=== PATIENT | male | born 1970 | race Caucasian/White ===

== ENCOUNTER 2023-08-01 10:51 | Emergency (ER) | payer OTHER, BC, SELFPAY ==
[2023-08-01 11:13] VITALS: BP 135/92; PULSE 90; RESP 16; TEMP 36.9; O2SAT 98; BMI 26.6
--- NOTE | 2023-08-01 11:39 | CRLHL7_ITS ---
For Patients: As a result of the Century Cures Act, medical imaging exams and procedure reports are released immediately into your electronic medical record. You may view this report before your referring provider. If you have questions, please contact your health care provider. INDICATION: Right lower quadrant pain. TECHNIQUE: CT abdomen and pelvis acquired with 100 cc Omnipaque 350 IV contrast. COMPARISON: None. FINDINGS: Lower chest: Unremarkable. Liver: Unremarkable. Normal in size and attenuation. No suspicious masses. Gallbladder and bile ducts: Unremarkable. No stones or inflammation. No biliary dilatation. Pancreas: Unremarkable. No mass or inflammation. Spleen: Unremarkable. Normal in size. No masses. Adrenal glands: Unremarkable. No nodules. Kidneys: Tiny hypodensities, too small to characterize. No suspicious masses, stones, or hydronephrosis. GI tract: Mild thickening/inflammation about the cecum (series 2/image 100). Normal appendix. No bowel obstruction. Vasculature: Abdominal aorta is normal in caliber. Mesenteric arteries are patent. Lymph nodes: No lymphadenopathy. Peritoneum/Abdominal Wall: Unremarkable. No sign of mass or infiltration. No free air or significant free fluid. Pelvis: Prominent prostate gland.. Bones: Unremarkable for age. IMPRESSION: Mild thickening/inflammation about the cecum, possibly focal cecal colitis/diverticulitis or epiploic appendagitis in the absence of leukocytosis/fevers. No CT evidence of appendicitis or drainable fluid collections. Recommend short-term follow-up after treatment to evaluate for resolution. Alternatively, colonoscopy could be performed. Please note that all CT scans at this facility use dose modulation, iterative reconstruction, and/or weight-based dosing when appropriate to reduce radiation dose to as low as reasonably achievable. Dictated by Abe Faith MD @ 08/01/2023 1:02:30 PM (Electronically Signed)
--- NOTE | 2023-08-01 11:40 | ED_ITS ---
HPI - Abdominal Pain General Chief Complaint: Abdominal Pain Stated Complaint: lower rq abdominal pain Time Seen by Provider: 08/01/23 10:53 History of Present Illness HPI narrative: This 53-year-old male comes in reporting right lower quadrant abdominal pain over the past 3 or 4 days. He states that the pain does come and go in that it is minimal when remaining still. He states that he feels increased pain when standing up straight and with certain movements. He does not report any nausea, vomiting, or fevers. He has had some diarrhea and states that he has changed his diet about 3 weeks ago. He states that he is eating meat only, calling it a carnivore diet. Related Data Previous Rx's ?Medication ?Instructions ?Recorded ketorolac 10 mg tablet 10 mg PO Q8H 5 days #15 tabs 08/01/23 Allergies Allergy/AdvReac Type Severity Reaction Status Date / Time No Known Drug Allergies Allergy Verified 08/01/23 11:18 Review of Systems Status of ROS Reports: 10 or more systems reviewed and unremarkable except as noted in History and below Narrative Constitutional: No fevers, no weight gain or loss. Eyes: No discharge. No vision changes. HENT: No congestion, no sore throat, no ear pain. Cardiovascular: No chest pain, no palpitations. Respiratory: No shortness of breath, no wheezes, no cough. Gastrointestinal: Right lower quadrant abdominal pain. Some episodes of diarrhea. Genitourinary: No dysuria, no hematuria. Musculoskeletal: Normal range of motion. Skin: No rashes, no pruritis. Neurological: No dizziness, weakness, sensory change, speech change. Endo/Heme/Allergies: No bruising or bleeding. No polydipsia. Pysch: no suicidality, no anxiety, no insomnia. All other systems reviewed and are negative. Exam Narrative: Exam Narrative: Constitutional: Well-developed, well-nourished, no acute distress. HEENT: Normocephalic, atraumatic. Neck: Normal range of motion. Nontender. Supple. Heart: Regular. No murmurs. Normal rate. Intact distal pulses. Lungs: Clear to auscultation. No chest discomfort. No wheezes, rhonchi, or rales. Abdomen: Normal bowel sounds. Tenderness in the right mid abdomen above McBurney's point. Rovsing sign is mildly positive. Also there is mild rebound tenderness Genitalia: Deferred. Back: No midline tenderness. Normal range of motion. Extremities: Normal range of motion. No injury. Skin: Intact. No rash. Warm. No erythema or pallor. Neurologic: No altered sensation. No weakness. Alert and oriented. Psychiatric: No suicidality. No anxiety or depression. No insomnia. Nursing notes and vitals signs are reviewed. Const: Vital Signs, click to edit/add: Vital Signs - 24 hr 08/01/23 11:13 Temperature 98.5 F Pulse Rate [Right Pulse Oximeter] 90 Respiratory Rate 16 Blood Pressure [Ri ght Upper Arm] 135/92 H Pulse Oximetry 98 Oxygen Delivery Me thod Room Air Course Vital Signs Vital signs: Initial Vital Signs Temperature 98.5 F 08/01/23 11:13 Temperature Source Temporal Artery Scan 08/01/23 11:13 Pulse Rate 90 08/01/23 11:13 Pulse Rhythm Regular 08/01/23 11:13 Pulse Strength 3+ Normal 08/01/23 11:13 Respiratory Rate 16 08/01/23 11:13 Blood Pressure 135/92 H 08/01/23 11:13 Blood Pressure Mean 106 H 08/01/23 11:13 Blood Pressure Position Supine 08/01/23 11:13 Pulse Oximetry 98 08/01/23 11:13 Oxygen Delivery Method Room Air 08/01/23 11:13 Vital Signs Temperature 98.5 F 08/01/23 11:13 Pulse Rate 90 08/01/23 11:13 Respiratory Rate 16 08/01/23 11:13 Blood Pressure 135/92 H 08/01/23 11:13 Pulse Oximetry 98 08/01/23 11:13 Oxygen Delivery Method Room Air 08/01/23 11:13 Temperature 98.5 F 08/01/23 11:13 Pulse Rate 90 08/01/23 11:13 Respiratory Rate 16 08/01/23 11:13 Blood Pressure 135/92 H 08/01/23 11:13 Pulse Oximetry 98 08/01/23 11:13 Oxygen Delivery Method Room Air 08/01/23 11:13 MDM - Abdominal Pain MDM Narrative Medical decision making narrative: This patient comes in with abdominal pain as described above. He is tripping some triggers that could indicate something like an appendicitis so I did recommend IV contrast with CT imaging of his abdomen and pelvis. Labs are acquired and these returned with normal results and his CT scan also is ruling out important things. There is a mild thickening of his colon that may be due to epiploic appendagitis. This was reassuring to the patient. He does have plans to have a colonoscopy done. I did provide a prescription for Toradol. Lab Data Labs: Lab Results 08/01/23 Range/Units 11:50 WBC 6.79 (4.50-11.00) K/uL RBC 5.72 (4.30-5.90) m/uL Hgb 16.6 (13.5-17.5) gm/dL Hct 48.4 (37.0-53.0) % MCV 85 (80-100) fL MCH 29 (26-34) pg MCHC 34 (32-36) gm/dL RDW Coeff of Carly 13.1 (11.5-15.5) % Plt Count 353 (140-440) K/uL Neut % (Auto) 63.7 (42.0-72.0) % Lymph % (Auto) 25.2 (20-44) % [place] % (Auto) 9.6 (0.0-11.0) % Eos % (Auto) 0.9 (0.0-7.0) % Baso % (Auto) 0.3 (0.0-3.0) % Neut # (Auto) 4.33 (1.7-7.0) K/uL Lymph # (Auto) 1.71 (0.90-2.90) K/uL [place] # (Auto) 0.70 (0.00-0.90) K/UL Eos # (Auto) 0.06 (0.00-0.50) K/uL Baso # (Auto) 0.02 (0.00-0.30) K/uL Abs Immat Gran (auto) 0.02 (0.00-0.30) K/uL Imm/Tot Granulo (auto) 0.3 % Sodium 136 (135-149) mmol/L Potassium 4.1 (3.6-5.1) mmol/L Chloride 104 (96-114) mmol/L Carbon Dioxide 16 L (20-32) mmol/L Anion Gap 16 H (7-15) mEq/L BUN 9 (7-30) mg/dL Creatinine 0.8 (0.5-1.5) mg/dL Estimated Creat Clear 116.35 Estimated GFR 107 ml/min Glucose 65 (60-115) mg/dL Calcium 9.2 (8.4-10.6) mg/dL Imaging Data CT scan - abdomen: Radiologist's impression: Mild thickening/inflammation about the cecum, possibly focal cecal colitis/diverticulitis or epiploic appendagitis in the absence of leukocytosis/fevers. No CT evidence of appendicitis or drainable fluid collections. Recommend short-term follow-up after treatment to evaluate for resolution. Alternatively, colonoscopy could be performed. Discharge Plan Discharge Clinical Impression: Abdominal pain Patient Disposition: Home, Self-Care Condition: Stable Additional Instructions: Take medication as needed and indicated. Increase diet as tolerated. Follow up with MD for colonoscopy and otherwise as needed. Return if worsening. Prescriptions: New ketorolac 10 mg tablet 10 mg PO Q8H 5 Days Qty: 15 0RF Follow Up/Referrals: Provider,Not a Local [Primary Care Provider] - Stand Alone Forms: [facility] Info Instructions
[2023-08-01 12:20] LABS: Basophils Absolute Auto 0.02 K/uL (0.00-0.30); Basophils Percent Auto 0.3 % (0.0-3.0); Eosinophils Absolute Auto 0.06 K/uL (0.00-0.50); Eosinophils Percent Auto 0.9 % (0.0-7.0); Hematocrit 48.4 % (37.0-53.0); Hemoglobin* 16.6 gm/dL (13.5-17.5); Immature Granulocytes Abs Auto 0.02 K/uL (0.00-0.30); Immature Granulocytes Pct Auto 0.3 %; Lymphocytes Absolute Auto 1.71 K/uL (0.90-2.90); Lymphocytes Percent Auto 25.2 % (20-44); Mean Corpuscular HGB Conc 34 gm/dL (32-36); Mean Corpuscular Hemoglobin 29 pg (26-34); Mean Corpuscular Volume 85 fL (80-100); Monocytes Percent Auto 9.6 % (0.0-11.0); Neutrophils Absolute Auto 4.33 K/uL (1.7-7.0); Neutrophils Percent Auto 63.7 % (42.0-72.0); Platelet Count* 353 K/uL (140-440); RDW Coefficient of Variation % 13.1 % (11.5-15.5); Red Blood Count 5.72 m/uL (4.30-5.90); White Blood Count* 6.79 K/uL (4.50-11.00)
[2023-08-01 12:22] LABS: Slide Review Reflex No
--- OUTSIDE RECORDS SUMMARY | 2023-08-01 12:23 | XMS_ITS | Clinical Summary ---
Author Organization [facility] Address [place], [place] [address] Care Team Providers Care Support Services Manager Name Role Phone Paris Raymond Primary Care Provider Unav ailable Allergies No known active allergies Medications Medication Sig Dispensed Refills Start Date End Date Status fluticasone (50 mcg per actuation) nasal solution (FLONASE) Inhale 1 [place] into affected nostril(s) once daily. 02/20/2021 Active hydrOXYzine pamoate (VISTARIL) 25 mg capsule Take 25 mg by mouth once daily. 01/11/2021 Active pantoprazole (PROTONIX) 40 mg delayed-release tablet Take 40 mg by mouth once daily. 02/20/2021 Active psyllium husk (MetamuciL) 3.4 gram/5.4 gram powd TAKE 1 TEASPOONFUL BY MOUTH EVERY MORNING MIXED IN JUICE OR WATER DIRECTED *CAN INCREASE TO 2 TEASPOONS DAILY IF NEEDED* 02/20/2021 Active rosuvastatin (CRESTOR) 20 mg tablet Take 0.5 Tablets by mouth at bedtime. 02/21/2021 Active SUMAtriptan (IMITREX) 50 mg tablet Take 50 mg by mouth. 02/20/2021 Acti ve oxyCODONE-acetamin ophen (PERCOCET) 5-325 mg per tabletIndications: Inguinal hernia, right Take 1 Tablet by mouth every 4 hours if needed for Pain. Max acetaminophen dose: 4000mg in 24 hrs. 15 Tablet 06/06/2021 Active Active Problems Problem Noted Date Diagnosed Date Tobacco dependence due to cigarettes 06/01/2021 Migraine 06/01/2021 Obstructive sleep apnea of adult 06/01/2021 Hyperlipidemia 06/01/2021 Herniation of lumbar intervertebral disc without myelopathy 06/01/2021 Overview: Sep 25, 2010 Entered By: KEANU SHANNON Comment: h/o discectomy/surgery Gastroesophageal reflux disease 06/01/2021 Gambling 06/01/2021 Alcohol dependence 06/01/2021 Anxiety 06/01/2021 Major depressive disorder 06/01/2021 Constipation 06/01/2021 Inguinal hernia, right 06/01/2021 Immunizations Name Administration Dates Next Due Hepatitis B (Adult) 04/08/2009,02/23/1997,1996 Influenza Virus, Unspecified 12/10/2012,11/29/19 07 Influenza, IIV3 (Age >=3 years) 01/24/2010 TD, UNSPECIFIED 02/11/2005,02/11/2001 Td (Age >=7 Years) 11/25/2001 Tdap 08/11/2015,04/08/2009 Family History Medical History Relation Name Comments Anesthesia Problem No Family History Social History Tobacco Use Types Packs/Day Years Used Date Smoking Tobacco: Every Day Cigarettes Smokeless Tobacco: Never Tobacco Cessation:Counseling Given: Yes Alcohol Use Standard Drinks/Week Comments Yes 0 (1 standard drink = 0.6 oz pure alcohol) whiskey. 1/4 bottle of 3.75 ml per episode Social Connections Answer Date Recorded Frequency of Communication with Friends and Fami ly Not on file 02/11/2021 Financial Resource Strain Answer Date R ecorded Difficulty of Paying Living Expenses Not on file 02/11/2021 Difficulty of Paying Living Expenses Not on file 02/11/2021 Sex and Gender Information Value Date Recorded Sex Assigned at Not on file Gender Identity Not on file Sexual Orientation Not on file Obstetrics History Last Filed Vital Signs Vital Sign Reading Time Taken Comments Blood Pressure 112/72 06/19/2021 4:09 PM CDT Pulse 83 06/06/2021 5:15 PM CDT Temperature 36.1 ??C (97 ??F) 06/06/2021 3:35 PM CDT Respiratory Rate 18 06/06/2021 5:00 PM CDT Oxygen Saturation 95% 06/06/2021 5:15 PM CDT Inhaled Oxygen Concentration - - Weight 103.8 kg (228 lb 12.8 oz) 06/19/2021 4:09 PM CDT Height 182.2 cm (5' 11.75) 06/06/2021 1:06 PM C DT Body Mass Index 31.25 06/06/2021 1:06 PM CDT Plan of Treatment Health Maintenance Due Date Last Done Comments Depression screening for age 12+ 1984 HIV for age 15-65 02/23/1987 Hepatitis C screening for age 18-79 02/23/1990 Colonoscopy through age 75 02/23/2017 Lipids for age 45-75 02/23/2017 Zoster (shingles) series for age 50+ (1 of 2) 02/23/2022 BMI (ht and wt on same day) for age 18+ 06/01/2022 06/01/2021, 05/10/2021 COVID-19 vaccine series ( season) 2022 Influenza for age 50-64 10/13/2023 12/11/19 13, 01/24/2010, 11/28/2006 Tetanus booster 08/10/2025 08/11/2015, 03/15, 02/11/2005, Additional history exists Tdap Completed 08/11/2015, 04/08/2009 Pneumococcal series for age 6-64 Aged Out No longer eligible based on patient's age to complete this topic Medical Devices Implanted Type Area Support Services Manager Device Identifier Shelf Expiration Date Model / Serial / Lot Mesh Inguinal 3x6in [employer] - [id number] Implanted:Qty: 1 on 06/06/2021 by Kyler Juarez MD at [facility] [employer] 10/08/2024 [id number] / / [id number] Advance Directives * Full Code (Latest Code Status on File) Date Activated Date Inactivated Comments 06/06/2021 12:43 PM 06/06/2021 7:39 PM Question Answer Comments Code Status Discussion: Not Discussed Care Teams Support Services Manager Relationship Specialty Start Date End Date Paris Raymond PCP - General 05/30/07
--- OUTSIDE RECORDS SUMMARY | 2023-08-01 12:23 | XMS_ITS | Encounter Summary ---
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 This section includes the names of all active insurance providers for the patient. Insurance Provider Type of Coverage Plan Name Start of Policy Coverage End of Policy Coverage Group Number Member ID Insurance Provider's Telephone Number Policy Whiting's Name Patient's Relationship to Policy Whiting [employer] PREFERRED PROVIDER ORGANIZAT ION (PPO) FEP BASIC PLUS ONE 2023 [id number] [phone] Lanre CASTANEDA PATIENT [place] F[place] PREFERRED PROVIDER ORGANIZAT ION (PPO) FEP BASIC PLUS ONE 2023 [id number] Lanre CASTANEDA PATIENT [employer] FEP RX PRESCRIPT ION FEPRX Feb 17, 2017 [id number] Lanre CASTANEDA PATIENT Selected Encounter This section includes the information on record at [place] for the Encounter. Date/Time Encounter Type Encounter Description Reason Provider Source June 27, 2023 12:26 PM Outpatient Encounter EVENT (HISTORICAL) [facility] Encounter Template Text not used by [place] Plan of Treatment: Future Appointments (+ 6 months) and Future Tests (+/- 45 days) The Plan of Treatment section includes future care activities for the patient from all [place] treatmentfacilities. This section includes future appointments and future orders which are active, pending or scheduled. Future Appointments This section includes appointments that were scheduled to occur 6 months from the date of the Encounter, up to a maximum of 20 appointments. The data comes from all [place] treatment facilities. Appointment Date/Time Appointment Type Appointme nt Facility Name Nov 28, 2023 02:40 PM AMBULATORY [facility] SURGERY [facility] Active, Pending, and Scheduled Orders This section includes a listing of several types of active, pending, and scheduled orders, including clinic medications orders, diagnostic test orders, procedure orders and consult orders; where the start date of the order is 45 days before the date of the Encounter or 45 days after the date of theEncounter. The data comes from all [facility]. Test Date/Time Test Type Test Details Facility Name May 29, 2023 03:10 PM Consult Order ENT OUTPT Cons Con sultant's Choice [facility] Jul 30, 2023 11:49 AM Consult Order COLONOSCOP Y DIAGNOSTIC OUTPT Cons Solutions Development Analyst[facility] Lab Results: +/- 30 days of the encounter This section includes the Chemistry and Hematology Lab Results on record with [place] for the patient. Radiology Reports and Pathology Reports are provided separately, in subsequent sections. Lab Results This section contains the Chemistry/Hematology Results that were resulted 30 days before or 30 daysafter the date of the Encounter. Date/Time Source Result Type Result - Unit Interpretation Reference Range Comment May 29, 2023 03:25 PM [facility] HEMOGLOBIN A1C Specimen Type: BLOOD Comment: Values obtained from A1C measurements can vary. For typical A1C assays, a reported value of 7.0 could actually be between 6.7 and 7.3 if measured by a reference method. A reported value of 9.0 could actually be between 8.7 and 9.3. Ref: http://www.ngsp .org/CAPdata.as p Ordering Provider: ANA WIGGINS Report Released Date/Time: May 29, 2023 02:58 PM Reporting Lab: [facility] [id number] Performing Lab: [facility] [id number] HEMOGLOBIN A1C 5.2 4.0-6.0 May 29, 2023 03:25 PM [facility] TSH W/REFLEX TO FREE T4 Specimen Type: PLASMA Comment: Elevated triglyceride result from a non-fasting specimen should be interpreted with caution. A fasting panel is recommended for accurate triglycerides when trigs are >200 from a non-fasting specimen. Ordering Provider: ANA WIGGINS Report Released Date/Time: May 29, 2023 02:58 PM Reporting Lab: [facility] [phone] Performing Lab: [facility] [id number] TSH 1.66 u[IU]/mL 0.35-4.94 May 29, 2023 03:25 PM [facility]LE [facility] BASIC METABOLIC PANEL+MG Specimen Type: PLASMA Comment: Elevated triglyceride result from a non-fasting specimen should be interpreted with caution. A fasting panel is recommended for accurate triglycerides when trigs are >200 from a non-fasting specimen. Ordering Provider: ANA WIGGINS Report Released Date/Time: May 29, 2023 02:58 PM Reporting Lab: [facility] [id number] Performing Lab: [facility] [phone] CREATININE 0.8 mg/dL 0.7-1.2 UREA NITROGEN 12 mg/dL 8-26 GLUCOSE 88 mg/dL 70-100 SODIUM 134 mmol/L L 136-145 POTASSIUM 4.1 mmol/L 3.5-5.1 CHLORIDE 105 mmol/L 98-107 CO2 20 mmol/L L 22-29 CALCIUM 9.8 mg/dL 8.4-10.2 MAGNESIUM 1.9 mg/dL 1.6-2.6 ANION GAP 9 mmol/L 5-15 .CREAT EGFR(CKD-EPI) >90 >60 May 29, 2023 03:25 PM [facility] LIPID PANEL,NON-FASTING Specimen Type: PLASMA Comment: Elevated triglyceride result from a non-fasting specimen should be interpreted with caution. A fasting panel is recommended for accurate triglycerides when trigs are >200 from a non-fasting specimen. Ordering Provider: ANA WIGGINS Report Released Date/Time: May 29, 2023 02:58 PM Reporting Lab: [place] [phone] Performing Lab: [facility] [id number] CHOLESTEROL 268 mg/dL H <199 .HDL 31 mg/dL L >40 LDL CALCULATION 185 mg/dL H <99 VLDL CALCULATION 52 mg/dL H <29 NON HDL CHOLESTEROL 237 mg/dL H <129 TRIG(NON FASTING) 258 mg/dL H <149 May 29, 2023 03:25 PM [facility] CBC & DIFF Specimen Type: BLOOD Comment: Automated Differential Performed Ordering Provider: ANA WIGGINS Report Released Date/Time: May 29, 2023 02:58 PM Reporting Lab: [facility] [phone] Performing Lab: [facility] [id number] WBC 8.59 10*3/uL 4.0-11.0 RBC 5.68 10*6/uL 4.6-6.2 HGB 16.5 g/dL 13.5-17.9 HCT 47.7 41-54 MCV 84.0 fL 80-100 MCH 29.0 pg 27-33 MCHC 34.6 g/dL 32.0-37.5 PLT 451 10*3/uL H 150-400 MPV 8.9 fL 7.4-10.4 NEUT 54.1 40.0-80.0 LYMPHS 35.0 15.0-45.0 MONO 9.0 2.0-12.0 EOSINO 0.8 0.0-6.0 BASO 0.5 0.0-2.0 RDW 13.2 11.5-14.5 ABS LYMPH 3.01 10*3/uL 1.0-4.0 ABS MONO 0.77 10*3/uL 0.1-1.0 ABS NEUT 4.65 10*3/uL 2.0-7.7 ABS EOS 0.07 10*3/uL 0-0.5 ABS BASO 0.04 10*3/uL 0-0.2 IG(META,MYELO ,PRO) 0.6 ABS IMMATURE GRAN 0.05 10*3/uL 0-0.1 Social History: Smoking Status (Most current) and Tobacco Use (All prior to encounter date) This section includes the most current, and the historical, smoking and tobacco- related health factors from the [place] facility where the Encounter took place. Current Smoking Status This section includes the most current smoking, or tobacco-related health factor, from the [place] facility where the Encounter took place. Date/Time Current Smoking Status Comment Fede amaya Apr 09, 2017 08:20 AM CURRENT TOBACCO USER [facility] Tobacco Use History This section includes a history of the smoking, or tobacco-related health factors, that were collected on or before the date of the Encounter. The data comes from the [place] facility where the Encounter took place. Date/Time Smoking Status/Tobacco Use Comment F acility Aug 02, 2015 03:27 PM CURRENT TOBACCO USER [facility] Oct 15, 2013 03:00 PM CURRENT TOBACCO USER [facility] Dec 10, 2012 12:12 PM CURRENT TOBACCO USER [facility] Feb 14, 2012 01:04 PM CURRENT TOBACCO USER [facility] Sep 25, 2010 01:00 PM CURRENT TOBACCO USER [facility] Jan 05, 2008 09:13 AM PATIENT IS TOBACCO USER [facility] Apr 22, 2007 03:08 PM CURRENT TOBACCO USER [facility] June 25, 2006 01:48 PM CURRENT TOBACCO USER [facility] Advance Directives: All historical and current Section Date Range: From patient's date of to the date document was created. This section includes ALL of a patient's completed or amended [place] Advance and Rescinded Directives. The entries below indicate that a directive exists for the patient, but an actual copy is not included with this document. The data comes from all [facility]. Date Advance Directives Provider Source Jan 29, 2017 ADVANCE DIRECTIVE DISCUSSION ALEX KURTZ [facility] Radiology Reports: +/- 30 days of the encounter Radiology Reports For cases when an order for radiology services may have been completed prior to the date of the Encounter, the report list includes the Radiology Reports that were completed up to 30 days before dateof the Encounter. For cases when an order for radiology services may have been completed after the date of the Encounter, the report list also includes the Radiology Reports that were completed up to30 days after date of the Encounter. The data comes from all [place] treatment facilities. Date/Time Radiology Report Provider Source June 25, 2023 02:57 PM CHEST 2 VIEWS PA A ND LAT: SALEEM CASTANEDA [id number] -[id number] M Exm Date: JUNE 25, 2023@14:57 Req Phys: KRISTY WIGGINS Pat Loc: [facility] [employer] [facility] RN ( Img Loc: [facility] RADIOLOGY Service: [place] [address] (Case [id number] COMPLETE) CHEST 2 VIEWS PA AND LAT (RAD Detailed) CPT:10118 Reason for Study: cough - follow up pneumonia Clinical History: [place] IS NOT under investigation for COVID-19 or is COVID-19 negative follow up pneumonia Responsible provider name and phone number to notify for critical findings if other than user placing the order and pager listed below: User placing orders pager: Tu [phone] LAST CREATININE 0.8 (05/29/23) Report Status: Verified Date Reported: JUNE 25, 2023 Date Verified: JUNE 25, 2023 Electronic Sales And Service Technician E-Sig:/ES/HUMBERTO CR MD Report: X-RAY EXAM OF chest, PA and lateral INDICATION: Reason for Study: cough - follow up pneumonia [place] IS NOT under investigation for COVID-19 or is COVID-19 negative follow up pneumonia Responsible provider name and phone number to notify for critical findings if other than user placing the order and pager listed below: User placing orders pager: Tu [phone] LAST CREATININE 0.8 (05/29/23) COMPARISON: 05/29/2023 Impression: FINDINGS/IMPRESSION: Heart size and pulmonary vascularity are within normal limits. The appearance of the posterior costophrenic angles is unchanged compared with 05/29/2023. There may be some minimal blunting of the left posterior costophrenic angle, not significantly changed compared with the abdomen pelvis CT dated 02/21/2021. There are no other pulmonary opacities identified. Moderate degenerative changes are seen in the thoracic spine. 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 Img Loc: [facility] RADIOLOGY Service: Unknown (Case [id number] COMPLETE) CHEST 2 VIEWS PA AND LAT (RAD Detailed) CPT:29631 Reason for Study: cough Clinical History: [place] IS NOT under investigation for COVID-19 or is COVID-19 negative cough Responsible provider name and phone number to notify for critical findings if other than user placing the order and pager listed below: User placing orders pager: LAST CREATININE____ Report Status: Verified Date Reported: MAY 29, 2023 Date Verified: MAY 29, 2023 Electronic Sales And Service Technician E-Sig:/ES/GUDELIA HELMS MD Report: EXAMINATION: CHEST 2 VIEWS PA AND LAT 05/29/2023 3:22 PM INDICATION: cough Impression: Heart size and pulmonary vascularity within normal limits. No pulmonary infiltrate or pleural effusion. Subtle blunting of the left posterior costophrenic angle seen on the lateral view. No comparison chest x-ray. Primary Interpreting Staff: GUDELIA HELMS MD, RADIOLOGIST (Electronic Sales And Service Technician) /GUDELIA SINGH [facility]
--- OUTSIDE RECORDS SUMMARY | 2023-08-01 12:23 | XMS_ITS | Continuity of Care Document ---
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 It does not include entries that were removed or entered in error. Problem Status Onset Date Problem Type Date of Resolution Comments Source Alcohol dependence (SNOMED CT 62852403) Active Condition [facility] Anxiety (SNOMED CT 93559742) Active Condition [facility] Constipation Active Condition [facility] Dental abscess Active Condition [facility] Exposure to Potentially Hazardous Substance (SCT 073372010434856) Active Condition Nov 07, 2022 Entered By: Israel WIGGINS Comment: [facility] Gambling Active Condition [facility] Gastroesophageal reflux disease Active Condition [facility] Herniated Lumbar Disc Active Condition Sep 25, 2010 Entered By: KEANU SHANNON Comment: h/o discectomy/ surgery [facility] Hyperlipidemia (SNOMED CT 39282299) Active Condition [facility] Major depressive disorder (SNOMED CT 292904379) Active Condition [facility] Male erectile disorder (ICD-9-CM 302.72/607.84) Active Condition [facility] Migraine Active Condition [facility] Obstructive sleep apnea of adult Active Condition [facility] Other Malaise and Fatigue (ICD-9-CM 780.79) Active Condition [facility] Pain in joint involving ankle and foot (ICD-9-CM 719.47) Active Condition [facility] Posttraumatic stress disorder (SNOMED CT 05014669) Active Condition [facility] Tinea pedis Active Condition [facility] Tinea unguium Active Condition [facility] Tobacco dependence caused by cigarettes (SNOMED CT 41188629526305759) [facility] Diarrhea Inactive Condition 09/25/2010 [facility] Dysuria * (ICD-9-CM 788.1) Inactive Condition 09/25/2010 [facility] Lumbar Radiculopathy (ICD-9-CM 724.4) Inactive Condition 09/25/2010 [facility] Pain, Low Back Inactive Condition 09/25/2010 SHOBHA CASTILLO [facility] Pre-Op Exam Inactive Condition 09/25/2010 [facility] Spinal Stenosis, Lumbar Inactive Condition 09/25/2010 [facility] Diagnosis: ICD-10-CM Z71.89 Other specified counseling Active Diagnosis [facility] Diagnosis: ICD-10-CM J01.90 Acute sinusitis, unspecified Active Diagnosis [facility] Diagnosis: ICD-10-CM Z00.01 Encounter for general adult medical exam w abnormal findings Active Diagnosis [facility] Diagnosis: ICD-10-CM K59.00 Constipation, unspecified Active Diagnosis [facility] Diagnosis: ICD-10-CM L72.3 Sebaceous cyst Active Diagnosis [facility] Diagnosis: ICD-10-CM L72.0 Epidermal cyst Active Diagnosis [facility] Diagnosis: ICD-10-CM R22.2 Localized swelling, mass and lump, trunk Active Diagnosis [facility] Diagnosis: ICD-10-CM F10.10 Alcohol abuse, uncomplicated Active Diagnosis [facility] Diagnosis: ICD-10-CM L98.9 Disorder of the skin and subcutaneous tissue, unspecified Active Diagnosis [facility] Diagnosis: ICD-10-CM F17.210 Nicotine dependence, cigarettes, uncomplicated Active Diagnosis [facility] Diagnosis: ICD-10-CM F43.12 Post-traumatic stress disorder, chronic Active Diagnosis [facility] Diagnosis: ICD-10-CM F33.1 Major depressive disorder, recurrent, moderate Active Diagnosis [facility] Medications Combined list of outpatient medications from Department of Defense and [facility] Affairs facilities.Medications provided include 1) outpatient medications from the last 15 months, and 2) patient-reported medications. Medication Details Route Status Patient Instructions Prescription Expires Prescription Number Last Dispense Date Ordering Provider Order Date Order Qty Source ALBUTEROL 90MCG/ACTUA T (CFC-F) INHL,ORAL,8 .5GM DOSE COUNTER INHALE 2 PUFFS BY MOUTH QID PRN RESPIR ATORY (INHAL ATION) ACTIVE NALLUSAMY ,VASUMATH I 2023 [facility] CEFADROXIL 500MG CAP TAKE TWO CAPSULES BY MOUTH TWICE A DAY ORAL 12/27/2022 [id number] 3 NALLUSAMY ,VASUMATH I 2022 20 [facility] CETIRIZINE HCL 10MG TAB TAKE ONE TABLET BY MOUTH EVERY DAY FOR ALLERGIE S ORAL ACTIVE 05/29/2024 [id number] 4 NALLUSAMY ,VASUMATH I 2023 90 [facility] DOXYCYCLINE HYCLATE 100MG TAB TAKE ONE TABLET BY MOUTH TWICE A DAY FOR ABSCESS ORAL 12/23/2022 [id number] HERMILOPATRICK RACHEL 2022 14 [facility] DOXYCYCLINE HYCLATE 50MG CAP TAKE 2 CAPSULES BY MOUTH TWICE A DAY ORAL ACTIVE NALLUSAMY ,VASUMATH I 2023 [facility] FLUTICASONE PROPIONATE 50MCG/SPRAY SOLN,NASAL, 16GM SPRAY 1 SPRAY IN EACH NOSTRIL TWICE A DAY USE REGULARL Y FOR RELIEF OF ALLERGIE S/CONGES TION NASAL HOLD 03/29/2024 [id number] 4 NALLUSAMY ,VASUMATH I 2023 3 [facility] FLUTICASONE PROPIONATE 50MCG/SPRAY SOLN,NASAL, 16GM SPRAY 1 SPRAY IN EACH NOSTRIL TWICE A DAY USE REGULARL Y FOR RELIEF OF ALLERGIE S/CONGES TION NASAL DISCONT INUED 05/17/2023 [id number] 4 NALLUSAMY ,VASUMATH I 2022 3 [facility] IBUPROFEN 200MG TAB TAKE ONE TABLET THREE TIMES A DAY NEEDED ACTIVE NADIA VARGAS NNE 2006 [facility] LACTOBACILL US ACIDOPHILUS TAB TAKE 1 TABLET BY MOUTH TWICE A DAY FOR SUPPLEME NTATION ORAL ACTIVE 05/29/2024 [id number] 4 NALLUSAMY ,VASUMATH I 2023 200 [facility] LACTOBACILL US ACIDOPHILUS TAB TAKE 1 TABLET BY MOUTH TWICE A DAY FOR SUPPLEME NTATION ORAL DISCONT INUED 11/28/2023 [id number] 3 NALLUSAMY ,VASUMATH I 2022 200 [facility] LORATADINE 10MG TAB TAKE ONE TABLET BY MOUTH EVERY DAY FOR ALLERGIE S ORAL DISCONT INUED BY PROVIDE R 03/29/2024 [id number] 4 NALLUSAMY ,VASUMATH I 2023 90 [facility] NICOTINE 21MG/24HRS PATCH APPLY 1 PATCH TOPICALL Y EVERY DAY TO QUIT TOBACCO TOPICA L 07/14/2023 [id number] 3 SMILEY MARIA 2022 28 [facility] NICOTINE POLACRILEX 2MG MINI LOZENGE DISSOLVE 1 MINI LOZENGE IN MOUTH EVERY 2 HOURS NEEDED TO QUIT TOBACCO ORAL ACTIVE 08/18/2023 [id number] 3 SMILEY MARIA 2022 162 [facility] NICOTINE POLACRILEX 4MG MINI LOZENGE DISSOLVE 1 MINI LOZENGE IN MOUTH EVERY 2 HOURS NEEDED TO QUIT TOBACCO ORAL DISCONT INUED (EDIT) 07/14/2023 [id number] 3 SMILEY MARIA 2022 162 [facility] PANTOPRAZOL E NA 40MG TAB,EC TAKE ONE TABLET BY MOUTH EVERY DAY NEEDED FOR STOMACH ACID - TAKE ON EMPTY STOMACH ORAL ACTIVE 05/29/2024 [id number] 4 NALLUSAMY ,VASUMATH I 2023 90 [facility] PANTOPRAZOL E NA 40MG TAB,EC TAKE ONE TABLET BY MOUTH EVERY DAY NEEDED ONE-HALF HOUR BEFORE EATING. TAKE 30 MIN BEFORE FIRST ORAL INTAKE OF THE MORNING OR 2 HOURS AFTER LAST MEAL OF EVENING LONG STAY CONSISTE NT ONE-HALF HOUR BEFORE EATING. TAKE 30 MIN BEFORE FIRST ORAL INTAKE OF THE MORNING OR 2 HOURS AFTER LAST MEAL OF EVENING LONG STAY CONSISTE NT ORAL DISCONT INUED 05/17/2023 [id number] 3 NALLUSAMY ,VASUMATH I 2022 90 [facility] POLYETHYLEN E GLYCOL 3350 PWDR,ORAL TAKE 17 GRAMS BY MOUTH EVERY DAY NEEDED FOR CONSTIPA TION *MIX IN 4 TO 8 OUNCES OF LIQUID DIRECTED *USE COVER TO MEASURE POWDER* ORAL ACTIVE 05/29/2024 [id number] 4 NALLUSAMY ,VASUMATH I 2023 510 [facility] POLYETHYLEN E GLYCOL 3350 PWDR,ORAL TAKE 17 GRAMS BY MOUTH EVERY DAY NEEDED FOR CONSTIPA TION *MIX IN 4 TO 8 OUNCES OF LIQUID DIRECTED *USE COVER TO MEASURE POWDER* ORAL DISCONT INUED 05/17/2023 [id number] 3 NALLUSAMY ,VASUMATH I 2022 510 [facility] PSYLLIUM PWDR,ORAL TAKE 1 TEASPOON FUL BY MOUTH EVERY MORNING MIXED IN JUICE OR WATER DIRECTED *CAN INCREASE TO 2 TEASPOON S DAILY IF NEEDED* ORAL 05/17/2023 [id number] 3 NALLUSAMY ,VASUMATH I 2022 1170 [facility] ROSUVASTATI N CA 10MG TAB TAKE ONE TABLET BY MOUTH AT BEDTIME ORAL ACTIVE 05/29/2024 [id number] 4 NALLUSAMY ,VASUMATH I 2023 90 [facility] ROSUVASTATI N CA 10MG TAB TAKE ONE TABLET BY MOUTH AT BEDTIME ORAL DISCONT INUED 05/19/2023 [id number] 3 NALLUSAMY ,VASUMATH I 2022 90 [facility] ROSUVASTATI N CA 20MG TAB TAKE ONE-HALF TABLET BY MOUTH AT BEDTIME ORAL DISCONT INUED (EDIT) 05/17/2023 [id number] 3 NALLUSAMY ,VASUMATH I 2022 45 [facility] SUMATRIPTAN SUCCINATE 50MG TAB TAKE ONE TABLET BY MOUTH EVERY DAY NEEDED FOR HEADACHE - MAY REPEAT ONCE AFTER 2 HOURS IF NEEDED. MAXIMUM OF 4 TABLETS (200MG) WITHIN 24 HOURS. ORAL ACTIVE 05/29/2024 [id number] 4 NALLUSAMY ,VASUMATH I 2023 9 [facility] SUMATRIPTAN SUCCINATE 50MG TAB TAKE ONE TABLET BY MOUTH EVERY DAY NEEDED MAY REPEAT AFTER 2 HOURS IF NEEDED. MAXIMUM OF 200 MG IN 24 HOURS. FOR HEADACHE ORAL DISCONT INUED 05/17/2023 [id number] 3 TARIQ WIGGINS I 2022 9 [facility] Allergies, Adverse Reactions, Alerts Combined list of allergies from Department of Defense and Veterans Affairs facilities. It does not include entries that were removed or entered in error. Substance Category Reaction Severity Reaction type Status Date Reported Comments Source LORATADINE Propensity to adverse reactions to drug (finding) Anxiety active 4 [facility] Immunizations Combined list of available immunizations from the Department of Defense and Veterans Affairs facilities. Immunization Series Date Given Administered By Site Reaction Lot Number CVX Code Drug Wic Site Coordinator Status Comments Source TDAP 2015 115 complet ed [id number], 12/29/17 [facility] INFLUENZA, UNSPECIFIED FORMULATION 2012 88 complet ed [facility] TD(ADULT) UNSPECIFIED FORMULATION 2005 139 complet ed [facility] TD(ADULT) UNSPECIFIED FORMULATION 2001 139 complet ed [facility] Results Combined list of recent chemistry, hematology and other laboratory results from Department of [employer] and Veterans Affairs, ranging from 15 months to all on record, depending upon the facility. Order Name Results Value Reference Range Date Interpretation Specimen Comments Source OCCULT BLOOD FIT X1 SCREEN HEMOGLOBIN .GASTROINT ESTINAL.LO WER [PRESENCE] IN STOOL BY IMMUNOASSA Y POSITIVE 07/28 [facility] Specimen Type: FECES No comment entered. Ordering Provider: Israel WIGGINS Report Released Date/Time: May 29, 2023 02:58 PM Reporting Lab: [facility] [phone] Performing Lab: [facility] [address] [facility] HEMOGLOB IN A1C HEMOGLOBIN A1C/HEMOGL OBIN.TOTAL IN BLOOD 5.2 4.0 - 6.0 05/28 Specimen Type: BLOOD Comment: Values obtained from A1C measurement s can vary. For typical A1C assays, a reported value of 7.0 could actually be between 6.7 and 7.3 if measured by a reference method. A reported value of 9.0 could actually be between 8.7 and 9.3. Ref: http://www. [facility].org/[place] Pdata.asp Ordering Provider: Israel WIGGINS Report Released Date/Time: May 29, 2023 02:58 PM Reporting Lab: [facility] [address] Performing Lab: [facility] [address] [facility] TSH W/REFLEX TO FREE T4 THYROTROPI N [UNITS/VOL UME] IN SERUM OR PLASMA 1.66 u[IU]/mL 0.35 - 4.94 05/28 Specimen Type: PLASMA Comment: Elevated triglycerid e result from a non-fasting specimen should be interpreted with caution. A fasting panel is recommended for accurate triglycerid es when trigs are >200 from a non-fasting specimen. Ordering Provider: Israel WIGGINS Report Released Date/Time: May 29, 2023 02:58 PM Reporting Lab: [facility] [address] Performing Lab: [facility] [address] [facility] LIPID PANEL,NO N-FASTIN G CHOLESTERO L [MASS/VOLU ME] IN SERUM OR PLASMA 268 mg/dL <199 - 199 05/28 H Specimen Type: PLASMA Comment: Elevated triglycerid e result from a non-fasting specimen should be interpreted with caution. A fasting panel is recommended for accurate triglycerid es when trigs are >200 from a non-fasting specimen. Ordering Provider: Israel WIGGINS Report Released Date/Time: May 29, 2023 02:58 PM Reporting Lab: [facility] [address] Performing Lab: [facility] [address] [facility] LIPID PANEL,NO N-FASTIN G CHOLESTERO L IN HDL [MASS/VOLU ME] IN SERUM OR PLASMA 31 mg/dL 40 05/28 L Specimen Type: PLASMA Comment: Elevated triglycerid e result from a non-fasting specimen should be interpreted with caution. A fasting panel is recommended for accurate triglycerid es when trigs are >200 from a non-fasting specimen. Ordering Provider: Israel WIGGINS Report Released Date/Time: May 29, 2023 02:58 PM Reporting Lab: [facility] [address] Performing Lab: [place] [phone] [facility] LIPID PANEL,NO N-FASTIN G CHOLESTERO L IN LDL [MASS/VOLU ME] IN SERUM OR PLASMA BY CALCULATIO N 185 mg/dL <99 - 99 05/28 H Specimen Type: PLASMA Comment: Elevated triglycerid e result from a non-fasting specimen should be interpreted with caution. A fasting panel is recommended for accurate triglycerid es when trigs are >200 from a non-fasting specimen. Ordering Provider: Israel WIGGINS Report Released Date/Time: May 29, 2023 02:58 PM Reporting Lab: [facility] [address] Performing Lab: [facility] [address] [facility] LIPID PANEL,NO N-FASTIN G CHOLESTERO L IN VLDL [MASS/VOLU ME] IN SERUM OR PLASMA BY CALCULATIO N 52 mg/dL <29 - 29 05/28 H Specimen Type: PLASMA Comment: Elevated triglycerid e result from a non-fasting specimen should be interpreted with caution. A fasting panel is recommended for accurate triglycerid es when trigs are >200 from a non-fasting specimen. Ordering Provider: Israel WIGGINS Report Released Date/Time: May 29, 2023 02:58 PM Reporting Lab: [facility] [address] Performing Lab: [facility] [address] [facility] LIPID PANEL,NO N-FASTIN G CHOLESTERO L NON HDL [MASS/VOLU ME] IN SERUM OR PLASMA 237 mg/dL <129 - 129 05/28 H Specimen Type: PLASMA Comment: Elevated triglycerid e result from a non-fasting specimen should be interpreted with caution. A fasting panel is recommended for accurate triglycerid es when trigs are >200 from a non-fasting specimen. Ordering Provider: Israel WIGGINS Report Released Date/Time: May 29, 2023 02:58 PM Reporting Lab: [facility] [phone] Performing Lab: [facility] [address] [facility] LIPID PANEL,NO N-FASTIN G TRIGLYCERI DE [MASS/VOLU ME] IN SERUM OR PLASMA 258 mg/dL <149 - 149 05/28 H Specimen Type: PLASMA Comment: Elevated triglycerid e result from a non-fasting specimen should be interpreted with caution. A fasting panel is recommended for accurate triglycerid es when trigs are >200 from a non-fasting specimen. Ordering Provider: Israel WIGGINS Report Released Date/Time: May 29, 2023 02:58 PM Reporting Lab: [facility] [phone] Performing Lab: [facility] [address] [facility] BASIC METABOLI C PANEL+MG CREATININE [MASS/VOLU ME] IN SERUM OR PLASMA 0.8 mg/dL 0.7 - 1.2 05/28 Specimen Type: PLASMA Comment: Elevated triglycerid e result from a non-fasting specimen should be interpreted with caution. A fasting panel is recommended for accurate triglycerid es when trigs are >200 from a non-fasting specimen. Ordering Provider: Israel WIGGINS Report Released Date/Time: May 29, 2023 02:58 PM Reporting Lab: [facility] [address] Performing Lab: [facility] [address] [facility] BASIC METABOLI C PANEL+MG UREA NITROGEN [MASS/VOLU ME] IN SERUM OR PLASMA 12 mg/dL 8 - 26 05/28 Specimen Type: PLASMA Comment: Elevated triglycerid e result from a non-fasting specimen should be interpreted with caution. A fasting panel is recommended for accurate triglycerid es when trigs are >200 from a non-fasting specimen. Ordering Provider: Israel WIGGINS Report Released Date/Time: May 29, 2023 02:58 PM Reporting Lab: [facility] [address] Performing Lab: [facility] [address] [facility] BASIC METABOLI C PANEL+MG GLUCOSE [MASS/VOLU ME] IN SERUM OR PLASMA 88 mg/dL 70 - 100 05/28 Specimen Type: PLASMA Comment: Elevated triglycerid e result from a non-fasting specimen should be interpreted with caution. A fasting panel is recommended for accurate triglycerid es when trigs are >200 from a non-fasting specimen. Ordering Provider: Israel WIGGINS Report Released Date/Time: May 29, 2023 02:58 PM Reporting Lab: [facility] [address] Performing Lab: [facility] [address] [facility] BASIC METABOLI C PANEL+MG SODIUM [MOLES/VOL UME] IN SERUM OR PLASMA 134 mmol/L 136 - 145 05/28 L Specimen Type: PLASMA Comment: Elevated triglycerid e result from a non-fasting specimen should be interpreted with caution. A fasting panel is recommended for accurate triglycerid es when trigs are >200 from a non-fasting specimen. Ordering Provider: Israel WIGGINS Report Released Date/Time: May 29, 2023 02:58 PM Reporting Lab: [facility] [phone] Performing Lab: [facility] [address] [facility] BASIC METABOLI C PANEL+MG POTASSIUM [MOLES/VOL UME] IN SERUM OR PLASMA 4.1 mmol/L 3.5 - 5.1 05/28 Specimen Type: PLASMA Comment: Elevated triglycerid e result from a non-fasting specimen should be interpreted with caution. A fasting panel is recommended for accurate triglycerid es when trigs are >200 from a non-fasting specimen. Ordering Provider: Israel WIGGINS Report Released Date/Time: May 29, 2023 02:58 PM Reporting Lab: [facility] [address] Performing Lab: [facility] [address] [facility] BASIC METABOLI C PANEL+MG CHLORIDE [MOLES/VOL UME] IN SERUM OR PLASMA 105 mmol/L 98 - 107 05/28 Specimen Type: PLASMA Comment: Elevated triglycerid e result from a non-fasting specimen should be interpreted with caution. A fasting panel is recommended for accurate triglycerid es when trigs are >200 from a non-fasting specimen. Ordering Provider: Israel WIGGINS Report Released Date/Time: May 29, 2023 02:58 PM Reporting Lab: [facility] [address] Performing Lab: [facility] [address] [facility] BASIC METABOLI C PANEL+MG CARBON DIOXIDE, TOTAL [MOLES/VOL UME] IN SERUM OR PLASMA 20 mmol/L 22 - 29 05/28 L Specimen Type: PLASMA Comment: Elevated triglycerid e result from a non-fasting specimen should be interpreted with caution. A fasting panel is recommended for accurate triglycerid es when trigs are >200 from a non-fasting specimen. Ordering Provider: Israel WIGGINS Report Released Date/Time: May 29, 2023 02:58 PM Reporting Lab: [facility] [address] Performing Lab: [facility] [address] [facility] BASIC METABOLI C PANEL+MG CALCIUM [MASS/VOLU ME] IN SERUM OR PLASMA 9.8 mg/dL 8.4 - 10.2 05/28 Specimen Type: PLASMA Comment: Elevated triglycerid e result from a non-fasting specimen should be interpreted with caution. A fasting panel is recommended for accurate triglycerid es when trigs are >200 from a non-fasting specimen. Ordering Provider: Israel WIGGINS Report Released Date/Time: May 29, 2023 02:58 PM Reporting Lab: [facility] [address] Performing Lab: [facility] [address] [facility] BASIC METABOLI C PANEL+MG MAGNESIUM [MASS/VOLU ME] IN SERUM OR PLASMA 1.9 mg/dL 1.6 - 2.6 05/28 Specimen Type: PLASMA Comment: Elevated triglycerid e result from a non-fasting specimen should be interpreted with caution. A fasting panel is recommended for accurate triglycerid es when trigs are >200 from a non-fasting specimen. Ordering Provider: Israel WIGGINS Report Released Date/Time: May 29, 2023 02:58 PM Reporting Lab: [facility] [address] Performing Lab: [facility] [address] [facility] BASIC METABOLI C PANEL+MG ANION GAP IN SERUM OR PLASMA 9 mmol/L 5 - 15 05/28 Specimen Type: PLASMA Comment: Elevated triglycerid e result from a non-fasting specimen should be interpreted with caution. A fasting panel is recommended for accurate triglycerid es when trigs are >200 from a non-fasting specimen. Ordering Provider: Israel WIGGINS Report Released Date/Time: May 29, 2023 02:58 PM Reporting Lab: [facility] [address] Performing Lab: [facility] [address] [facility] BASIC METABOLI C PANEL+MG GLOMERULAR FILTRATION RATE/1.73 SQ M.PREDICTE D [VOLUME RATE/AREA] IN SERUM, PLASMA OR BLOOD BY CREATININE -BASED FORMULA (CKD-EPI 2020) >90 60 05/28 Specimen Type: PLASMA Comment: Elevated triglycerid e result from a non-fasting specimen should be interpreted with caution. A fasting panel is recommended for accurate triglycerid es when trigs are >200 from a non-fasting specimen. Ordering Provider: Israel WIGGINS Report Released Date/Time: May 29, 2023 02:58 PM Reporting Lab: [facility] [address] Performing Lab: [facility] [address] [facility] CBC & DIFF LEUKOCYTES [#/VOLUME] IN BLOOD BY AUTOMATED COUNT 8.59 10*3/uL 4.0 - 11.0 05/28 Specimen Type: BLOOD Comment: Automated Differentia l Performed Ordering Provider: Israel WIGGINS Report Released Date/Time: May 29, 2023 02:58 PM Reporting Lab: [facility] [address] Performing Lab: [facility] [address] [facility] CBC & DIFF ERYTHROCYT ES [#/VOLUME] IN BLOOD BY AUTOMATED COUNT 5.68 10*6/uL 4.6 - 6.2 05/28 Specimen Type: BLOOD Comment: Automated Differentia l Performed Ordering Provider: Israel WIGGINS Report Released Date/Time: May 29, 2023 02:58 PM Reporting Lab: [facility] [address] Performing Lab: [facility] [address] [facility] CBC & DIFF HEMOGLOBIN [MASS/VOLU ME] IN BLOOD 16.5 g/dL 13.5 - 17.9 05/28 Specimen Type: BLOOD Comment: Automated Differentia l Performed Ordering Provider: Israel WIGGINS Report Released Date/Time: May 29, 2023 02:58 PM Reporting Lab: [facility] [address] Performing Lab: [facility] [address] [facility] CBC & DIFF HEMATOCRIT [VOLUME FRACTION] OF BLOOD BY AUTOMATED COUNT 47.7 41 - 54 05/28 Specimen Type: BLOOD Comment: Automated Differentia l Performed Ordering Provider: Israel WIGGINS Report Released Date/Time: May 29, 2023 02:58 PM Reporting Lab: [facility] [address] Performing Lab: [facility] [address] [facility] CBC & DIFF MCV [ENTITIC VOLUME] BY AUTOMATED COUNT 84.0 fL 80 - 100 05/28 Specimen Type: BLOOD Comment: Automated Differentia l Performed Ordering Provider: Israel WIGGINS Report Released Date/Time: May 29, 2023 02:58 PM Reporting Lab: [facility] [address] Performing Lab: [facility] [address] [facility] CBC & DIFF MCH [ENTITIC MASS] BY AUTOMATED COUNT 29.0 pg 27 - 33 05/28 Specimen Type: BLOOD Comment: Automated Differentia l Performed Ordering Provider: Israel WIGGINS Report Released Date/Time: May 29, 2023 02:58 PM Reporting Lab: [facility] [address] Performing Lab: [facility] [address] [facility] CBC & DIFF MCHC [MASS/VOLU ME] BY AUTOMATED COUNT 34.6 g/dL 32.0 - 37.5 05/28 Specimen Type: BLOOD Comment: Automated Differentia l Performed Ordering Provider: Israel WIGGINS Report Released Date/Time: May 29, 2023 02:58 PM Reporting Lab: [facility] [address] Performing Lab: [facility] [address] [facility] CBC & DIFF PLATELETS [#/VOLUME] IN BLOOD BY AUTOMATED COUNT 451 10*3/uL 150 - 400 05/28 H Specimen Type: BLOOD Comment: Automated Differentia l Performed Ordering Provider: Israel WIGGINS Report Released Date/Time: May 29, 2023 02:58 PM Reporting Lab: [facility] [phone] Performing Lab: [facility] [address] [facility] CBC & DIFF PLATELET MEAN VOLUME [ENTITIC VOLUME] IN BLOOD BY AUTOMATED COUNT 8.9 fL 7.4 - 10.4 05/28 Specimen Type: BLOOD Comment: Automated Differentia l Performed Ordering Provider: Israel WIGGINS Report Released Date/Time: May 29, 2023 02:58 PM Reporting Lab: [facility] [address] Performing Lab: [facility] [address] [facility] CBC & DIFF NEUTROPHIL S/100 LEUKOCYTES IN BLOOD BY MANUAL COUNT 54.1 40.0 - 80.0 05/28 Specimen Type: BLOOD Comment: Automated Differentia l Performed Ordering Provider: Israel WIGGINS Report Released Date/Time: May 29, 2023 02:58 PM Reporting Lab: [facility] [address] Performing Lab: [facility] [address] [facility] CBC & DIFF LYMPHOCYTE S/100 LEUKOCYTES IN BLOOD BY MANUAL COUNT 35.0 15.0 - 45.0 05/28 Specimen Type: BLOOD Comment: Automated Differentia l Performed Ordering Provider: Israel WIGGINS Report Released Date/Time: May 29, 2023 02:58 PM Reporting Lab: [facility] [address] Performing Lab: [facility] [address] [facility] CBC & DIFF MONOCYTES/ 100 LEUKOCYTES IN BLOOD BY AUTOMATED COUNT 9.0 2.0 - 12.0 05/28 Specimen Type: BLOOD Comment: Automated Differentia l Performed Ordering Provider: Israel WIGGINS Report Released Date/Time: May 29, 2023 02:58 PM Reporting Lab: [facility] [address] Performing Lab: [facility] [address] [facility] CBC & DIFF EOSINOPHIL S/100 LEUKOCYTES IN BLOOD BY AUTOMATED COUNT 0.8 0.0 - 6.0 05/28 Specimen Type: BLOOD Comment: Automated Differentia l Performed Ordering Provider: Israel WIGGINS Report Released Date/Time: May 29, 2023 02:58 PM Reporting Lab: [facility] [address] Performing Lab: [facility] [address] [facility] CBC & DIFF BASOPHILS/ 100 LEUKOCYTES IN BLOOD BY MANUAL COUNT 0.5 0.0 - 2.0 05/28 Specimen Type: BLOOD Comment: Automated Differentia l Performed Ordering Provider: Israel WIGGINS Report Released Date/Time: May 29, 2023 02:58 PM Reporting Lab: [facility] [address] Performing Lab: [facility] [address] [facility] CBC & DIFF ERYTHROCYT E DISTRIBUTI ON WIDTH [RATIO] BY AUTOMATED COUNT 13.2 11.5 - 14.5 05/28 Specimen Type: BLOOD Comment: Automated Differentia l Performed Ordering Provider: Israel WIGGINS Report Released Date/Time: May 29, 2023 02:58 PM Reporting Lab: [facility] [address] Performing Lab: [facility] [address] [facility] CBC & DIFF LYMPHOCYTE S [#/VOLUME] IN BLOOD BY AUTOMATED COUNT 3.01 10*3/uL 1.0 - 4.0 05/28 Specimen Type: BLOOD Comment: Automated Differentia l Performed Ordering Provider: Israel WIGGINS Report Released Date/Time: May 29, 2023 02:58 PM Reporting Lab: [facility] [address] Performing Lab: [facility] [address] [facility] CBC & DIFF MONOCYTES [#/VOLUME] IN BLOOD BY AUTOMATED COUNT 0.77 10*3/uL 0.1 - 1.0 05/28 Specimen Type: BLOOD Comment: Automated Differentia l Performed Ordering Provider: Israel WIGGINS Report Released Date/Time: May 29, 2023 02:58 PM Reporting Lab: [facility] [address] Performing Lab: [facility] [address] [facility] CBC & DIFF NEUTROPHIL S [#/VOLUME] IN BLOOD BY AUTOMATED COUNT 4.65 10*3/uL 2.0 - 7.7 05/28 Specimen Type: BLOOD Comment: Automated Differentia l Performed Ordering Provider: Israel WIGGINS Report Released Date/Time: May 29, 2023 02:58 PM Reporting Lab: [facility] [address] Performing Lab: [facility] [address] [facility] CBC & DIFF EOSINOPHIL S [#/VOLUME] IN BLOOD BY AUTOMATED COUNT 0.07 10*3/uL 0 - 0.5 05/28 Specimen Type: BLOOD Comment: Automated Differentia l Performed Ordering Provider: Israel WIGGINS Report Released Date/Time: May 29, 2023 02:58 PM Reporting Lab: [facility] [address] Performing Lab: [facility] [address] [facility] CBC & DIFF BASOPHILS [#/VOLUME] IN BLOOD BY AUTOMATED COUNT 0.04 10*3/uL 0 - 0.2 05/28 Specimen Type: BLOOD Comment: Automated Differentia l Performed Ordering Provider: Israel WIGGINS Report Released Date/Time: May 29, 2023 02:58 PM Reporting Lab: [facility] [address] Performing Lab: [facility] [address] [facility] CBC & DIFF IG(META,MY CHLOÉ,PRO) 0.6 05/28 Specimen Type: BLOOD Comment: Automated Differentia l Performed Ordering Provider: Israel WIGGINS Report Released Date/Time: May 29, 2023 02:58 PM Reporting Lab: [facility] [address] Performing Lab: [facility] [address] [facility] CBC & DIFF IMMATURE GRANULOCYT ES [PRESENCE] IN BLOOD BY AUTOMATED COUNT 0.05 10*3/uL 0 - 0.1 05/28 Specimen Type: BLOOD Comment: Automated Differentia l Performed Ordering Provider: Israel WIGGINS Report Released Date/Time: May 29, 2023 02:58 PM Reporting Lab: [facility] [address] Performing Lab: [facility] [address] [facility] SED RATE ERYTHROCYT E SEDIMENTAT ION RATE 14 mm/h 5 - 15 11/16 Specimen Type: BLOOD No comment entered. Ordering Provider: Israel WIGGINS Report Released Date/Time: Nov 14, 2022 04:19 PM Reporting Lab: [facility] [address] Performing Lab: [facility] [address] [facility] RHEUMATO ID FACTOR RHEUMATOID FACTOR [UNITS/VOL UME] IN SERUM OR PLASMA <13[IU]/ mL <29 - 29 11/16 Specimen Type: SERUM No comment entered. Ordering Provider: Israel WIGGINS Report Released Date/Time: Nov 14, 2022 04:19 PM Reporting Lab: [facility] [address] Performing Lab: [facility] [address] [facility] C-REACTI VE PROTEIN C REACTIVE PROTEIN [MASS/VOLU ME] IN SERUM OR PLASMA BY HIGH SENSITIVIT Y METHOD 3.24 mg/L <5.00 - 5.00 11/16 Specimen Type: PLASMA No comment entered. Ordering Provider: Israel WIGGINS Report Released Date/Time: Nov 14, 2022 04:19 PM Reporting Lab: [facility] [address] Performing Lab: [facility] [address] [facility] CBC & DIFF LEUKOCYTES [#/VOLUME] IN BLOOD BY AUTOMATED COUNT 8.54 10*3/uL 4.0 - 11.0 11/16 Specimen Type: BLOOD Comment: Automated Differentia l Performed Ordering Provider: Israel WIGGINS Report Released Date/Time: Nov 14, 2022 04:19 PM Reporting Lab: [facility] [address] Performing Lab: [facility] [address] [facility] CBC & DIFF ERYTHROCYT ES [#/VOLUME] IN BLOOD BY AUTOMATED COUNT 5.21 10*6/uL 4.6 - 6.2 11/16 Specimen Type: BLOOD Comment: Automated Differentia l Performed Ordering Provider: Israel WIGGINS Report Released Date/Time: Nov 14, 2022 04:19 PM Reporting Lab: [facility] [address] Performing Lab: [facility] [address] [facility] CBC & DIFF HEMOGLOBIN [MASS/VOLU ME] IN BLOOD 15.4 g/dL 13.5 - 17.9 11/16 Specimen Type: BLOOD Comment: Automated Differentia l Performed Ordering Provider: Israel WIGGINS Report Released Date/Time: Nov 14, 2022 04:19 PM Reporting Lab: [facility] [address] Performing Lab: [facility] [address] [facility] CBC & DIFF HEMATOCRIT [VOLUME FRACTION] OF BLOOD BY AUTOMATED COUNT 44.5 41 - 54 11/16 Specimen Type: BLOOD Comment: Automated Differentia l Performed Ordering Provider: Israel WIGGINS Report Released Date/Time: Nov 14, 2022 04:19 PM Reporting Lab: [facility] [address] Performing Lab: [facility] [address] [facility] CBC & DIFF MCV [ENTITIC VOLUME] BY AUTOMATED COUNT 85.4 fL 80 - 100 11/16 Specimen Type: BLOOD Comment: Automated Differentia l Performed Ordering Provider: Israel WIGGINS Report Released Date/Time: Nov 14, 2022 04:19 PM Reporting Lab: [facility] [address] Performing Lab: [facility] [address] [facility] CBC & DIFF MCH [ENTITIC MASS] BY AUTOMATED COUNT 29.6 pg 27 - 33 11/16 Specimen Type: BLOOD Comment: Automated Differentia l Performed Ordering Provider: Israel WIGGINS Report Released Date/Time: Nov 14, 2022 04:19 PM Reporting Lab: [facility] [address] Performing Lab: [facility] [address] [facility] CBC & DIFF MCHC [MASS/VOLU ME] BY AUTOMATED COUNT 34.6 g/dL 32.0 - 37.5 11/16 Specimen Type: BLOOD Comment: Automated Differentia l Performed Ordering Provider: Israel WIGGINS Report Released Date/Time: Nov 14, 2022 04:19 PM Reporting Lab: [facility] [address] Performing Lab: [facility] [address] [facility] CBC & DIFF PLATELETS [#/VOLUME] IN BLOOD BY AUTOMATED COUNT 366 10*3/uL 150 - 400 11/16 Specimen Type: BLOOD Comment: Automated Differentia l Performed Ordering Provider: Israel WIGGINS Report Released Date/Time: Nov 14, 2022 04:19 PM Reporting Lab: [facility] [address] Performing Lab: [facility] [address] [facility] CBC & DIFF PLATELET MEAN VOLUME [ENTITIC VOLUME] IN BLOOD BY AUTOMATED COUNT 8.7 fL 7.4 - 10.4 11/16 Specimen Type: BLOOD Comment: Automated Differentia l Performed Ordering Provider: Israel WIGGINS Report Released Date/Time: Nov 14, 2022 04:19 PM Reporting Lab: [facility] [address] Performing Lab: [facility] [address] [facility] CBC & DIFF NEUTROPHIL S/100 LEUKOCYTES IN BLOOD BY MANUAL COUNT 57.0 40.0 - 80.0 11/16 Specimen Type: BLOOD Comment: Automated Differentia l Performed Ordering Provider: Israel WIGGINS Report Released Date/Time: Nov 14, 2022 04:19 PM Reporting Lab: [facility] [address] Performing Lab: [facility] [address] [facility] CBC & DIFF LYMPHOCYTE S/100 LEUKOCYTES IN BLOOD BY MANUAL COUNT 30.9 15.0 - 45.0 11/16 Specimen Type: BLOOD Comment: Automated Differentia l Performed Ordering Provider: Israel WIGGINS Report Released Date/Time: Nov 14, 2022 04:19 PM Reporting Lab: [facility] [address] Performing Lab: [facility] [address] [facility] CBC & DIFF MONOCYTES/ 100 LEUKOCYTES IN BLOOD BY AUTOMATED COUNT 10.0 2.0 - 12.0 11/16 Specimen Type: BLOOD Comment: Automated Differentia l Performed Ordering Provider: Israel WIGGINS Report Released Date/Time: Nov 14, 2022 04:19 PM Reporting Lab: [facility] [address] Performing Lab: [facility] [address] [facility] CBC & DIFF EOSINOPHIL S/100 LEUKOCYTES IN BLOOD BY AUTOMATED COUNT 1.4 0.0 - 6.0 11/16 Specimen Type: BLOOD Comment: Automated Differentia l Performed Ordering Provider: Israel WIGGINS Report Released Date/Time: Nov 14, 2022 04:19 PM Reporting Lab: [facility] [address] Performing Lab: [facility] [address] [facility] CBC & DIFF BASOPHILS/ 100 LEUKOCYTES IN BLOOD BY MANUAL COUNT 0.2 0.0 - 2.0 11/16 Specimen Type: BLOOD Comment: Automated Differentia l Performed Ordering Provider: Israel WIGGINS Report Released Date/Time: Nov 14, 2022 04:19 PM Reporting Lab: [facility] [address] Performing Lab: [facility] [address] [facility] CBC & DIFF ERYTHROCYT E DISTRIBUTI ON WIDTH [RATIO] BY AUTOMATED COUNT 14.4 11.5 - 14.5 11/16 Specimen Type: BLOOD Comment: Automated Differentia l Performed Ordering Provider: Israel WIGGINS Report Released Date/Time: Nov 14, 2022 04:19 PM Reporting Lab: [facility] [address] Performing Lab: [facility] [address] [facility] CBC & DIFF LYMPHOCYTE S [#/VOLUME] IN BLOOD BY AUTOMATED COUNT 2.64 10*3/uL 1.0 - 4.0 11/16 Specimen Type: BLOOD Comment: Automated Differentia l Performed Ordering Provider: Israel WIGGINS Report Released Date/Time: Nov 14, 2022 04:19 PM Reporting Lab: [facility] [address] Performing Lab: [facility] [address] [facility] CBC & DIFF MONOCYTES [#/VOLUME] IN BLOOD BY AUTOMATED COUNT 0.85 10*3/uL 0.1 - 1.0 11/16 Specimen Type: BLOOD Comment: Automated Differentia l Performed Ordering Provider: Israel WIGGINS Report Released Date/Time: Nov 14, 2022 04:19 PM Reporting Lab: [facility] [address] Performing Lab: [facility] [address] [facility] CBC & DIFF NEUTROPHIL S [#/VOLUME] IN BLOOD BY AUTOMATED COUNT 4.87 10*3/uL 2.0 - 7.7 11/16 Specimen Type: BLOOD Comment: Automated Differentia l Performed Ordering Provider: Israel WIGGINS Report Released Date/Time: Nov 14, 2022 04:19 PM Reporting Lab: [facility] [address] Performing Lab: [facility] [address] [facility] CBC & DIFF EOSINOPHIL S [#/VOLUME] IN BLOOD BY AUTOMATED COUNT 0.12 10*3/uL 0 - 0.5 11/16 Specimen Type: BLOOD Comment: Automated Differentia l Performed Ordering Provider: Israel WIGGINS Report Released Date/Time: Nov 14, 2022 04:19 PM Reporting Lab: [facility] [address] Performing Lab: [facility] [address] [facility] CBC & DIFF BASOPHILS [#/VOLUME] IN BLOOD BY AUTOMATED COUNT 0.02 10*3/uL 0 - 0.2 11/16 Specimen Type: BLOOD Comment: Automated Differentia l Performed Ordering Provider: Israel WIGGINS Report Released Date/Time: Nov 14, 2022 04:19 PM Reporting Lab: [facility] [address] Performing Lab: [facility] [address] [facility] CBC & DIFF IG(META,MY CHLOÉ,PRO) 0.5 11/16 Specimen Type: BLOOD Comment: Automated Differentia l Performed Ordering Provider: Israel WIGGINS Report Released Date/Time: Nov 14, 2022 04:19 PM Reporting Lab: [facility] [address] Performing Lab: [facility] [address] [facility] CBC & DIFF IMMATURE GRANULOCYT ES [PRESENCE] IN BLOOD BY AUTOMATED COUNT 0.04 10*3/uL 0 - 0.1 11/16 Specimen Type: BLOOD Comment: Automated Differentia l Performed Ordering Provider: Israel WIGGINS Report Released Date/Time: Nov 14, 2022 04:19 PM Reporting Lab: [facility] [address] Performing Lab: [facility] [address] [facility] Vital Signs Combined list of inpatient and outpatient Vital Signs from Department of Defense and Veterans Affairs, ranging from 12 months to all on record, depending upon the facility. Vital Sign Value Date Comments Source Encounters Combined list of: 1) Encounters from Department of Veterans Affairs facilities going back up to [facility] 18 months. 2) Encounters from the Department of Defense facilities going back up to 280 months. Location Location Details Encounter Type Encounter Number Reason For Visit Attending Provider ADM Date DC Date Status Disposition Source [place] [facility] Outpatient Encounter [id number] 03/28 [place] [facility] [place] [facility] Outpatient Encounter [id number] 04/03 [place] [facility] [place] [facility] Outpatient Encounter [id number] 04[facility]03 [place] [facility]/P EST LOW 20-29 MIN [id number] Diagnos is: ICD-10- CM F33.1 Major depress naman disorde r, recurre nt, moderat e
NALLUSAMY, VASUMATHI 05/16 [facility] [place] [facility] Outpatient Encounter [id number] 05[facility]23 [place] [facility] PT 45 MINUTES [id number] Diagnos is: ICD-10- CM F43.12 Post-tr aumatic stress disorde r, chronic
EBER VEGAS LUIS ARMANDO H 05/23 [facility] Out[facility] Encounter [id number] 05/25 [facility] Outpatient Encounter [id number] 05/29 [facility] Outpatient Encounter [id number] 05/30 [facility] [place] [facility] Outpatient Encounter [id number] ESTELITA FLORES 06[facility]15 [place] [facility] [place] [facility] Outpatient Encounter [id number] 06/25 [place] [facility] PRO PHONE CALL 21-30 MIN [id number] Diagnos is: ICD-10- CM F17.210 Nicotin e depende nce, cigaret adriana, uncompl icated< br/> SOTEROIRE SUSANNACHARLI Kruse 07[facility] PRO PHONE CALL 11-20 MIN [id number] Diagnos is: ICD-10- CM F17.210 Nicotin e depende nce, cigaret adriana, uncompl icated< br/> SOTEROIRE SMILEY Uriah 08/17 [facility] Outpatient Encounter [id number] 09/17 [facility] Outpatient Encounter [id number] 11/06 [facility] OFFICE O/P EST LOW 20-29 MIN [id number] Diagnos is: ICD-10- CM L98.9 Disorde r of the skin and subcuta neous tissue, unspeci fied
NALLUSAMY, VASUMATHI 11/07 [facility] QNHP OL DIG ASSMT&MGMT 11-20 [id number] Diagnos is: ICD-10- CM F10.10 Alcohol abuse, uncompl icated< br/> MAXIME NG W 11/08 [facility] Outpatient Encounter [id number] 11/12 [facility] Outpatient Encounter [id number] NALLUSAMY, VASUMATHI 11/13 [facility] OFF/OP EST MAY X REQ PHY/QHP [id number] Diagnos is: ICD-10- CM R22.2 Localiz ed swellin g, mass and lump, trunk<b r/> WALESKA ORTIZ 11/22 [place] [facility] EMERGENCY DEPT VISIT [facility] [id number] Diagnos is: ICD-10- CM L72.3 Sebaceo us cyst
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
MARTHA PLATA 12/20 [place] [facility] [place] [facility] Outpatient Encounter [id number] 12/20 [place] [facility] [place] [facility] EXC NECK LES SC 3 CM/> [id number] Diagnos is: ICD-10- CM L72.3 Sebaceo us cyst
Chilo KRISHNA 01/07 [place] [facility] [place] [facility] Outpatient Encounter [id number] AMARI PINZON 01/10 [place] [facility] [place] [facility] Outpatient Encounter [id number] 01/19 [place] [facility] [place] [facility] Outpatient Encounter [id number] 01/22 [facility] [place] [facility] OFFICE O/P EST SF 10-19 MIN [id number] Diagnos is: ICD-10- CM L72.3 Sebaceo us cyst
Chilo KRISHNA TEVEN Crow 01/28 [place] [facility] [place] [facility] Outpatient Encounter [id number] 03/25 [place] [facility] [place] [facility] Outpatient Encounter [id number] 03/28 [place] [facility] PRO PHONE CALL 11-20 MIN [id number] Diagnos is: ICD-10- CM K59.00 Constip ation, unspeci fied
WALESKA ORTIZ 03/29 [facility] Outpatient Encounter [id number] WALESKA ORTIZ 03/29 [place] [facility] Outpatient Encounter [id number] WALESKA ORTIZ 03/29 [place] [facility] Outpatient Encounter [id number] 05/28 [place] [facility] Outpatient Encounter [id number] Diagnos is: ICD-10- CM Z00.01 Encount er for general adult medical exam w abnorma l finding s
[facility] [place] [facility] OFF[facility] O/P EST MOD 30 MIN [id number] Diagnos is: ICD-10- CM J01.90 Acute sinusit is, unspeci fied
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<br/ > WALESKA ORTIZ 06/04 [facility] Outpatient Encounter [id number] KATHLEENWALESKA OLSON Ariel Maria 06/26 [place] [facility] [facility] [place] [facility] Outpatient Encounter [id number] WALESKA ORTIZ Crow 06/26 [place] [facility] [place] [facility] Outpatient Encounter [id number] 07/31 [place] [facility] Social History Combined list of available smoking, tobacco, and other social history from Department of Defense and Veterans [facility] facilities. Social History Type Response Date Comment Sourc e Tobacco smoking status [facility] PA-TOBACCO FORMER USER 05/29/2023 [facility] of [facility] of [facility]16[facility]20[facility] History of tobacco use PA-TOBACCO USER E VERY DAY 01/11/2021 [facility]2019 [facility] History of tobacco use CURRENT TOBACCO USER 04/09/2017 [facility] History of tobacco use CURRENT TOBACCO USER 08/02/2015 [facility] History of tobacco use CURRENT TOBACCO USER 10/15/2013 [facility] History of tobacco use CURRENT TOBACCO USER 12/10/2012 [facility] History of tobacco use CURRENT TOBACCO USER 02/14/2012 [facility] History of tobacco use CURRENT TOBACCO USER 09/25/2010 [facility] History of tobacco use PATIENT IS TOBACCO USER 01/05/2008 [facility] History of tobacco use CURRENT TOBACCO USER 04/22/2007 [facility] History of tobacco use CURRENT TOBACCO USER 06/25/2006 [facility] This section is an empty social history section. DoD Plan of Care List of future care activities from Department of Veterans Affairs facilities. Additional future care activities may be listed in the Assessment and Plan section. Date/Time Care Activity Care Activity Detail Facili ty 11/28/2023 AMBULATORY - SURGERY AMBULATORY - SURGERY [facility] 07/30/2023 Consult Order COLONOSCOPY DIAG NOSTIC OUTPT Cons [employer] [facility] Advance Directives List of completed, amended, or rescinded Advance Directives on record at Department of Veterans Affairs facilities. An actual copy of the Directive is not included. Date Advance Directive Provider Source 01/29/2017 ADVANCE DIRECTIVE DISCUSSION ALEX KURTZ [facility]
--- OUTSIDE RECORDS SUMMARY | 2023-08-01 12:23 | XMS_ITS ---
Author Organization [facility] Address [address] [place] [address] Care Team Providers Care Recreational Assistant Name Role Phone Unavailable Unavailable Unavailable Surgery Details Not on file Complications Check Surgery Details section. Procedure Estimated Blood Loss Check Surgery Details section. Procedure Findings Check Surgery Details section. Procedure Specimens Taken Check Surgery Details section.
--- OUTSIDE RECORDS SUMMARY | 2023-08-01 12:23 | XMS_ITS | Encounter Summary ---
Author Name [facility] Organization [facility] Address [address] [facility], [place] [address] Care Team Providers Care Spanner Operator Name Role Phone KRISTY WIGGINS Primary [...] (PPO) FEP BASIC PLUS ONE 2023 113 [id number] Lanre CASTANEDA PATIENT [place] FEP PREFERRED PROVIDER ORGANIZAT ION (PPO) FEP BASIC PLUS ONE 2023 113 [id number] Lanre CASTANEDA PATIENT [employer] FEP RX PRESCRIPT ION FEPRX Feb 17, 2017 [id number] [phone] Lanre CASTANEDA PATIENT Selected Encounter This section includes the information on record at [facility] for the Encounter. Date/Time Encounter Type Encounter Description Reason Provider Source June 27, 2023 12:26 PM Outpatient Encounter EVENT (HISTORICAL) CHELY CANNON IHE Encounter Template Text not used by [facility] Plan of Treatment: Future Appointments (+ 6 months) and Future Tests (+/- 45 days) The Plan of Treatment section includes future care activities for the patient from all [place] treatmentfacilities. This section includes future appointments and future orders which are active, pending or scheduled. Future Appointments This section includes appointments that were scheduled to occur 6 months from the date of the Encounter, up to a maximum of 20 appointments. The data comes from all [place] treatment facilities. Appointment Date/Time Appointment Type Appointme nt Facility Name Nov 28, 2023 02:40 PM AMBULATORY - SURGERY [facility] Active, Pending, and Scheduled Orders This section includes a listing of several types of active, pending, and scheduled orders, including clinic medications orders, diagnostic test orders, procedure orders and consult orders; where the start date of the order is 45 days before the date of the Encounter or 45 days after the date of theEncounter. The data comes from all [facility]. Test Date/Time Test Type Test Details Facility Name May 29, 2023 03:10 PM Consult Order ENT OUTPT Cons Con [facility] Jul 30, 2023 11:49 AM Consult Order COLONOSCOP Y DIAGNOSTIC OUTPT Cons Roller [facility] Lab Results: +/- 30 days of the encounter This section includes the Chemistry and Hematology Lab Results on record with [facility] for the patient. Radiology Reports and Pathology Reports are provided separately, in subsequent sections. Lab Results This section contains the Chemistry/Hematology Results that were resulted 30 days before or 30 daysafter the date of the Encounter. Date/Time Source Result Type Result - Unit Interpretation Reference Range Comment May 29, 2023 03:25 PM [facility] HEMOGLOBIN A1C Specimen Type: BLOOD Comment: [...] May 29, 2023 02:58 PM Reporting Lab: [facility] [id number] Performing Lab: [facility] [id number] HEMOGLOBIN A1C 5.2 4.0-6.0 May 29, 2023 03:25 PM CHERELLE IRV[facility] LIPID PANEL,NON-FASTING Specimen Type: PLASMA Comment: Elevated triglyceride result from a non-fasting specimen should be interpreted with caution. A fasting panel is recommended for accurate triglycerides when trigs are >200 from a non-fasting specimen. Ordering Provider: ANA WIGGINS Report Released Date/Time: May 29, 2023 02:58 PM Reporting Lab: [facility] [id number] Performing Lab: [facility] [id number] CHOLESTEROL 268 mg/dL H <199 .HDL 31 mg/dL L >40 LDL CALCULATION 185 mg/dL H <99 VLDL CALCULATION 52 mg/dL H <29 NON HDL CHOLESTEROL 237 mg/dL H <129 TRIG(NON FASTING) 258 mg/dL H <149 May 29, 2023 03:25 PM CHERELLE IRVING BASIC METABOLIC PANEL+MG Specimen Type: PLASMA Comment: Elevated triglyceride result from a non-fasting specimen should be interpreted with caution. A fasting panel is recommended for accurate triglycerides when trigs are >200 from a non-fasting specimen. Ordering Provider: ANA WIGGINS Report Released Date/Time: May 29, 2023 02:58 PM Reporting Lab: [facility] [id number] Performing Lab: [facility] [id number] CREATININE 0.8 mg/dL 0.7-1.2 UREA NITROGEN 12 [...] May 29, 2023 02:58 PM Reporting Lab: [facility] [id number] Performing Lab: [facility] [id number] TSH 1.66 u[IU]/mL 0.35-4.94 May 29, 2023 03:25 PM [facility] CBC & DIFF Specimen Type: BLOOD Comment: Automated Differential Performed Ordering Provider: ANA WIGGINS Report Released Date/Time: May 29, 2023 02:58 PM Reporting Lab: [facility] [phone] Performing Lab: [facility] [phone] WBC 8.59 10*3/uL 4.0-11.0 RBC 5.68 10*6/uL [...] and tobacco- related health factors from the [facility] facility where the Encounter took place. Current Smoking Status This section includes the most current smoking, or tobacco-related health factor, from the [place] facility where the Encounter took place. Date/Time Current Smoking Status Comment Fede amaya Apr 09, 2017 08:20 AM [address] TOBACCO USER [facility] Tobacco Use History This section includes a history of the smoking, or tobacco-related health factors, that were collected on or before the date of the Encounter. The data comes from the [place] facility where the Encounter took place. Date/Time Smoking Status/Tobacco Use Comment F acility Aug 02, 2015 03:27 [address]ACCO US[facility] Oct 15, 2013 03:00 [address]ACCO [facility] Dec 10, 2012 12:12 PM [address]RENT TOBACCO US[facility] Feb 14, 2012 01:04 [address]AC[address] [facility] Sep 25, 2010 01:00 [address]ACCO [facility] [facility] Jan 05, 2008 09:13 AM PATIENT IS TOBACCO USER [facility] Apr 22, 2007 03:08 PM [address]BACCO US[facility] June 25, 2006 01:48 [address]BACCO US[facility] Advance Directives: All historical and current Section Date Range: From patient's date of to the date document was created. This section includes ALL of a patient's completed or amended [place] Advance and Rescinded Directives. The entries below indicate that a directive exists for the patient, but an actual copy is not included with this document. The data comes from all [facility]. Date Advance Directives Provider Source Jan 29, 2017 ADVANCE DIRECTIVE DISCUSSION ALEX KURTZ [facility] Radiology Reports: +/- 30 days of the [...] the Encounter. The data comes from all [place] treatment facilities. Date/Time Radiology Report Provider Source June 25, 2023 02:57 PM CHEST 2 VIEWS PA A ND LAT: SALEEM CASTANEDA [id number] -[id number] M Exm Date: JUNE 25, 2023@14:57 Req Phys: KRISTY WIGGINS Pat Loc: K PACT TELEPHONE HEARTS RN ( Img Loc: [facility] Service: [place] [address] (Case [id number] COMPLETE) CHEST 2 VIEWS PA AND LAT (RAD Detailed) CPT:91162 Reason for Study: cough - follow up pneumonia Clinical History: [place] IS NOT under investigation for COVID-19 or is COVID-19 negative follow up pneumonia Responsible provider name and phone number to notify for critical findings if other than user placing the order and pager listed below: User placing orders pager: Tu [phone] LAST CREATININE 0.8 (05/29/23) Report Status: Verified Date Reported: JUNE 25, 2023 Date Verified: JUNE 25, 2023 Multi Slide Machine Tender E-Sig:/ES/HUMBERTO CR MD Report: X-RAY EXAM OF chest, PA and lateral INDICATION: Reason for Study: cough - follow up pneumonia [place] IS NOT under investigation for COVID-19 or is COVID-19 negative follow up pneumonia Responsible provider name and phone number to notify for critical findings if other than user placing the order and pager listed below: User placing orders pager: Tu [phone] LAST CREATININE 0.8 (05/29/23) COMPARISON: 05/29/2023 Impression: [...] Primary Interpreting Staff: HUMBERTO CR MD, RADIOLOGIST (Multi Slide Machine Tender) /HUMBERTO YANCEY [facility] May 29, 2023 03:22 PM CHEST 2 VIEWS PA A ND LAT: SALEEM CASTANEDA [id number] -[id number] M Exm Date: MAY 29, 2023@15:22 Req Phys: CHELOFREDMELUMATHI Pat Loc: [facility] PA[facility]ART[facility] ARCHITECTURAL WOOD MODEL MAKER (Req'g Loc Img Loc: [facility] Service: Unknown (Case [id number] COMPLETE) CHEST 2 VIEWS PA AND LAT (RAD Detailed) CPT:48385 Reason for Study: cough Clinical History: [place] IS NOT under investigation for COVID-19 or is COVID-19 negative cough Responsible provider name and phone number to notify for critical findings if other than user placing the order and pager listed below: User placing orders pager: LAST CREATININE____ Report Status: Verified Date Reported: MAY 29, 2023 Date Verified: MAY 29, 2023 Multi Slide Machine Tender E-Sig:/NAN/GUDELIA HELMS MD Report: EXAMINATION: CHEST 2 VIEWS PA AND LAT 05/29/2023 3:22 PM INDICATION: cough Impression: Heart size and pulmonary vascularity within normal limits. No pulmonary infiltrate or pleural effusion. Subtle blunting of the left posterior costophrenic angle seen on the lateral view. No comparison chest x-ray. Primary Interpreting Staff: GUDELIA HELMS MD, RADIOLOGIST (Multi Slide Machine Tender) /GUDELIA SINGH [facility] Encounter Notes: All associated encounter notes This section contains the clinical notes associated to the Encounter. Date/Time Encounter Note(s) Provider Source June 27, 2023 12:26 PM PRIMARY CARE [facility] E MESSAGING: LOCAL TITLE: PRIMARY CARE SECURE MESSAGING STANDARD TITLE: PRIMARY CARE SECURE MESSAGING DATE OF NOTE: JUNE 27, 2023@12:26 ENTRY DATE: JUNE 27, 2023@12:26:39 AUTHOR: CHELY CANNON EXP COSIGNER: URGENCY: STATUS: COMPLETED ------Original Message - Sent: 06/27/2023 01:26 PM ET From: CHELY CANNON To: SALEEM CASTANEDA Subject: General:General Inquiry Cecile Cooley, Thank you for coming in for your follow up chest x-ray. Your provider wanted to let you know that the images show improvement from your recent bronchitis infection. Please let us know if your symptoms suddenly return. Have a nice weekend, Chely Cannon RN PACT Lining Caser /payal CANNON RN REGISTERED NURSE Signed: 06/27/2023 12:[address] [facility]
--- OUTSIDE RECORDS SUMMARY | 2023-08-01 12:23 | XMS_ITS | Referral Summary ---
Author Organization [facility] Address [address] [place] [address] Care Team Providers Care Quality Coordinator Name Role Phone None Reported, Pcp Primary Care Provider Unavail able Source Comments Patient records contain information from all sites at [facility]. For routine questions regarding patient records, call [phone] during business hours, M-F 8:00 AM - 5:00 PM Central Time. Record requests for emergency care only can be directed to [phone] at any time.[facility] Allergies No known active allergies Medications Medication Sig Dispensed Refills Start Date End Date Status psyllium husk, bulk, 100 % powder TAKE 1 TEASPOONFUL BY MOUTH EVERY MORNING MIXED IN JUICE OR WATER DIRECTED *CAN INCREASE TO 2 TEASPOONS DAILY IF NEEDED* 02/20/2021 Active fluticasone propionate (FLONASE) 50 mcg/actuation nasal spray SPRAY 1 SPRAY IN EACH NOSTRIL TWICE A DAY USE REGULARLY FOR RELIEF OF ALLERGIES/CONGESTION 02/20/2021 Active ibuprofen (ADVIL,MOTRIN) 200 mg tablet 200 mg. 06/25/2006 Active nicotine polacrilex (COMMIT) 4 mg lozenge Has not started yet 01/11/2021 Activ e naproxen sodium (ALEVE/ANAPROX) 220 mg tablet Take 220 mg by mouth as needed for pain. Active Active Problems Problem Noted Date Diagnosed Date Post Traumatic Stress Disorder Chronic Alcohol Moderate Or Severe U se Disorder (Dependence) Uncomplicated 06/01/2021 Anxiety 06/01/2021 Apnea Sleep Obstructive 06/01/2021 Gastroesophageal Reflux Disease 06/01/2021 Hyperlipidemia 06/01/2021 Major Depressive Disorder Single Episode Unspeci fied 06/01/2021 Migraine Headache 06/01/2021 Unilateral Inguinal Hernia W ithout Obstruction Or Gangrene Not Specified As Recurrent 06/01/2021 Immunizations Name Administration Dates Next Due HepB Adult 04/08/2009,02/23/1997,01/05/1997 Influenza TIV (IM) 01/24/2010,11/28/2006 Influenza, Seasonal, Injectable 01/24/2010 Influenza, Unspecified 12/10/2012,11/28/2006 Td (Adult), adsorbed 11/25/2001 Td, (Adult) Unspecified 02/11/2005,02/11/2001 Tdap 08/11/2015,04/08/2009 Social History Tobacco Use Types Packs/Day Years Used Date Smoking Tobacco: Every Day Cigarettes Tobacco Cessation:Ready to Q uit: Not Asked; Counseling Given: Not Answered Alcohol Use Standard Drinks/Week Comments Not Asked 0 (1 standard drink = 0.6 oz pure alcohol) varies from week to week based on anxiety level Nutrition Answer Date Recorded Nutrition: EVOO Fat Source Unknown 09/30 Nutrition: Servings of Fruits/Vegetables per Day Not on file 09/30/2021 Dental Answer Date Recorded Dental: Regular Dentist Unknown 10/01/19 Sex and Gender Information Value Date Recorded Sex Assigned at Not on file Gender Identity Not on file Sexual Orientation Not on file Last Filed Vital Signs Vital Sign Reading Time Taken Comments Blood Pressure 118/84 09/30/2021 3:00 PM CDT Pulse 69 09/30/2021 3:00 PM CDT Temperature 36.8 ??C (98.2 ??F) 09/30/2021 3:30 PM CD T Respiratory Rate 16 09/30/2021 3:00 PM CDT Oxygen Saturation 94% 09/30/2021 3:00 PM CDT Inhaled Oxygen Concentration - - Weight 104 kg (229 lb 4.5 oz) 09/30/2021 2:16 PM CDT Height 180.3 cm (5' 11) 09/30/2021 1:45 PM CDT Body Mass Index 31.98 09/30/2021 1:45 PM CDT Plan of Treatment Not on file Medical Devices Implanted Type Area Airport Operations Manager Device Identifier Shelf Expiration Date Model / Serial / Lot Mesh Or Patch Mesh or Patch Abdomen Procedures Procedure Name Priority Date/Time Associated Diagnosis Comments COMPREHENSIVE METABOLIC PANEL, S/P STAT 09/30/2021 1:30 PM CDT from Last 3 Months or Most Recently Relevant to Health Maintenance Results * Comprehensive Metabolic Panel (09/30/2021 1:30 PM CDT) Potassium, P 3.8 3.6 - 5.2 mmol/L 09/30/2021 1:56 PM CDT NPRG Sodium, P 137 135 - 145 mmol/L 09/30/2021 1:56 PM CDT NPRG Chloride, P 101 98 - 107 mmol/L 09/30/2021 1:56 PM CDT NPRG Bicarbonate, P 23 22 - 29 mmol/L 09/30/2021 1:56 PM CDT NPRG Anion Gap, P 13 7 - 15 09/30/2021 1:56 PM CDT NPRG BUN (Blood Urea Nitrogen), P 11 8 - 24 mg/dL 09/30/2021 1:56 PM CDT NPRG Creatinine 0.75 0.74 - 1.35 mg/dL 09/30/2021 1:56 PM CDT NPRG eGFR-Black/ >90 >=60 mL/min/BS A 09/30/2021 1:56 PM CDT NPRG Comment: ----ADDITIONAL INFORMATION---- Estimated GFR calculated using the 2009 CKD_EPI creatinine equation. eGFR Non-Black/ >90 >=60 mL/min/BS A 09/30/2021 1:56 PM CDT NPRG Comment: ----ADDITIONAL INFORMATION---- Estimated GFR calculated using the 2009 CKD_EPI creatinine equation. Calcium, Total, P 8.9 8.6 - 10.0 mg/dL 09/30/2021 1:56 PM CDT NPRG Glucose, P 95 70 - 140 mg/dL 09/30/2021 1:56 PM CDT NPRG Protein, Total, P 7.0 6.3 - 7.9 g/dL 09/30/2021 1:56 PM CDT NPRG Albumin, P 3.9 3.5 - 5.0 g/dL 09/30/2021 1:56 PM CDT NPRG Aspartate Aminotransferase (AST), P 15 8 - 48 U/L 09/30/2021 1:56 PM CDT NPRG Alkaline Phosphatase, P 98 40 - 129 U/L 09/30/2021 1:56 PM CDT NPRG Alanine Aminotransferase (ALT), P 19 7 - 55 U/L 09/30/2021 1:56 PM CDT NPRG Bilirubin, Total, P 0.4 <=1.2 mg/dL 09/30/2021 1:56 PM CDT NPRG Blood (Blood, Venous) 09/30/2021 1:30 PM CDT 09/30/2021 1:33 PM CDT Rosey Becerra M.D., M.P.H. LAB BLOOD A DD-ON [facility] [address] [place] [address], [facility] NPRG [facility] [address] [place] [address] from Last 3 Months or Most Recently Relevant to Health Maintenance Care Teams Quality Coordinator Relationship Specialty Start Date End Date None Reported, Pcp PCP - General Family Medicine 09/30/21
--- OUTSIDE RECORDS SUMMARY | 2023-08-01 12:23 | XMS_ITS | Clinical Summary ---
Author Organization [facility] Address [address] [place] [address] Care Team Providers Care Maintenance Of Way Foreman Name Role Phone None Reported, Pcp Primary Care Provider Unavail able Source Comments Patient records contain information from all sites at [facility]. For routine questions regarding patient records, call [phone] during business hours, M-F 8:00 AM - 5:00 PM Central Time. Record requests for emergency care only can be directed to [phone] at any time.[facility] Allergies No known active allergies Medications Medication [...] 09/30/2021 1:45 PM CDT Plan of Treatment Health Maintenance Due Date Last Done Comments CT Colonography 1972 Cologuard 1972 Colonoscopy 1972 Colorectal Cancer Screening 1972 Depression Monitoring (PHQ-9) 1972 FIT 1972 HIV Screening 1972 Hepatitis C Screening 1972 Lipid (Cholesterol) Screening 1972 Pneumococcal vaccine (0-64 y ears) (1 of 2 - PCV) 02/23/1978 Zoster Vaccines (1 of 2) 02/23/2022 COVID-19 Vaccine (1 - 2022-2 4 season) 2022 Influenza Vaccine (#1) 2022 3, 01/24/2010, 01/24/2010, Additional history exists Fasting Glucose for Diabetes Screening 09/30/2024 09/30/2021 DTaP,Tdap,and Td Vaccines (3 - Td or Tdap) 08/10/2025 08/11/2015, 04/08/2009, 02/11/2005, Additional history exists Hepatitis B Vaccines Completed 04/08/2009, 02/23/1997, 01/05/1997 Medical Devices Implanted Type Area Motor Scooter Repairer Device Identifier Shelf Expiration Date Model / [...] Becerra M.D., M.P.H. LAB BLOOD A DD-ON [facility] [address] [place] [address], [facility] NPRG [facility] [address] [place] [address] from Last 3 Months or Most Recently Relevant to Health Maintenance Care Teams Maintenance Of Way Foreman Relationship Specialty Start Date End Date None Reported, Pcp PCP - General Family Medicine 09/30/21
--- OUTSIDE RECORDS SUMMARY | 2023-08-01 12:24 | XMS_ITS | Encounter Summary ---
Author Name Department of Vetera Affairs Organization Department of Vetera ns Affairs Address [address], [place] [address] Care Team Providers Care Ocean Forwarder Name Role Phone KRISTY WIGGINS Primary Care [...] (PPO) FEP BASIC PLUS ONE 2023 113 [id number] [phone] Lanre CASTANEDA PATIENT [place] FEP PREFERRED PROVIDER ORGANIZAT ION (PPO) FEP BASIC PLUS ONE 2023 113 [id number] [phone] Lanre CASTANEDA PATIENT [employer] FEP RX PRESCRIPT ION FEPRX Feb 17, 2017 [id number] [phone] Lanre CASTANEDA PATIENT Selected Encounter This section includes the information on record at [place] for the Encounter. Date/Time Encounter Type Encounter Description Reason Pro vider Source Aug 01, 2023 10:22 AM Outpatient Encounter TELEPHONE TRIAGE IHE Encounter Template Text not used by [place] Plan of Treatment: Future Appointments (+ 6 months) and Future Tests (+/- 45 days) The Plan of Treatment section includes future care activities for the patient from all [place] [facility]. This section includes future appointments and future orders which are active, pending or scheduled. Future Appointments This section includes appointments that were scheduled to occur 6 months from the date of the Encounter, up to a maximum of 20 appointments. The data comes from all [facility] facilities. Appointment Date/Time Appointment Type Appointme nt Facility Name Nov 28, 2023 02:40 PM AMBULATORY - SURGERY [facility] Active, Pending, and Scheduled Orders This section includes a listing of several types of active, pending, and scheduled orders, including clinic medications orders, diagnostic test orders, procedure orders and consult orders; where the start date of the order is 45 days before the date of the Encounter or 45 days after the date of theEncounter. The data comes from all [facility]. Test Date/Time Test Type Test Details Facility Name Jul 30, 2023 11:49 AM Consult Order COLONOSCOP Y DIAGNOSTIC OUTPT Cons Blood Coordinator's Choice [facility] Lab Results: +/- 30 days of the encounter This section includes the Chemistry and Hematology Lab Results on record with [place] for the patient. Radiology Reports and Pathology Reports are provided separately, in subsequent sections. Lab Results This section contains the Chemistry/Hematology Results that were resulted 30 days before or 30 daysafter the date of the Encounter. Date/Time Source Result Type Result - Unit Interpretation Reference Range Comment Jul 29, 2023 12:28 PM [facility] OCCULT BLOOD FIT X1 SCREEN Specimen Type: FECES No comment entered. Ordering Provider: ANA WIGGINS Report Released Date/Time: May 29, 2023 02:58 PM Reporting Lab: [facility] [id number] Performing Lab: [facility] [id number] OCCULT BLOOD (FIT) #1 OF 1 POSITIVE HH Negative Social History: Smoking Status (Most current) and Tobacco Use (All prior to encounter date) This section includes the most current, and the historical, smoking and tobacco- related health factors from the [place] facility where the Encounter took place. Current Smoking Status This section includes the most current smoking, or tobacco-related health factor, from the [place] facility where the Encounter took place. Date/Time Current Smoking Status Comment Fede amaya Apr 09, 2017 08:20 AM CURRENT TOBACCO USER [facility] Tobacco Use History This section includes a history of the smoking, or tobacco-related health factors, that were collected on or before the date of the Encounter. The data comes from the [place] facility where the Encounter took place. Date/Time Smoking Status/Tobacco Use Comment F acility Aug 02, 2015 03:27 PM CURRENT TOBACCO USER [facility] Oct 15, 2013 03:00 PM CURRENT TOBACCO USER [facility] Dec 10, 2012 12:12 PM CURRENT TOBACCO USER [facility] Feb 14, 2012 01:04 PM CURRENT TOBACCO USER [facility] Sep 25, 2010 01:00 PM CURRENT TOBACCO USER [facility] Jan 05, 2008 09:13 AM PATIENT IS TOBACCO USER [facility] Apr 22, 2007 03:08 PM CURRENT TOBACCO USER [facility] June 25, 2006 01:48 PM CURRENT TOBACCO USER [facility] Advance Directives: All historical and current Section Date Range: From patient's date of to the date document was created. This section includes ALL of a patient's completed or amended [place] Advance and Rescinded Directives. The entries below indicate that a directive exists for the patient, but an actual copy is not included with this document. The data comes from all [facility]. Date Advance Directives Provider Source Jan 29, 2017 ADVANCE DIRECTIVE DISCUSSION ALEX KURTZ [facility] Encounter Notes: All associated encounter notes This section contains the clinical notes associated to the Encounter. Date/Time Encounter Note(s) Provider Source Aug 01, 2023 10:22 AM RN PROGRESS NOTE: LOCAL TITLE: CCC: CLINICAL TRIAGE STANDARD TITLE: RN PROGRESS NOTE DATE OF NOTE: AUG 01, 2023@10:22 ENTRY DATE: AUG 01, 2023@10:23:55 AUTHOR: DONNA JACKSON COSIGNER: URGENCY: STATUS: COMPLETED PATIENT CONCERN/DURATION/ONSET: [place] calling to report concerns for right lower abdominal pain x 3 days, worsening in the past 1 day. It had been a 1- 2/10, increased to a 7-8/10, occuring every 5 minutes. Patient states that he started a carnivore diet about 19 days ago and noticed dull to sharp pain over the past few days. He states it is concentrated in his lower right abdomen. He hasn't eaten in about 36 hours and is reporting difficulty with bowel movements. He has passed some gas. Reports tenderness to touch, but also relief with pressure. He still has his appendix. WHAT HAS PATIENT TRIED TO TREAT THE SYMPTOMS: MiraLAX x 2 days, not helping. HISTORY/PREVIOUS TREATMENT: Herniated lumbar disc, Migraine, MDD, PTSD, Anxiety, JOSE RAUL, HLD, Constipation, GERD. WHAT IS PATIENT GOAL FOR THE CALL: Advice. Was a Virtual Care Visit considered (TELE or VVC)?: No. NURSE MIDWIFE DISPOSITION: Recommended triage is local ER now secondary to severity of symptoms (increasing severe right lower quadrant pain). Disclaimer read. Toll free number relayed. He will have his son drive him to local ER. He was going to get into a warm bath, advised to report to local ER now vs warm bath, agreed. Advised patient to call back immediately/seek emergency care if any of the signs or symptoms noted above worsen. Best contact for is (Verified- ). This note was created by a 3 [employer] school bus driver/mechanic. Please do not alert this nurse by adding as a signer for future communications. Alerts are not monitored by this user, please reach out to [place] [employer] instead if indicated. Phone Triage Ashley, 01 Aug 2023 15:10:53 +0000 [facility] Demographics 53 y/o Male Results CC: Abdominal Pain Nurse selected: Now Nurse selected follow-up location: Emergency department Software suggested: Now Software suggested follow-up location: Emergency department Values and Measures Duration of CC: 3 Days Positive Responses HPI: abdominal pain, right lower quadrant HPI: abdominal pain, severe, duration longer than 1 hour VS: BP not taken VS: pulse not taken Negative Responses Denies: HPI: abdominal pain, localized to upper abdomen Denies: HPI: chest pain Denies: HPI: syncope, with abdominal pain Denies: PMH: abdominal aortic aneurysm Denies: PSH: appendix removed /es/ LISA MeyersN, RN Registered Nurse, 3 [facility] Signed: 08/01/2023 10:27 DONNA JACKSON [facility]
--- OUTSIDE RECORDS SUMMARY | 2023-08-01 12:24 | XMS_ITS | Encounter Summary ---
Author Name Department of Vetera ns Affairs Organization Department of Vetera ns Affairs Address [address], [place] [address] Care Team Providers Care Bit Setter Name Role Phone KRISTY WIGGINS Primary Care Provider Unava ilable Insurance Providers: All historical and current Section [...] (PPO) FEP BASIC PLUS ONE 2023 113 [id number] Lanre CASTANEDA PATIENT [place] FEP PREFERRED PROVIDER ORGANIZAT ION (PPO) FEP BASIC PLUS ONE 2023 113 [id number] Lanre CASTANEDA PATIENT [employer] FEP RX PRESCRIPT ION FEPRX Feb 17, 2017 [id number] [phone] Lanre CASTANEDA PATIENT Selected Encounter This section includes the information on record at [place] for the Encounter. Date/Time Encounter Type Encounter Description Reason Provider Source Nov 22, 2022 01:00 PM OFF/OP EST JUNE X REQ PHY/QHP PRIMARY CARE/MEDICINE ICD-10-CM R22.2 Localized swelling, mass and lump, trunk SERGE ORTIZ Encounter Template Text not used by [facility] Assessments - Encounter Diagnoses This section includes the primary and secondary diagnoses documented for the Encounter. Date/Time Primary/Secondary Diagnosis Diagnosis Name Provider Source Nov 22, 2022 03:28 PM PRIMARY Localized swelling, mass and lump, trunk [facility]IJOSE [facility] Plan of Treatment: Future Appointments (+ 6 months) and Future Tests (+/- 45 days) The Plan of Treatment section includes future care activities for the patient from all [place] [facility]. This section includes future appointments and future orders which are active, pending or scheduled. Future Appointments This section includes appointments that were scheduled to occur 6 months from the date of the Encounter, up to a maximum of 20 appointments. The data comes from all [place] treatment facilities. Appointment Date/Time Appointment Type Appointme nt Facility Name Nov 23, 2022 09:07 AM AMBULATORY - MEDICINE [facility] Nov 27, 2022 09:00 AM AMBULATORY - MEDICINE [facility] Dec 13, 2022 07:00 AM AMBULATORY - NONE [facility] Dec 20, 2022 02:00 PM AMBULATORY - SURGERY [facility] Jan 07, 2023 02:00 PM AMBULATORY - SURGERY [facility] Jan 28, 2023 02:45 PM AMBULATORY - SURGERY [facility] Mar 25, 2023 03:50 PM AMBULATORY - NONE [facility] Mar 29, 2023 09:00 AM AMBULATORY - MEDICINE [facility] J[facility] Lab Results: +/- 30 days of the encounter This section includes the Chemistry and Hematology Lab Results on record with [place] for the patient. Radiology Reports and Pathology Reports are provided separately, in subsequent sections. Lab Results This section contains the Chemistry/Hematology Results that were resulted 30 days before or 30 daysafter the date of the Encounter. Date/Time Source Result Type Result - Unit Interpretation Reference Range Comment Nov 16, 2022 03:10 PM [facility] SED RATE Specimen Type: BLOOD No comment entered. Ordering Provider: ANA WIGGINS Report Released Date/Time: Nov 14, 2022 04:19 PM Reporting Lab: [facility] [id number] Performing Lab: [facility] [id number] SED RATE 14 mm/h 5-15 Nov 16, 2022 03:10 PM [facility] RHEUMATOID FACTOR Specimen Type: SERUM No comment entered. Ordering Provider: NAA WIGGINS Report Released Date/Time: Nov 14, 2022 04:19 PM Reporting Lab: [facility] [id number] Performing Lab: [facility] [id number] RHEUMATOID FACTOR <13 [IU]/mL <29 Nov 16, 2022 03:10 PM [facility] C-REACTIVE PROTEIN Specimen Type: PLASMA No comment entered. Ordering Provider: ANA WIGGINS Report Released Date/Time: Nov 14, 2022 04:19 PM Reporting Lab: [facility] [phone] Performing Lab: [facility] [address] C-REACTIVE PROTEIN 3.24 mg/L <5.00 Nov 16, 2022 03:10 PM [facility] CBC & DIFF Specimen Type: BLOOD Comment: Automated Differential Performed Ordering Provider: ANA WIGGINS Report Released Date/Time: Nov 14, 2022 04:19 PM Reporting Lab: [facility] [address] Performing Lab: [facility] [address] WBC 8.54 10*3/uL 4.0-11.0 RBC 5.21 10*6/uL 4.6-6.2 HGB 15.4 g/dL 13.5-17.9 HCT 44.5 41-54 MCV 85.4 fL 80-100 MCH 29.6 pg 27-33 MCHC 34.6 g/dL 32.0-37.5 PLT 366 10*3/uL 150-400 MPV 8.7 fL 7.4-10.4 NEUT 57.0 40.0-80.0 LYMPHS 30.9 15.0-45.0 MONO 10.0 2.0-12.0 EOSINO 1.4 0.0-6.0 BASO 0.2 0.0-2.0 RDW 14.4 11.5-14.5 ABS LYMPH 2.64 10*3/uL 1.0-4.0 ABS MONO 0.85 10*3/uL 0.1-1.0 ABS NEUT 4.87 10*3/uL 2.0-7.7 ABS EOS 0.12 10*3/uL 0-0.5 ABS BASO 0.02 10*3/uL 0-0.2 IG(META,MYELO ,PRO) 0.5 ABS IMMATURE GRAN 0.04 10*3/uL 0-0.1 Nov 07, 2022 02:23 PM [facility] C-REACTIVE PROTEIN Specimen Type: PLASMA No comment entered. Ordering Provider: ANA WIGGINS Report Released Date/Time: Nov 07, 2022 02:16 PM Reporting Lab: [facility] [phone] Performing Lab: [facility] [address] C-REACTIVE PROTEIN 11.85 mg/L H <5.00 Nov 07, 2022 02:23 PM [facility] CBC & DIFF Specimen Type: BLOOD Comment: Automated Differential Performed Ordering Provider: ANA WIGGINS Report Released Date/Time: Nov 07, 2022 02:16 PM Reporting Lab: [facility] [address] Performing Lab: [facility] [address] WBC 9.25 10*3/uL 4.0-11.0 RBC 5.44 10*6/uL 4.6-6.2 HGB 15.9 g/dL 13.5-17.9 HCT 47.3 41-54 MCV 86.9 fL 80-100 MCH 29.2 pg 27-33 MCHC 33.6 g/dL 32.0-37.5 PLT 400 10*3/uL 150-400 MPV 8.9 fL 7.4-10.4 NEUT 60.4 40.0-80.0 LYMPHS 29.3 15.0-45.0 MONO 8.6 2.0-12.0 EOSINO 0.9 0.0-6.0 BASO 0.4 0.0-2.0 RDW 14.0 11.5-14.5 ABS LYMPH 2.71 10*3/uL 1.0-4.0 ABS MONO 0.80 10*3/uL 0.1-1.0 ABS NEUT 5.58 10*3/uL 2.0-7.7 ABS EOS 0.08 10*3/uL 0-0.5 ABS BASO 0.04 10*3/uL 0-0.2 IG(META,MYELO ,PRO) 0.4 ABS IMMATURE GRAN 0.04 10*3/uL 0-0.1 Social History: Smoking Status (Most current) and Tobacco Use (All prior to encounter date) This section includes the most current, and the historical, smoking and tobacco- related health factors from the [place] facility where the Encounter took place. Current Smoking Status This section includes the most current smoking, or tobacco-related health factor, from the [place] facility where the Encounter took place. Date/Time Current Smoking Status Comment Facil ity May 16, 2022 02:30 PM VA-TOBACCO USER EVERY DAY [facility] Tobacco Use History This section includes a history of the smoking, or tobacco-related health factors, that were collected on or before the date of the Encounter. The data comes from the [place] facility where the Encounter took place. Date/Time Smoking Status/Tobacco Use Comment F acility May 16, 2022 02:30 PM VA-TOBACCO USE ADVICE [facility] May 16, 2022 02:30 PM VA-TOBACCO USE INTERPRETER YES [facility] May 16, 2022 02:30 PM VA-TOBACCO USE MED YES [facility] May 16, 2022 02:30 PM VA-TOBACCO USE WI 30 MIN OF WAKE UP [facility] May 16, 2022 02:30 PM VA-TOBACCO USER EVERY DAY [facility] Jan 11, 2021 02:30 PM VA-TOBACCO USE 30 YEARS OR MORE [facility] Jan 11, 2021 02:30 PM VA-TOBACCO USE ADVICE [facility] Jan 11, 2021 02:30 PM VA-TOBACCO USE INTERPRETER YES [facility] Jan 11, 2021 02:30 PM VA-TOBACCO USE MED YES [facility] Jan 11, 2021 02:30 PM VA-TOBACCO USE WI 30 MIN OF WAKE UP [facility] Jan 11, 2021 02:30 PM VA-TOBACCO USER EVERY DAY [facility] Apr 01, 2019 10:33 AM VA-TOBACCO USE 30 YEARS OR MORE [facility] Apr 01, 2019 10:33 AM VA-TOBACCO USE ADVICE [facility] Apr 01, 2019 10:33 AM VA-TOBACCO USE INTERPRETER YES [facility] Apr 01, 2019 10:33 AM VA-TOBACCO USE MED YES [facility] Apr 01, 2019 10:33 AM VA-TOBACCO USE [place] 30 MIN OF WAKE UP [facility] Apr 01, 2019 10:33 AM VA-TOBACCO USER EVERY DAY [facility] Jan 05, 2008 09:13 AM PATIENT IS TOBACCO USER [facility] Advance Directives: All historical and current Section Date Range: From patient's date of to the date document was created. This section includes ALL of a patient's completed or amended [place] Advance and Rescinded Directives. The entries below indicate that a directive exists for the patient, but an actual copy is not included with this document. The data comes from all [place] facilities. Date Advance Directives Provider Source Jan 29, 2017 ADVANCE DIRECTIVE DISCUSSION ALEX KURTZ [facility] Radiology Reports: +/- 30 days of [...] the Encounter. The data comes from all [place] treatment facilities. Date/Time Radiology Report Provider Source Nov 22, 2022 01:44 PM US CHEST: SALEEM CASTANEDA [id number] M Exm Date: NOV 22, 2022@13:44 Req Phys: NALLUSAMY,VASUMATHI Pat Loc: [facility] (Req'g Loc) Img Loc: Ultrasound Imaging Service: Unknown (Case [id number] COMPLETE) US CHEST (US Detailed) CPT:84573 Reason for Study: painful lump Clinical History: lump for more than a year , its painful for the past 1 week Report Status: Verified Date Reported: NOV 22, 2022 Date Verified: NOV 22, 2022 Credit Collector E-Sig:/ES/JARRED BURTON MD Report: Exam: ULTRASOUND OF THE SOFT TISSUE IN THE CHEST WALL History: Chest wall lump for over a year, increasing pain in the last week Comparison: None Findings: In the area of clinical concern, a palpable abnormality in the anterior chest wall, corresponds to an irregular mildly complex fluid collection just deep to the dermis which measures 1.8 x 1.1 x 1.7 cm. Mild surrounding hyperemia. This does not demonstrate any internal vascularity. No clear tract to the skin surface. Impression: 1.8 cm mildly complex fluid collection anterior chest wall, consistent with a small abscess. Recommend surgical consultation for I&D and definitive management. I, Jarred Burton, have reviewed the images and report. Primary Interpreting Staff: JARRED BURTON MD, STAFF RADIOLOGIST (Credit Collector) Primary Interpreting Resident: BHAVIN DE GUZMAN DO, PRECISION ASSEMBLER [facility] [place] JARRED BURTON [facility] Pathology Reports: +/- 30 days of the encounter Pathology Reports For cases when an order for pathology services may have been completed prior to the date of the Encounter, the report list includes the Pathology Reports that were completed up to 30 days before dateof the Encounter. For cases when an order for pathology services may have been completed after the date of the Encounter, the report list also includes the Pathology Reports that were completed up to30 days after date of the Encounter. The data comes from all [place] treatment facilities. Date/Time Pathology Report Provider Source Nov 22, 2022 12:58 PM LR MICROBIOLOGY RE PORT: Reporting Lab: [facility] [CLIA# [id number]] [place] [address] Accession [UID]: [id number] [[id number]] Received: Nov 22, 2022@20:10 Collection sample: WOUND Collection date: Nov 22, 2022 12:58 Provider: KRISTY WIGGINS Comment on specimen: center of chest, SWAB RECEIVED Test(s) ordered: GRAM STAIN.................... completed: Nov 22, 2022 22:50 CULTURE & SUSCEPTIBILITY...... completed: Nov 25, 2022 * BACTERIOLOGY FINAL REPORT => Nov 25, 2022 12:21 TECH CODE: [id number] GRAM STAIN: DIRECT SMEAR of specimen before culturing shows: 3+ PMNS 2+ GRAM POSITIVE COCCI IN PAIRS SUGGESTIVE OF STAPH, STREP, OR ENTEROCOCCUS CULTURE PENDING CULTURE RESULTS: 1. PSEUDOMONAS AERUGINOSA - Quantity: 2+ 2. STAPHYLOCOCCUS LUGDUNENSIS - Quantity: 2+ ANTIBIOTIC SUSCEPTIBILITY TEST RESULTS: 1. PSEUDOMONAS AERUGINOSA : 2. STAPHYLOCOCCUS LUGDUNENSIS : : PIP-TAZO...................... S OXACILLIN..................... S CEFEPIME...................... S CEFTAZIDIME................... S IMIPENEM...................... R GENTAMICIN.................... S TOBRAMYCIN.................... S CIPROFLOXACIN................. S TRIMETH/SULFA................. S TETRACYCLINE.................. S CLINDAMYCIN................... S RIFAMPIN...................... S VANCOMYCIN.................... S Bacteriology Remark(s): THIS REPORT IS FINAL =--=--=--=--=--=--=--=--=--=--=--=--=--= --=--=--=--=--=--=--=--=--=--=--=--=-- Performing Laboratory: Bacteriology Report Performed By: [facility] [CLIA# [id number]] [place] [address] [facility] Encounter Notes: All associated encounter notes This section contains the clinical notes associated to the Encounter. Date/Time Encounter Note(s) Provider Source Nov 22, 2022 12:36 PM NURSING OUTPATIENT NOTE: LOCAL TITLE: [facility] NURSING RN NOTE STANDARD TITLE: NURSING OUTPATIENT NOTE DATE OF NOTE: NOV 22, 2022@12:36 ENTRY DATE: NOV 22, 2022@12:36:13 AUTHOR: SERGE ORTIZ EXP COSIGNER: URGENCY: STATUS: COMPLETED [facility] NURSING RN NOTE Has ADDENDA TYPE OF VISIT: Nurse Clinic REASON FOR VISIT: drainage from lesion on chest wall Hiram was seen in clinic on 11/07/22 for a painful lump on his anterior chest wall. An ultrasound was ordered. Hiram reports his sx have significantly worsened since his last visit above. He applied warm packs daily to the lesion and states a huerta came to the surface. Hiram denies squeezing the huerta, rather states when he pulled the skin taught, it spontaneously started draining pus. His shirt is stained from the drainage today. Hiram rates the pain a constant 7/10 and describes it as burning. The lesion measures approximately 1 cm x 0.7 cm. PLAN: Drainage sample obtained and sent for culture today. Ultrasound in [facility] today. Chest wall ultrasound results: Impression: 1.8 cm mildly complex fluid collection anterior chest wall, consistent with a small abscess. Recommend surgical consultation for I&D and definitive management. /payal ORTIZ RN REGISTERED NURSE Signed: 11/22/2022 15:28 Receipt Acknowledged By: 11/22/2022 16:13 /KIMO Mack DNP 11/22/2022 ADDENDUM STATUS: COMPLETED Talked to ED Talked to patient he will go to ED for I&D tomorrow morning /KIMO Mack DNP Signed: 11/22/2022 16:14 SERGE ORTIZ [facility]
--- OUTSIDE RECORDS SUMMARY | 2023-08-01 12:24 | XMS_ITS | Encounter Summary ---
Author Name [facility] Organization [facility] Address [address] [facility], [place] [address] Care Team Providers Care Facilities Operations Technician Name Role Phone KRISTY WIGGINS Primary Care Provider Unava iljose antonio Insurance Providers: All historical and [...] (PPO) FEP BASIC PLUS ONE 2023 113 [id number] [phone] Lanre CASTANEDA PATIENT [place] F[place] PREFERRED PROVIDER ORGANIZAT ION (PPO) FEP BASIC PLUS ONE 2023 113 [id number] Lanre CASTANEDA PATIENT [employer] FEP RX PRESCRIPT ION FEPRX Feb 17, 2017 [id number] Lanre CASTANEDA PATIENT Selected Encounter This section includes the information on record at [place] for the Encounter. Date/Time Encounter Type Encounter Description Reason Provider Source Nov 07, 2022 01:30 PM OFFICE O/P EST LOW 20-29 MIN PRIMARY CARE/MEDICINE ICD-10-CM L98.9 Disorder of the skin and subcutaneous tissue, unspecified NALLUSAMY,VAS UMATHI IHE Encounter Template Text not used by [facility] Assessments - Encounter Diagnoses This section includes the primary and secondary diagnoses documented for the Encounter. Date/Time Primary/Secondary Diagnosis Diagnosis Name Provider Source Nov 11, 2022 10:16 PM PRIMARY Disorder of the skin and subcutaneous tissue, unspecified TATIANNA WILKINSON [facility] Nov 11, 2022 10:16 PM SECONDARY Contact with and exposure to other hazardous substances TATIANNA WILKINSON [facility] Nov 11, 2022 10:16 PM SECONDARY Nicotine dependence, cigarettes, uncomplicated ERBTATIANNA LECHUGA [facility] Plan of Treatment: Future Appointments (+ 6 months) and Future Tests (+/- 45 days) The Plan of Treatment section includes future care activities for the [facility] [place] [facility] This section includes future appointments and future orders which are active, pending or scheduled. Future Appointments This section includes appointments that were scheduled to occur 6 months from the date of the Encounter, up to a maximum of 20 appointments. The data comes from all [place] treatment facilities. Appointment Date/Time Appointment Type Appointme nt Facility Name Nov 16, 2022 02:45 PM AMBULATORY - NONE [facility] Nov 22, 2022 01:00 PM AMBULATORY - NONE [facility] Nov 22, 2022 02:00 PM AMBULATORY - NONE [facility] Nov 23, 2022 09:07 AM AM[facility] - [facility] Nov 27, 2022 09:00 AM AMBULATORY - MEDICINE [facility] Dec 13, 2022 07:00 AM [facility] Dec 20, 2022 02:00 PM AMBULATORY - SURGERY [facility] Jan 07, 2023 02:00 PM AMBULATORY - SURGERY [facility] Jan 28, 2023 02:45 PM AMBULATORY - SURGERY [facility] Mar 25, 2023 03:50 PM AMBULATORY - NONE [facility] Mar 29, 2023 09:00 AM AMBULATORY - MEDICINE [facility] Lab Results: +/- 30 days of the encounter This section includes the Chemistry and Hematology Lab Results on record with [facility] for the patient. Radiology Reports and Pathology Reports are provided separately, in subsequent sections. Lab Results This section contains the Chemistry/Hematology Results that were resulted 30 days before or 30 daysafter the date of the Encounter. Date/Time Source Result Type Result - Unit Interpretation Reference Range Comment Nov 16, 2022 03:10 PM [facility] SED RATE Specimen Type: BLOOD No comment entered. Ordering Provider: ANA WIGGINS Report Released Date/Time: Nov 14, 2022 04:19 PM Reporting Lab: [facility] [id number] Performing Lab: [facility] [id number] SED RATE 14 mm/h 5-15 Nov 16, 2022 03:10 PM [facility] RHEUMATOID FACTOR Specimen Type: SERUM No comment entered. Ordering Provider: ANA WIGGINS Report Released Date/Time: Nov 14, 2022 04:19 PM Reporting Lab: [facility] [id number] Performing Lab: [facility] [id number] RHEUMATOID FACTOR <13 [IU]/mL <29 Nov 16, 2022 03:10 PM [facility] C-REACTIVE PROTEIN Specimen Type: PLASMA No comment entered. Ordering Provider: ANA WIGGINS Report Released Date/Time: Nov 14, 2022 04:19 PM Reporting Lab: [facility] [id number] Performing Lab: [facility] [phone] C-REACTIVE PROTEIN 3.24 mg/L <5.00 Nov 16, 2022 03:10 PM [facility] CBC & DIFF Specimen Type: BLOOD Comment: Automated Differential Performed Ordering Provider: ANA WIGGINS Report Released Date/Time: Nov 14, 2022 04:19 PM Reporting Lab: [facility] [id number] Performing Lab: [facility] [address] WBC 8.54 10*3/uL 4.0-11.0 RBC 5.21 10*6/uL [...] 10*3/uL 0-0.1 Nov 07, 2022 02:23 PM [facility] C-REACTIVE PROTEIN Specimen Type: PLASMA No comment entered. Ordering Provider: ANA WIGGINS Report Released Date/Time: Nov 07, 2022 02:16 PM Reporting Lab: [facility] [id number] Performing Lab: [facility] [address] C-REACTIVE PROTEIN 11.85 mg/L H <5.00 Nov 07, 2022 02:23 PM [facility] CBC & DIFF Specimen Type: BLOOD Comment: Automated Differential Performed Ordering Provider: ANA WIGGINS Report Released Date/Time: Nov 07, 2022 02:16 PM Reporting Lab: [facility] [phone] Performing Lab: [facility] [id number] WBC 9.25 10*3/uL 4.0-11.0 RBC 5.44 10*6/uL [...] 0.4 ABS IMMATURE GRAN 0.04 10*3/uL 0-0.1 Vital Signs: All taken on the encounter date This section contains inpatient and outpatient Vital Signs collected on the date of the Encounter. Date/Time Temperature Pulse Blood Pressure Respiratory Rate SP02 Pain Height Weight Body Mass Index Source Nov 07, 2022 01:38 PM 98.3 F 81 /min 118/79 mm[Hg] 14 /min 97 % 8 211.2 lb 29 HESHAMPE E CBDANYELL Social History: Smoking Status (Most current) and Tobacco Use (All prior to encounter date) This section includes the most current, and the historical, smoking and tobacco- related health factors from the [place] facility where the Encounter took place. Current Smoking Status This section includes the most current smoking, or tobacco-related health factor, from the [place] facility where the Encounter took place. Date/Time Current Smoking Status Comment Facil ity May 16, 2022 02:30 PM VA-TOBACCO USER EVERY DAY [facility] Tobacco Use History This section includes a history of the smoking, or tobacco-related health factors, that were collected on or before the date of the Encounter. The data comes from the [place] facility where the Encounter took place. 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 [facility] May 16, 2022 02:30 PM VA-TOBACCO USE MED YES [facility] May 16, 2022 02:30 PM VA-TOBACCO USE [place] 30 MIN OF WAKE UP [facility] May 16, 2022 02:30 PM VA-TOBACCO USER EVERY DAY [facility] Jan 11, 2021 02:30 PM VA-TOBACCO USE 30 YEARS OR MORE [facility] Jan 11, 2021 02:30 PM VA-TOBACCO USE ADVICE [facility] Jan 11, 2021 02:30 PM VA-TOBACCO USE 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 AND 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 [facility] Jan 11, 2021 02:30 PM VA-TOBACCO USE MED YES [facility] Jan 11, 2021 02:30 PM VA-TOBACCO USE WI 30 MIN OF WAKE UP [facility] Jan 11, 2021 02:30 PM VA-TOBACCO USER EVERY DAY [facility] Apr 01, 2019 10:33 AM VA-TOBACCO USE 30 YEARS OR MORE [facility] Apr 01, 2019 10:33 AM VA-TOBACCO USE ADVICE [facility] Apr 01, 2019 10:33 AM VA-TOBACCO USE 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 Advance Directives: All historical and current Section Date Range: From patient's date of to the date document was created. This section includes ALL of a patient's completed or amended [place] Advance and Rescinded Directives. The entries below indicate that a directive exists for the patient, but an actual copy is not included with this document. The data comes from all [place] facilities. Date Advance Directives Provider Source Jan 29, 2017 ADVANCE DIRECTIVE DISCUSSION ALEX KURTZ [facility] Radiology Reports: +/- 30 days of the [...] the Encounter. The data comes from all [place] treatment facilities. Date/Time Radiology Report Provider Source Nov 22, 2022 01:44 PM US CHEST: SALEEM CASTANEDA [id number] -[id number] M Exm Date: NOV 22, 2022@13:44 Req Phys: NALLUSAMY,VASUMATHI Pat Loc: [facility] (Req'g Loc) Img Loc: Ultrasound Imaging Service: Unknown (Case [id number] COMPLETE) US CHEST (US Detailed) CPT:87480 Reason for Study: painful lump Clinical History: lump for more than a year , its painful for the past 1 week Report Status: Verified Date Reported: NOV 22, 2022 Date Verified: NOV 22, 2022 Production Machine Computer Operator E-Sig:/ES/JARRED BURTON MD Report: Exam: ULTRASOUND OF [...] Interpreting Staff: JARRED BURTON MD, STAFF RADIOLOGIST (Production Machine Computer Operator) Primary Interpreting Resident: BHAVIN DE GUZMAN DO, CORRECTIONAL FOOD SERVICE SUPERVISOR /AGNIESZKA JARRED BURTON [facility] Pathology Reports: +/- 30 days of the [...] the Encounter. The data comes from all [place] treatment facilities. Date/Time Pathology Report Provider Source Nov 22, 2022 12:58 PM LR MICROBIOLOGY RE PORT: Reporting Lab: [facility] [CLIA# [id number]] [place] [address] Accession [UID]: [id number] [[id number]] Received: Nov 22, 2022@20:10 Collection sample: WOUND Collection date: Nov 22, 2022 12:58 Provider: KRISTY WIGGINS Comment on specimen: center of chest, SWAB RECEIVED Test(s) ordered: GRAM STAIN.................... completed: Nov 22, 2022 22:50 CULTURE & SUSCEPTIBILITY...... completed: Nov 25, 2022 * BACTERIOLOGY FINAL REPORT => Nov 25, 2022 12:21 TECH CODE: [id number] GRAM STAIN: DIRECT SMEAR of specimen before [...] --=--=--=--=--=--=--=--=--=--=--=--=-- Performing Laboratory: Bacteriology Report Performed By: [facility] [CLIA# [id number]] [place] [address] [facility] Encounter Notes: All associated encounter notes This section contains the clinical notes associated to the Encounter. Date/Time Encounter Note(s) Provider Source Nov 07, 2022 02:01 PM PRIMARY CARE NOTE: LOCAL TITLE: [facility] PROGRESS NOTE - [facility] STANDARD TITLE: PRIMARY CARE NOTE DATE OF NOTE: NOV 07, 2022@14:01 ENTRY DATE: NOV 07, 2022@14:01:12 AUTHOR: KRISTY WIGGINS EXP COSIGNER: URGENCY: STATUS: COMPLETED [facility] PROGRESS NOTE - [facility] Has ADDENDA Today's Nurse check-in note reviewed. Chief complaint: The patient is a 52 year old MALE, established at this clinic, who is here with the following concern(s): Lump - in chest under the nipple line mid chest - painful to touch and very sensitive to even slight contact . - 3 to 4 days of pain he has not noticed any drainage. He says in the past when he had such a swelling he used to express some drainage out but this is very painful and is non fluctuant and no drainage. Denies any fever cough congestion no nausea vomiting diarrhea. States that he has stopped smoking but he is still surrounded by others who smoke. Otherwise with history of chronic back pain, tobacco dependence, alcohol dependence, migraine, ED and GERD. Remainder of 10 point ROS is negative, except as above. Allergies: Patient has answered NKA Medications: Active Outpatient Medications (including Supplies): Active Outpatient Medications Status 1) FLUTICASONE PROP 50MCG 120D NASAL INHL SPRAY 1 SPRAY ACTIVE IN EACH NOSTRIL TWICE A DAY USE REGULARLY FOR RELIEF OF ALLERGIES/CONGESTION 2) NICOTINE 21MG/24HR PATCH APPLY 1 PATCH TOPICALLY ACTIVE EVERY DAY TO QUIT TOBACCO 3) NICOTINE POLACRILEX 2MG MINI LOZENGE DISSOLVE 1 MINI ACTIVE LOZENGE IN MOUTH EVERY 2 HOURS NEEDED TO QUIT TOBACCO 4) PANTOPRAZOLE NA 40MG EC TAB TAKE ONE TABLET BY MOUTH ACTIVE EVERY DAY NEEDED ONE-HALF HOUR BEFORE EATING. TAKE 30 MIN BEFORE FIRST ORAL INTAKE OF THE MORNING OR 2 HOURS AFTER LAST MEAL OF EVENING LONG STAY CONSISTENT 5) POLYETHYLENE GLYCOL 3350 ORAL PWDR TAKE 17 GRAMS BY ACTIVE MOUTH EVERY DAY NEEDED FOR CONSTIPATION *MIX IN 4 TO 8 OUNCES OF LIQUID DIRECTED*USE COVER TO MEASURE POWDER* 6) PSYLLIUM ORAL PWD TAKE 1 TEASPOONFUL BY MOUTH EVERY ACTIVE MORNING MIXED IN JUICE OR WATER DIRECTED *CAN INCREASE TO 2 TEASPOONS DAILY IF NEEDED* 7) ROSUVASTATIN CA 10MG TAB TAKE ONE TABLET BY MOUTH AT ACTIVE BEDTIME 8) SUMATRIPTAN SUCCINATE 50MG TAB TAKE ONE TABLET BY ACTIVE MOUTH EVERY DAY NEEDED MAY REPEAT AFTER 2 HOURS IF NEEDED. MAXIMUM OF 200 MG IN 24 HOURS. FOR HEADACHE Active Non-VA Medications Status 1) Non-VA IBUPROFEN 200MG TAB 200 MG THREE TIMES A DAY ACTIVE NEEDED 9 Total Medications Physical Exam: Vitals: BP: 118/79 (11/07/2022 13:38) P: 81 (11/07/2022 13:38) R: 14 (11/07/2022 13:38) T: 98.3 F [36.8 C] (11/07/2022 13:38) WT: 211.2 lb. [95.80 kg] (11/07/2022 13:38) BMI: 28.7 Pain: 8 (11/07/2022 13:38) O2 Sat: 97% (11/07/2022 13:38) General: Alert, well dressed and groomed, no apparent distress HEENT: Normocephalic, atraumatic, ear canals clear, TMs normal, OP clear, neck supple without mass, adenopathy or thyromegaly Lungs: Clear; no wheezes, rhonchi or rales CV: RRR without murmur, rub or gallop GI: Abdomen non distended, soft, non-tender, normal bowel sounds, no mass or HSM Skin: Small tender lipoma-like lump in the middle of the chest, no drainage no marya lesion erythema . no rash or erythema MS: No joint swelling, ambulates without difficulty Psych: Good eye contact, speech normal rate and rhythm, affect full range Assessment/Plan: We will get CBC with differential and CRP We will get a soft tissue ultrasound Can warm pack or ice pack for pain If the swelling increases and any red flags of spreading infection follow-up urgently Disclaimer: This note consists of symbols derived from keyboarding, dictation and/or voice recognition software. As a result, there may be errors in the script that have gone undetected. Please consider this when interpreting information found in this chart. [place] understands and agrees to the plan. Follow up as discussed. Sooner if questions or concerns. Toxic Exposure Screening Follow-Up: Exposure Concern(s): 05/16/2022 Other Environmental Concerns - Toxic Exposure Concern [facility] Follow-up Question(s): 05/16/2022 No Questions - Toxic Exposure Concern Lake/caregiver has health or medical concerns related to their concern of environmental exposure. Concern: No symptoms The following connections were provided to the [place]/caregiver: [employer] ([employer]) for Benefits/claims: [place] Case Coordinator/Organization (VSO) [email or web address].org/find- [email or web address]-cvso.[email or web address] /es/ KIMO ROSENBERG DNP Signed: 11/11/2022 22:16 11/11/2022 ADDENDUM STATUS: UNSIGNED You may not VIEW this UNSIGNED Addendum. ALIREZAKRISTY MARCIAL [facility] Nov 07, 2022 01:43 PM PRIMARY CARE IVA PALMER NOTE: LOCAL TITLE: CBOC NURSING PROGRESS NOTE STANDARD TITLE: PRIMARY CARE NURSING NOTE DATE OF NOTE: NOV 07, 2022@13:43 ENTRY DATE: NOV 07, 2022@13:44:04 AUTHOR: ROCK ZAVALA COSIGNER: URGENCY: STATUS: COMPLETED TYPE OF VISIT: Appointment Check In Type of appointment: In-person appointment REASON FOR VISIT: Cyst on chest ALLERGIES: Patient has answered NKA VITAL SIGNS: Blood Pressure: 118/79 (11/07/2022 13:38) Pulse: 81 (11/07/2022 13:38) Respiration: 14 (11/07/2022 13:38) Temperature: 98.3 F [36.8 C] (11/07/2022 13:38) Weight: 211.2 lb [95.80 kg] (11/07/2022 13:38) Height: 72 in [182.9 cm] (05/16/2022 14:51) BMI: 28.7 O2 Sat: 97% (11/07/2022 13:38) Pain: 8 (11/07/2022 13:38) PAIN SCREEN: Patient is having significant pain that they would like to talk to their provider about today. Old (Chronic) (began more than 6 months ago) Patient states their average pain this past week is 8 Patient states the average number on how the chronic pain affects their enjoyment of life the past week is 5 Patient states during the past week the average number on how the pain has interfered with their general activity is 5 MEDICATION Active Outpatient Medications (including Supplies): FLUTICASONE PROP 50MCG 120D NASAL INHL SPRAY 1 SPRAY IN ACTIVE EACH NOSTRIL TWICE A DAY USE REGULARLY FOR RELIEF OF ALLERGIES/CONGESTION NICOTINE 21MG/24HR PATCH APPLY 1 PATCH TOPICALLY EVERY DAY ACTIVE TO QUIT TOBACCO NICOTINE POLACRILEX 2MG MINI LOZENGE DISSOLVE 1 MINI ACTIVE LOZENGE IN MOUTH EVERY 2 HOURS NEEDED TO QUIT TOBACCO PANTOPRAZOLE NA 40MG EC TAB TAKE ONE TABLET BY MOUTH EVERY ACTIVE DAY NEEDED ONE-HALF HOUR BEFORE EATING. TAKE 30 MIN BEFORE FIRST ORAL INTAKE OF THE MORNING OR 2 HOURS AFTER LAST MEAL OF EVENING LONG STAY CONSISTENT POLYETHYLENE GLYCOL 3350 ORAL PWDR TAKE 17 GRAMS BY MOUTH ACTIVE EVERY DAY NEEDED FOR CONSTIPATION *MIX IN 4 TO 8 OUNCES OF LIQUID DIRECTED*USE COVER TO MEASURE POWDER* PSYLLIUM ORAL PWD TAKE 1 TEASPOONFUL BY MOUTH EVERY ACTIVE MORNING MIXED IN JUICE OR WATER DIRECTED *CAN INCREASE TO 2 TEASPOONS DAILY IF NEEDED* ROSUVASTATIN CA 10MG TAB TAKE ONE TABLET BY MOUTH AT ACTIVE BEDTIME SUMATRIPTAN SUCCINATE 50MG TAB TAKE ONE TABLET BY MOUTH ACTIVE EVERY DAY NEEDED MAY REPEAT AFTER 2 HOURS IF NEEDED. MAXIMUM OF 200 MG IN 24 HOURS. FOR HEADACHE Non-VA IBUPROFEN 200MG TAB 200 MG THREE TIMES A DAY ACTIVE NEEDED Over the Counter/Herbal Medications: The patient states that they take some outside medications and/or herbals. Alcohol Use Screen (AUDIT-C): Alcohol Screen: SCREEN FOR ALCOHOL (AUDIT-C) An alcohol screening test (AUDIT-C) was positive (score=9). 1. How often did you have a drink containing alcohol in the past year? Two to three times per week 2. How many drinks containing alcohol did you have on a typical day when you were drinking in the past year? Seven to nine drinks 3. How often did you have six or more drinks on one occasion in the past year? Weekly Homelessness/Food Insecurity Screen: In the past 2 months, have you been living in stable housing that you own, rent, or stay in as part of a household? Yes - Living in stable housing. Are you worried or concerned that in the next 2 months you may NOT have stable housing that you own, rent, or stay in as part of a household? No - Not worried about housing near future The reports the following: Within the past 12 months, you worried whether your food would run out before you got money to buy more. Never true Within the past 12 months, the food you bought just didn't last and you didn't have money to get more. Never true Food Insecurity Resources Influenza Immunization: The patient declines to receive the recommended dose of seasonal influenza vaccine. Immunization: INFLUENZA, UNSPECIFIED FORMULATION Refusal Reason: PATIENT DECISION Patient refuses all immunization(s) in the FLU group Date Documented: 11/07/22 13:53 Herpes Zoster (Shingles) Vaccine: The patient declines to receive the recommended dose of zoster (shingles) vaccine. Immunization: ZOSTER RECOMBINANT Refusal Reason: PATIENT DECISION Patient refuses all immunization(s) in the ZOSTER group Date Documented: 11/07/22 13:53 Pneumococcal Conjugate Vaccine (PCV15/PCV20): Refuses PCV vaccine Immunization: PNEUMOCOCCAL CONJUGATE, UNSPECIFIED FORMULATION Refusal Reason: PATIENT DECISION Patient refuses all immunization(s) in the PneumoPCV group Date Documented: 11/07/22 13:54 /michelle/ ROCK ZAVALA LPN LICENSED PRACTICAL NURSE Signed: 11/07/2022 14:05 [facility]
--- OUTSIDE RECORDS SUMMARY | 2023-08-01 12:24 | XMS_ITS | Encounter Summary ---
Author Name [facility] Organization [facility] Address [address], [place] [address] Care Team Providers Care Soil Tester Name Role Phone KRISTY WIGGINS Primary Care [...] (PPO) FEP BASIC PLUS ONE 2023 [id number] 84 Lanre CASTANEDA PATIENT [place] FEP PREFERRED PROVIDER ORGANIZAT ION (PPO) FEP BASIC PLUS ONE 2023 113 [id number] [phone] Lanre CASTANEDA PATIENT [employer] FEP RX PRESCRIPT ION FEPRX Feb 17, 2017 [id number] Lanre CASTANEDA PATIENT Selected Encounter This section includes the information on record at [place] for the Encounter. Date/Time Encounter Type Encounter Description Reason Provider Source Nov 23, 2022 09:07 AM EMERGENCY DEPT VISIT [facility] EMERGENCY DEPT ICD-10-CM L72.3 Sebaceous cyst RODERICK AKHTAR E Encounter Template Text not used by [facility] Assessments - Encounter Diagnoses This section includes the primary and secondary diagnoses documented for the Encounter. Date/Time Primary/Secondary Diagnosis Diagnosis Name Provider Source Nov 23, 2022 10:40 AM PRIMARY Sebaceous cyst JAI SIMPSON IN A [facility] Plan of Treatment: Future Appointments (+ 6 months) and Future Tests (+/- 45 days) The Plan of Treatment section includes future care activities for the patient from all [place] treatmentfacilities. This section includes future appointments and future orders which are active, pending or scheduled. Future Appointments This section includes appointments that were scheduled to occur 6 months from the date of the Encounter, up to a maximum of 20 appointments. The data comes from all [place] treatment facilities. Appointment Date/Time Appointment Type Appointme nt Facility Name Nov 27, 2022 09:00 AM AMBULATORY - MEDICINE [facility] Dec 13, 2022 07:00 AM AMBULATORY - NONE [facility] Dec 20, 2022 02:00 PM AMBULATORY - SURGERY [facility] Jan 07, 2023 02:00 PM AMBULATORY - SURGERY [facility] Jan 28, 2023 02:45 PM AMBULATORY - SURGERY [facility] Mar 25, 2023 03:50 PM AMBULATORY - NONE [facility] Mar 29, 2023 09:00 AM AMBULATORY - MEDICINE [facility] Lab Results: +/- 30 days of [...] Range Comment Nov 16, 2022 03:10 PM [facility] SED RATE Specimen Type: BLOOD No comment entered. Ordering Provider: ANA WIGGINS Report Released Date/Time: Nov 14, 2022 04:19 PM Reporting Lab: [facility] [id number] Performing Lab: [facility] [id number] SED RATE 14 mm/h 5-15 Nov 16, 2022 03:10 PM [facility] RHEUMATOID FACTOR Specimen Type: SERUM No comment entered. Ordering Provider: ANA WIGGINS Report Released Date/Time: Nov 14, 2022 04:19 PM Reporting Lab: [facility] [id number] Performing Lab: [facility] [address] RHEUMATOID FACTOR <13 [IU]/mL <29 Nov 16, 2022 03:10 PM [facility] C-REACTIVE PROTEIN Specimen Type: PLASMA No comment entered. Ordering Provider: ANA WIGGINS Report Released Date/Time: Nov 14, 2022 04:19 PM Reporting Lab: [facility] [address] Performing Lab: [facility] [address] C-REACTIVE PROTEIN 3.24 mg/L <5.00 Nov 16, 2022 03:10 PM [facility] CBC & DIFF Specimen Type: BLOOD Comment: Automated Differential Performed Ordering Provider: ANA WIGGINS Report Released Date/Time: Nov 14, 2022 04:19 PM Reporting Lab: [facility] [address] Performing Lab: [facility] [address] WBC 8.54 10*3/uL 4.0-11.0 RBC 5.21 10*6/uL [...] 10*3/uL 0-0.1 Nov 07, 2022 02:23 PM [facility] C-REACTIVE PROTEIN Specimen Type: PLASMA No comment entered. Ordering Provider: ANA WIGGINS ATHMarty Report Released Date/Time: Nov 07, 2022 02:16 PM Reporting Lab: [facility] [id number] Performing Lab: [facility] [id number] C-REACTIVE PROTEIN 11.85 mg/L H <5.00 Nov 07, 2022 02:23 PM [facility] CBC & DIFF Specimen Type: BLOOD Comment: Automated Differential Performed Ordering Provider: ANA WIGGINS ATHMarty Report Released Date/Time: Nov 07, 2022 02:16 PM Reporting Lab: [facility] [address] Performing Lab: [facility] [address] WBC 9.25 10*3/uL 4.0-11.0 RBC 5.44 10*6/uL [...] Height Weight Body Mass Index Source Nov 23, 2022 09:11 AM 97.9 F 79 /min 128/85 mm[Hg] 16 /min 97 % 7 [place] [facility] Social History: Smoking Status (Most current) and [...] Date/Time Current Smoking Status Comment Facil ity Apr 09, 2017 08:20 AM CURRENT TOBACCO USER [facility] Tobacco Use History This section includes a history of the smoking, or tobacco-related health factors, that were collected on or before the date of the Encounter. The data comes from the [place] facility where the Encounter took place. Date/Time Smoking Status/Tobacco Use Comment F acility Aug 02, 2015 03:27 PM CURRENT TOBACCO USER [facility] Oct 15, 2013 03:00 PM CURRENT TOBACCO USER [facility] Dec 10, 2012 12:12 PM CURRENT TOBACCO USER [facility] Feb 14, 2012 01:04 PM CURRENT TOBACCO USER [facility] Sep 25, 2010 01:00 PM CURRENT TOBACCO USER [facility] Jan 05, 2008 09:13 AM PATIENT IS TOBACCO USER [facility] Apr 22, 2007 03:08 PM CURRENT TOBACCO USER [facility] June 25, 2006 01:48 PM CURRENT TOBACCO USER [facility] Advance Directives: All historical and current [...] 29, 2017 ADVANCE DIRECTIVE DISCUSSION ALEX KURTZ [facility] Radiology Reports: +/- 30 days of [...] 2022 01:44 PM US CHEST: SALEEM CASTANEDA [id number] -[id number] M Exm Date: NOV 22, 2022@13:44 Req Phys: NALLUSAMY,VASUMATHI Pat Loc: [facility] (Req'g Loc) Img Loc: Ultrasound Imaging Service: Unknown (Case [id number] COMPLETE) US CHEST (US Detailed) CPT:15899 Reason for Study: painful lump Clinical History: lump for more than a year , its painful for the past 1 week Report Status: Verified Date Reported: NOV 22, 2022 Date Verified: NOV 22, 2022 Hospice Director E-Sig:/ES/JARRED BURTON MD Report: Exam: ULTRASOUND OF [...] surgical consultation for I&D and definitive management. IJarred, have reviewed the images and report. Primary Interpreting Staff: JARRED BURTON MD, STAFF RADIOLOGIST (Hospice Director) Primary Interpreting Resident: BHAVIN DE GUZMAN DO, FITNESS CENTRE MANAGER /AGNIESZKA JARRED BURTON [facility] Pathology Reports: +/- 30 days of [...] PM LR MICROBIOLOGY RE PORT: Reporting Lab: [facility] [CLIA# [id number]] [place] [address] Accession [UID]: [id number] [[id number]] Received: Nov 22, 2022@20:10 Collection sample: WOUND Collection date: Nov 22, 2022 12:58 Provider: KRISTY WIGGINS Comment on specimen: center of chest, SWAB RECEIVED Test(s) ordered: GRAM STAIN.................... completed: Nov 22, 2022 22:50 CULTURE & SUSCEPTIBILITY...... completed: Nov 25, 2022 * BACTERIOLOGY FINAL REPORT => Nov 25, 2022 12:21 TECH CODE: [id number] GRAM STAIN: DIRECT SMEAR of specimen before [...] --=--=--=--=--=--=--=--=--=--=--=--=-- Performing Laboratory: Bacteriology Report Performed By: [facility] [CLIA# [id number]] [place] [address] [facility] Encounter Notes: All associated encounter notes This section contains the clinical notes associated to the Encounter. Date/Time Encounter Note(s) Provider Source Nov 23, 2022 03:56 PM ADDENDUM: LOCAL TITLE: Addendum STANDARD TITLE: ADDENDUM DATE OF NOTE: NOV 23, 2022@15:56:43 ENTRY DATE: NOV 23, 2022@15:56:44 AUTHOR: KRISTY WIGGINS EXP COSIGNER: URGENCY: STATUS: COMPLETED Routing to RN for assistance to follow up /michelle/ KIMO ROSENBERG DNP Signed: 11/23/2022 15:57 Receipt Acknowledged By: 11/23/2022 17:10 /es/ SERGE ORTIZ RN REGISTERED NURSE --- Original Document --- 11/23/22 EMERGENCY DEPT NOTE: Personal Protective Equipment (PPE): Patient was in mask on arrival, Patient was in mask on arrival, patient remained masked for entire visit, RN used PPE during every encounter with the patient, MD/PA/ASSISTANT PRODUCTION EDITOR used PPE during every encounter with the patient Nurse's note reviewed. Chief Complaint: The patient is a 52 y/o MALE complaining of: Cyst on chest TDAP/TD Immunizations Immunization Series Date Facility Reaction Info TDAP 08/11/2015 [facility]* <C> <C> See the Detailed Immunizations Health Summary Component[DIM] for Comments Covid-19 Immunizations No prior COVID-19 immunization History of present illness: Patient is a pleasant 52-year-old male presents to the emergency department with concerns for cyst on his chest. Patient has been evaluated in the primary care clinic and wound culture has been obtained. Patient was told to come to the emergency department for I&D. Allergies: Patient has answered NKA Review of Systems: 10 point ROS reviewed and otherwise negative unless stated in HPI. Past Medical History: Active problems - Computerized Problem List is the source for the followin. Tobacco dependence caused by cigarettes (SNOMED CT 43572186301376042) 2. Alcohol dependence (SNOMED CT 65154907) 3. Anxiety (SNOMED CT 02669829) 4. Herniated Lumbar Disc - h/o discectomy/surgery 5. Posttraumatic stress disorder (SNOMED CT 94160662) 6. Major depressive disorder (SNOMED CT 962062575) 7. Other Malaise and Fatigue 8. Hyperlipidemia (SNOMED CT 48026140) 9. Male erectile disorder 10. Pain in joint involving ankle and foot 11. Migraine 12. Dental abscess 13. Gambling 14. Obstructive sleep apnea of adult 15. Tinea unguium 16. Tinea pedis 17. Gastroesophageal reflux disease 18. Constipation 19. Exposure to Potentially Hazardous Substance ([facility] [id number]) - AFFF CV Risk Factors: History of tobacco use Family History: Not applicable Social History: Tobacco use: Smoker Medications: Active Outpatient Medications (excluding Supplies): Outpatient Medications Status 1) DOXYCYCLINE HYCLATE 100MG TAB TAKE ONE TABLET BY ACTIVE MOUTH TWICE A DAY FOR ABSCESS 2) FLUTICASONE PROP 50MCG 120D NASAL INHL SPRAY 1 SPRAY ACTIVE IN EACH NOSTRIL TWICE A DAY USE REGULARLY FOR RELIEF OF ALLERGIES/CONGESTION 3) NICOTINE 21MG/24HR PATCH APPLY 1 PATCH TOPICALLY ACTIVE EVERY DAY TO QUIT TOBACCO 4) NICOTINE POLACRILEX 2MG MINI LOZENGE DISSOLVE 1 MINI ACTIVE LOZENGE IN MOUTH EVERY 2 HOURS NEEDED TO QUIT TOBACCO 5) PANTOPRAZOLE NA 40MG EC TAB TAKE ONE TABLET BY MOUTH ACTIVE EVERY DAY NEEDED ONE-HALF HOUR BEFORE EATING. TAKE 30 MIN BEFORE FIRST ORAL INTAKE OF THE MORNING OR 2 HOURS AFTER LAST MEAL OF EVENING LONG STAY CONSISTENT 6) POLYETHYLENE GLYCOL 3350 ORAL PWDR TAKE 17 GRAMS BY ACTIVE MOUTH EVERY DAY NEEDED FOR CONSTIPATION *MIX IN 4 TO 8 OUNCES OF LIQUID DIRECTED*USE COVER TO MEASURE POWDER* 7) PSYLLIUM ORAL PWD TAKE 1 TEASPOONFUL BY MOUTH EVERY ACTIVE MORNING MIXED IN JUICE OR WATER DIRECTED *CAN INCREASE TO 2 TEASPOONS DAILY IF NEEDED* 8) ROSUVASTATIN CA 10MG TAB TAKE ONE TABLET BY MOUTH AT ACTIVE BEDTIME 9) SUMATRIPTAN SUCCINATE 50MG TAB TAKE ONE TABLET BY ACTIVE MOUTH EVERY DAY NEEDED MAY REPEAT AFTER 2 HOURS IF NEEDED. MAXIMUM OF 200 MG IN 24 HOURS. FOR HEADACHE Non-VA Medications Status 1) Non-VA IBUPROFEN 200MG TAB 200 MG THREE TIMES A DAY ACTIVE NEEDED 10 Total Medications Physical Exam: BP: 128/85 (11/23/2022 09:11) P: 79 (11/23/2022 09:11) R: 16 (11/23/2022 09:11) T: 97.9 F [36.6 C] (11/23/2022 09:11) O2 Sats: 97% (11/23/2022 09:11) General: well developed, well nourished, NAD Skin: Over the sternum at the level of the nipples there is a 2.5 cm round fluctuant mass with overlying erythema with punctate. No drainage. No appreciable warmth when compared to surrounding tissue. Neuro: alert and oriented, sensation intact ED Course/Medical Decision Making/Assessment: CPRS Notes/Labs Reviewed for Patient Encounter: Emergency department triage, emergency department nursing note, primary care clinic note, ultrasound notes from yesterday, wound culture results. Patient presenting with concerns for a cyst on his chest. Wound culture obtained yesterday indicates staph versus strep colonization. I&D performed successfully at bedside. Patient will be covered with antibiotics 2/2 overlying erythema suggesting cellulitic infection. Patient's vitals are otherwise stable and patient is safe for discharge with medications for symptomatic cares, return precautions and follow-up instructions. Diagnosis and Plan: 1. sebaceous cyst. I&D performed successfully at bedside. Patient discharged with prescription for doxycycline. Patient would benefit from definitive treatment of having cyst wall removal. This would be performed in general surgery outpatient clinic. Patient would require outpatient referral to the surgery clinic after he recuperates from his I&D. This will be deferred to patient's primary care team. 2. Patient was educated to all aspects of the plan and verbalized complete understanding. Patient will follow up with primary care as needed. Patient will immediately return to the emergency department should he develop any new and/or concerning symptoms. 3. Procedural details: Red flags such as infection discussed, verbal consent obtained. After patient positioning, skin cleaned with alcohol, anesthesia obtained with lidocaine/epinephrine applied in local fashion with approximately 3 cc injected, Betadine x3, sterile field obtained through draping, incision with #11 blade, Rupa clamp used to widen incision by blunt dissection, Rupa clamp used to break up cyst loculations, cyst contents expressed through incision, approximately 1.5 cc of pustulant and serosanguineous fluid expressed, Rupa clamp used to place iodine impregnated iodoform packing into abscess, approximately 3 cm of packing placed and covered with gauze/Medipore tape. Minimal blood loss. No complications. Preprocedure diagnosis: Abscess. Postprocedure diagnosis: Same. Disposition: Condition on discharge: No change Provider determined patient ready for discharge at: Nov@10:13 Patient instructed to call [place] Primary Clinic in other if no improvement. The above note was dictated using voice recognition software. While proofreading attempts were made to verify accuracy, it is possible that nonsensical phrases and words are still contained within the document. Please direct all questions regarding content to the original author. /michelle/ RODERICK AKHTAR PA-C PHYSICIAN CHRISTIAN COUNSELOR Signed: 11/23/2022 10:17 Receipt Acknowledged By: 11/23/2022 15:56 /michelle/ KIMO ROSENBERG DNP, [facility] Nov 23, 2022 10:41 AM NURSING EMERGENCY DEPT NOTE: LOCAL TITLE: EMERGENCY DEPT NURSING NOTE STANDARD TITLE: NURSING EMERGENCY DEPT NOTE DATE OF NOTE: NOV 23, 2022@10:41 ENTRY DATE: NOV 23, 2022@10:41:55 AUTHOR: DARREN ZHAO EXP COSIGNER: URGENCY: STATUS: COMPLETED Emergency Department Discharge Education Personal Protective Equipment (PPE): The patient was given education on the following: WOUND PACKING CHANGE DONE BY YOUR HEALTH CARE PROVIDER EDUCATION/TEACH BACK: [facility] discharge instructions have been reviewed with Patient AND had an opportunity to ask questions, has verbalized understanding, have received a copy of the [facility] instructions, Performs skills effectively EDUCATIONAL LEVEL OF UNDERSTANDING: Patient was ready and receptive to education. BARRIERS TO LEARNING: No barriers identified Accompanied by: Self Mode of Transportation: Drive self EXIT ADDITIONAL EDUCATION GIVE: Discharged to: Home /michelle/ DARREN ZHAO, MSN, RN REGISTERED NURSE Signed: 11/23/2022 10:43 DARREN ZHAO [facility] Nov 23, 2022 10:10 AM PHYSICIAN EMERGENCY DEPT NOTE: LOCAL TITLE: EMERGENCY DEPT NOTE STANDARD TITLE: PHYSICIAN EMERGENCY DEPT NOTE DATE OF NOTE: NOV 23, 2022@10:10 ENTRY DATE: NOV 23, 2022@10:10:14 AUTHOR: RODERICK AKHTAR EXP COSIGNER: URGENCY: STATUS: COMPLETED EMERGENCY DEPT NOTE Has ADDENDA Personal Protective Equipment (PPE): Patient was in mask on arrival, Patient was in mask on arrival, patient remained masked for entire visit, RN used PPE during every encounter with the patient, MD/PA/ASSISTANT PRODUCTION EDITOR used PPE during every encounter with the patient Nurse's note reviewed. Chief Complaint: The patient is a 52 y/o MALE complaining of: Cyst on chest TDAP/TD Immunizations Immunization Series Date Facility Reaction Info TDAP 08/11/2015 [facility]* <C> <C> See the Detailed Immunizations Health Summary Component[DIM] for Comments Covid-19 Immunizations No prior COVID-19 immunization History of present illness: Patient is a pleasant 52-year-old male presents to the emergency department with concerns for cyst on his chest. Patient has been evaluated in the primary care clinic and wound culture has been obtained. Patient was told to come to the emergency department for I&D. Allergies: Patient has answered NKA Review of Systems: 10 point ROS reviewed and otherwise negative unless stated in HPI. Past Medical History: Active problems - Computerized Problem List is the source for the followin. Tobacco dependence caused by cigarettes (SNOMED CT 51913226873765318) 2. Alcohol dependence (SNOMED CT 37408257) 3. Anxiety (SNOMED CT 20088612) 4. Herniated Lumbar Disc - h/o discectomy/surgery 5. Posttraumatic stress disorder (SNOMED CT 93870342) 6. Major depressive disorder (SNOMED CT 234693425) 7. Other Malaise and Fatigue 8. Hyperlipidemia (SNOMED CT 82911643) 9. Male erectile disorder 10. Pain in joint involving ankle and foot 11. Migraine 12. Dental abscess 13. Gambling 14. Obstructive sleep apnea of adult 15. Tinea unguium 16. Tinea pedis 17. Gastroesophageal reflux disease 18. Constipation 19. Exposure to Potentially Hazardous Substance ([facility] [id number]) - AFFF CV Risk Factors: History of tobacco use Family History: Not applicable Social History: Tobacco use: Smoker Medications: Active Outpatient Medications (excluding Supplies): Outpatient Medications Status 1) DOXYCYCLINE HYCLATE 100MG TAB TAKE ONE TABLET BY ACTIVE MOUTH TWICE A DAY FOR ABSCESS 2) FLUTICASONE PROP 50MCG 120D NASAL INHL SPRAY 1 SPRAY ACTIVE IN EACH NOSTRIL TWICE A DAY USE REGULARLY FOR RELIEF OF ALLERGIES/CONGESTION 3) NICOTINE 21MG/24HR PATCH APPLY 1 PATCH TOPICALLY ACTIVE EVERY DAY TO QUIT TOBACCO 4) NICOTINE POLACRILEX 2MG MINI LOZENGE DISSOLVE 1 MINI ACTIVE LOZENGE IN MOUTH EVERY 2 HOURS NEEDED TO QUIT TOBACCO 5) PANTOPRAZOLE NA 40MG EC TAB TAKE ONE TABLET BY MOUTH ACTIVE EVERY DAY NEEDED ONE-HALF HOUR BEFORE EATING. TAKE 30 MIN BEFORE FIRST ORAL INTAKE OF THE MORNING OR 2 HOURS AFTER LAST MEAL OF EVENING LONG STAY CONSISTENT 6) POLYETHYLENE GLYCOL 3350 ORAL PWDR TAKE 17 GRAMS BY ACTIVE MOUTH EVERY DAY NEEDED FOR CONSTIPATION *MIX IN 4 TO 8 OUNCES OF LIQUID DIRECTED*USE COVER TO MEASURE POWDER* 7) PSYLLIUM ORAL PWD TAKE 1 TEASPOONFUL BY MOUTH EVERY ACTIVE MORNING MIXED IN JUICE OR WATER DIRECTED *CAN INCREASE TO 2 TEASPOONS DAILY IF NEEDED* 8) ROSUVASTATIN CA 10MG TAB TAKE ONE TABLET BY MOUTH AT ACTIVE BEDTIME 9) SUMATRIPTAN SUCCINATE 50MG TAB TAKE ONE TABLET BY ACTIVE MOUTH EVERY DAY NEEDED MAY REPEAT AFTER 2 HOURS IF NEEDED. MAXIMUM OF 200 MG IN 24 HOURS. FOR HEADACHE Non-VA Medications Status 1) Non-VA IBUPROFEN 200MG TAB 200 MG THREE TIMES A DAY ACTIVE NEEDED 10 Total Medications Physical Exam: BP: 128/85 (11/23/2022 09:11) P: 79 (11/23/2022 09:11) R: 16 (11/23/2022 09:11) T: 97.9 F [36.6 C] (11/23/2022 09:11) O2 Sats: 97% (11/23/2022 09:11) General: well developed, well nourished, NAD Skin: Over the sternum at the level of the nipples there is a 2.5 cm round fluctuant mass with overlying erythema with punctate. No drainage. No appreciable warmth when compared to surrounding tissue. Neuro: alert and oriented, sensation intact ED Course/Medical Decision Making/Assessment: CPRS Notes/Labs Reviewed for Patient Encounter: Emergency department triage, emergency department nursing note, primary care clinic note, ultrasound notes from yesterday, wound culture results. Patient presenting with concerns for a cyst on his chest. Wound culture obtained yesterday indicates staph versus strep colonization. I&D performed successfully at bedside. Patient will be covered with antibiotics 2/2 overlying erythema suggesting cellulitic infection. Patient's vitals are otherwise stable and patient is safe for discharge with medications for symptomatic cares, return precautions and follow-up instructions. Diagnosis and Plan: 1. sebaceous cyst. I&D performed successfully at bedside. Patient discharged with prescription for doxycycline. Patient would benefit from definitive treatment of having cyst wall removal. This would be performed in general surgery outpatient clinic. Patient would require outpatient referral to the surgery clinic after he recuperates from his I&D. This will be deferred to patient's primary care team. 2. Patient was educated to all aspects of the plan and verbalized complete understanding. Patient will follow up with primary care as needed. Patient will immediately return to the emergency department should he develop any new and/or concerning symptoms. 3. Procedural details: Red flags such as infection discussed, verbal consent obtained. After patient positioning, skin cleaned with alcohol, anesthesia obtained with lidocaine/epinephrine applied in local fashion with approximately 3 cc injected, Betadine x3, sterile field obtained through draping, incision with #11 blade, Rupa clamp used to widen incision by blunt dissection, Rupa clamp used to break up cyst loculations, cyst contents expressed through incision, approximately 1.5 cc of pustulant and serosanguineous fluid expressed, Rupa clamp used to place iodine impregnated iodoform packing into abscess, approximately 3 cm of packing placed and covered with gauze/Medipore tape. Minimal blood loss. No complications. Preprocedure diagnosis: Abscess. Postprocedure diagnosis: Same. Disposition: Condition on discharge: No change Provider determined patient ready for discharge at: Nov@10:13 Patient instructed to call [place] Primary Clinic in other if no improvement. The above note was dictated using voice recognition software. While proofreading attempts were made to verify accuracy, it is possible that nonsensical phrases and words are still contained within the document. Please direct all questions regarding content to the original author. /michelle/ RODERICK AKHTAR PA-C PHYSICIAN CHRISTIAN COUNSELOR Signed: 11/23/2022 10:17 Receipt Acknowledged By: 11/23/2022 15:56 /michelle/ KIMO ROSENBERG DNP 11/23/2022 ADDENDUM STATUS: COMPLETED Routing to RN for assistance to follow up /KIMO Mack DNP Signed: 11/23/2022 15:57 Receipt Acknowledged By: 11/23/2022 17:10 /michelle/ SERGE ORTIZ RN REGISTERED NURSE 11/23/2022 ADDENDUM STATUS: COMPLETED Scheduled RN phone follow-up to check status on 11/27/2022. We will enter general surgery consult at that time. /payal ORTIZ RN REGISTERED NURSE Signed: 11/23/2022 17:12 RODERICK AKHTAR [facility] Nov 23, 2022 10:02 AM EMERGENCY DEPT EDUCATION NOTE: LOCAL TITLE: EMERGENCY DEPT DISCHARGE INSTRUCTIONS STANDARD TITLE: EMERGENCY DEPT EDUCATION NOTE DATE OF NOTE: NOV 23, 2022@10:02:19 ENTRY DATE: NOV 23, 2022@10:02:19 AUTHOR: RODERICK AKHTAR EXP COSIGNER: URGENCY: STATUS: COMPLETED DISCHARGE INSTRUCTIONS IMPORTANT: We examined and treated you today on an emergency basis only. This was not a substitute for, or an effort to provide, comprehensive medical care. In most cases, you must let your healthcare provider check you again. Tell your healthcare provider about any new or lasting problems. We cannot recognize and treat all injuries or illnesses in one Emergency Department visit. After you leave, you should follow the instructions below. You were treated today by Roderick Luis, PA-C. Special Information This Information Is About Your Follow Up Care Call your Primary Care Team if you have any problems or concerns. You can reach them by calling . Future Appointments [none] This Information Is About Your Illness and Diagnosis WOUND PACKING CHANGE DONE BY YOUR HEALTH CARE PROVIDER Your health care provider changed the gauze packing in your wound. Your wound is packed with sterile gauze to keep the wound open, allowing pus to drain and your wound to heal from deep inside before your skin heals together. One end of the gauze will remain inside your wound and the other end will be left sticking out through the cut in your skin. This prevents your skin from healing over a pocket of infection. The gauze packing is initially changed from twice a day to every other day. Your health care provider will continue to pack your wound until it looks healthy and is almost healed. It is important to keep all follow-up appointments. How can I manage my wound at home? -Leave the packing inside your wound in place. You may change the outside dressing as needed, if it gets soiled with pus. -Keep your wound and dressings clean and dry at all times. -If your packing comes out before your next scheduled appointment, call your health care provider right away. -If you were prescribed pain medicine, take some before your next dressing change. Contact your health care provider as soon as possible if you have: -increased drainage or bleeding from the wound. -increased redness, or swelling from the wound. -red streaks from the wound. -foul smell or pus from the dressing or wound. -chills or fever over 101 degrees F. -increased pain in your wound. -any new problems or concerns. This is Information About Your New Medications - Start taking as prescribed. DOXYCYCLINE (Vibramycin, Doryx, Monodox, Vibra-Tabs) Take this medicine as directed. WARNING: Do not take this medicine if you are or breast-feeding. This medicine can cause problems in a woman and the fetus. Doxycycline is an antibiotic used to treat infections caused by bacteria. It kills bacteria or prevents it from growing inside your body. This medicine may be used for other reasons, as prescribed by your healthcare provider. Side effects may include: -diarrhea -sun sensitivity (some people will sunburn more easily) -upset stomach, nausea or vomiting -dark-colored tongue (harmless and will go away when you stop taking this medicine) Other side effects may occur, but are not as common. An upset stomach is not a sign of allergy. Allergy would show up as rash or itching, facial or throat swelling, wheezing or shortness of breath. Please follow these instructions: -Space your medicine doses evenly throughout the day. This medicine works best if there is a constant amount in your blood. -Do not use this medicine after the expiration date on the bottle, if it has changed color, tastes different, or stored in area that was too wet or warm. Serious side effects can occur. Throw away the medicine and call your healthcare provider. -If you have diabetes, know that doxycycline can cause false test results when testing your urine for sugar. -Swallow the capsule form of this medicine whole with a full 8-ounce glass of water. -Take this medicine until gone, even if you are feeling better. -Protect your skin from the sun. Wear sunscreen and protective clothes when outside. You may sunburn more easily 2 weeks to 2 months after you've stopped taking this medicine. -If you are a female taking a control pill (oral contraceptive), know that antibiotic medicines may cause the control pill to be less effective at preventing a . -Store the tablet or capsule form of this medicine away from heat, moisture or direct light. -Store the liquid form of this medicine in the refrigerator. Shake the liquid well before each use. -If you miss a dose, take it as soon as possible. If it is almost time for your next dose, skip the missed dose. Do not double the doses. -Talk with your healthcare provider before taking any other medicines (including vitamins and herbals) as you may require additional monitoring. Call your healthcare provider if you have: -have any sign of allergy. -have no improvement after you've taken all the medicine. -are or suspect you are . -have any sign of a new infection (fever, general aches, chills, unusual tiredness or weakness). -have a yellow color to your eyes or skin; or dark colored urine. -have any new or bothersome symptoms. IMPORTANT MEDICATION INFORMATION -Your medication list includes any medications that were recently prescribed but not filled by the Pharmacy (PENDING Medicines). -Included are any known ACTIVE Medicines. Please review this list to make sure it is accurate, if this list does not match the current medications you are taking please follow-up with your Primary Care Team to have your Medication List reviewed. Pending Medications DOXYCYCLINE HYCLATE 100MG TAB \ Sig: TAKE ONE TABLET BY MOUTH TWICE A DAY\Indication: FOR ABSCESS Active Medications FLUTICASONE PROP 50MCG 120D NASAL INHL SPRAY 1 SPRAY IN EACH NOSTRIL TWICE A DAY USE REGULARLY FOR RELIEF OF ALLERGIES/CONGESTION IBUPROFEN TAB 200 MG THREE TIMES A DAY NEEDED (Non-VA Medication) NICOTINE 21MG/24HR PATCH APPLY 1 PATCH TOPICALLY EVERY DAY TO QUIT TOBACCO NICOTINE POLACRILEX 2MG MINI [...] ORAL PWDR TAKE 17 GRAMS BY MOUTH EVERY DAY NEEDED FOR CONSTIPATION *MIX IN 4 TO 8 OUNCES OF LIQUID DIRECTED*USE COVER TO MEASURE POWDER* PSYLLIUM ORAL PWD TAKE 1 TEASPOONFUL BY MOUTH EVERY MORNING MIXED IN JUICE OR WATER DIRECTED *CAN INCREASE TO 2 TEASPOONS DAILY IF NEEDED* ROSUVASTATIN CA 10MG TAB TAKE ONE TABLET BY MOUTH AT BEDTIME SUMATRIPTAN SUCCINATE 50MG TAB TAKE ONE TABLET BY MOUTH EVERY DAY NEEDED MAY REPEAT AFTER 2 HOURS IF NEEDED. MAXIMUM OF 200 MG IN 24 HOURS. FOR HEADACHE Medications Medications in the last 90 days [none] YOU ARE THE MOST IMPORTANT FACTOR IN YOUR RECOVERY. Follow the above instructions carefully. Take your medicines as prescribed. If you do not understand any of your medicines, please ask questions. If you have any outstanding tests from the emergency department, please contact your provider to review them in the next 3-5 days. If you have new symptoms, feel worse, or are not getting better as discussed, call to discuss your health questions and arrange for follow-up care, or return to the Emergency Room IF YOU ARE EXPERIENCING A MEDICAL EMERGENCY CALL 911 OR GO TO THE NEAREST EMERGENCY ROOM /michelle/ RODERICK AKHTAR PA-C PHYSICIAN CHRISTIAN COUNSELOR Signed: 11/23/2022 10:02 RODERICK AKHTAR [facility] Nov 23, 2022 09:41 AM NURSING EMERGENCY DEPT NOTE: LOCAL TITLE: EMERGENCY DEPT NURSING NOTE STANDARD TITLE: NURSING EMERGENCY DEPT NOTE DATE OF NOTE: NOV 23, 2022@09:41 ENTRY DATE: NOV 23, 2022@09:41:36 AUTHOR: DARREN ZHAO EXP COSIGNER: URGENCY: STATUS: COMPLETED Nursing Focused Assessment: CHIEF COMPLAINT: Patient presents with complaint of a cyst on his chest for a couple of weeks. Allergies/ADR:Patient has answered NKA Additional allergies not listed: Vital Signs * Blood Pressure: 128/85 (11/23/2022 09:11) Heart Rate: 79 (11/23/2022 09:11) Respirations: 16 (11/23/2022 09:11) Temperature: 97.9 F [36.6 C] (11/23/2022 09:11) Pain: 7 (11/23/2022 09:11) Weight: 211.2 lb [95.80 kg] (11/07/2022 13:38) O2 Sats: 97% (11/23/2022 09:11) Tobacco use: No Alcohol use: No Any drugs besides what is prescribed or over the counter: No ABUSE/NEGLECT: No evidence of abuse/neglect REVIEW OF SYSTEM-FOCUSED ASSESSMENT Neurological: Alert Mentation Oriented to: Person, Place, Time, Location INTERVENTIONS: Oriented to room and bed controls Bed in low position and locked /es/ DARREN ZHAO, MSN, RN REGISTERED NURSE Signed: 11/23/2022 09:43 DARREN ZHAO [facility] Nov 23, 2022 09:12 AM NURSING EMERGENCY DEPT TRIAGE NOTE: LOCAL TITLE: EMERGENCY DEPARTMENT NURSING TRIAGE NOTE STANDARD TITLE: NURSING EMERGENCY DEPT TRIAGE NOTE DATE OF NOTE: NOV 23, 2022@09:12 ENTRY DATE: NOV 23, 2022@09:12:58 AUTHOR: BRIGETTE BURTON COSIGNER: URGENCY: STATUS: COMPLETED Emergency Department/Urgent Care Center Triage Patient age:52 Sex: MALE On arrival patient was: AMBULATORY Patient phone number: Allergies: Patient has answered NKA Subjective/Chief Complaint: The pt reports a cyst on his chest for the last two weeks. The pt reports he was seen at the [facility] and referred to the ED for further evaluation. Objective: The pt is alert and oriented. No acute distress noted. The patient is not a fall risk. Vital Signs * Blood Pressure: 128/85 (11/23/2022 09:11) Heart Rate: 79 (11/23/2022 09:11) Respirations: 16 (11/23/2022 09:11) Temperature: 97.9 F [36.6 C] (11/23/2022 09:11) Pain: 7 (11/23/2022 09:11) Weight: 211.2 lb [95.80 kg] (11/07/2022 13:38) O2 Sats: 97% (11/23/2022 09:11) Emergency Severity Index (ROJAS) level Level 4 Current Medications: Active Outpatient Medications (including Supplies): Active [...] A DAY ACTIVE NEEDED 9 Total Medications Current Problems: Tobacco dependence caused by cigarettes Alcohol dependence ([facility] 12603963) Anxiety ([facility] 71849252) Herniated Lumbar Disc (ICD-9-CM 722.10) Posttraumatic stress disorder ([facility] 08855Kitbo depressive disorder ([facility] 523858695) Other Malaise and Fatigue (ICD-9-CM 780.Hyperlipidemia ([facility] 86976842) Male erectile disorder (ICD-9-CM 302.72)Pain in joint involving ankle and foot (ICD-9-CM 719.47) Migraine ([facility] 52890287) Dental abscess ([facility] 518878532) Gambling ([facility] 913034355) Obstructive sleep apnea of adult ([facility] 2536887480524) Tinea unguium ([facility] 596263237) Tinea pedis ([facility] 9116526) Gastroesophageal reflux disease ([facility] 235Constipation ([facility] 42702708) Exposure to Potentially Hazardous Substa Identification of Seniors at Risk (ISAR):* Defer screen 50 Suicide Screen: Moore Suicide Severity Rating Scale (C-SSRS) screener 1. Over the past month, have you wished you were or wished you could go to sleep and not wake up? No 2. Over the past month, have you had any actual thoughts of killing yourself? No 3. Over the past month, have you been thinking about how you might do this? Response not required due to responses to other questions. 4. Over the past month, have you had these thoughts and had some intention of acting on them? Response not required due to responses to other questions. 5. Over the past month, have you started to work out or worked out the details of how to kill yourself? Response not required due to responses to other questions. 6. If yes, at any time in the past month did you intend to carry out this plan? Response not required due to responses to other questions. 7. In your lifetime, have you ever done anything, started to do anything, or prepared to do anything to end your life (for example, collected pills, obtained a gun, gave away valuables, went to the roof but didn't jump)? No 8. If YES, was this within the past 3 months? Response not required due to responses to other questions. /michelle/ MADIHA HESTER RN REGISTERED NURSE Signed: 11/23/2022 09:14 MADIHA BURTON [facility]
--- OUTSIDE RECORDS SUMMARY | 2023-08-01 12:25 | XMS_ITS | Encounter Summary ---
Author Name [facility] Organization [facility] Address [address], [place] [address] Care Team Providers Care Greens Picker Name Role Phone KRISTY WIGGINS Primary Care [...] (PPO) FEP BASIC PLUS ONE 2023 113 [id number] Lanre CASTANEDA PATIENT [place] [place] FEP PREFERRED PROVIDER ORGANIZAT ION (PPO) FEP BASIC PLUS ONE 2023 113 [id number] 84 Lanre CASTANEDA PATIENT [employer] FEP RX PRESCRIPT ION FEPRX Feb 17, 2017 [id number] Lanre CASTANEDA PATIENT Selected Encounter This section includes the information on record at [place] for the Encounter. Date/Time Encounter Type Encounter Description Reason Pro vider Source May 29, 2023 12:00 AM Outpatient Encounter EVENT (HISTORICAL) IHE Encounter Template Text not used by [place] Plan of Treatment: Future Appointments (+ 6 months) and Future Tests (+/- 45 days) The Plan of Treatment section includes future care activities for the patient from all [place] treatment[facility]ovant healthities. This section includes future appointments and future orders which are active, pending or scheduled. Future Appointments This section includes appointments that were scheduled to occur 6 months from the date of the Encounter, up to a maximum of 20 appointments. The data comes from all [facility] facilities. Appointment Date/Time Appointment Type Appointme nt Facility Name Jun 05, 2023 11:30 AM AMBULATORY - MEDICINE [facility] June 25, 2023 03:00 PM AMBULATORY - NONE [facility] Nov 28, 2023 02:40 PM AMBULATORY - SURGERY [facility] Active, Pending, and Scheduled Orders This section includes a listing of several types of active, pending, and scheduled orders, including clinic medications orders, diagnostic test orders, procedure orders and consult orders; where the start date of the order is 45 days before the date of the Encounter or 45 days after the date of theEncounter. The data comes from all [facility]. Test Date/Time Test Type Test Details Facility Name May 29, 2023 03:10 PM Consult Order ENT OUTPT Cons Con [facility] Lab Results: +/- 30 days of the encounter This section includes the Chemistry and Hematology Lab Results on record with [place] for the patient. Radiology Reports and Pathology Reports are provided separately, in subsequent sections. Lab Results This section contains the Chemistry/Hematology Results that were resulted 30 days before or 30 daysafter the date of the Encounter. Date/Time Source Result Type Result - Unit Interpretation Reference Range Comment May 29, 2023 03:25 PM [facility] HEMOGLOBIN A1C Specimen Type: BLOOD Comment: Values [...] May 29, 2023 02:58 PM Reporting Lab: [facility] [id number] Performing Lab: [facility] [address] HEMOGLOBIN A1C 5.2 4.0-6.0 May 29, 2023 03:25 PM [facility] TSH W/REFLEX TO FREE T4 Specimen Type: PLASMA Comment: Elevated triglyceride result from a non-fasting specimen should be interpreted with caution. A fasting panel is recommended for accurate triglycerides when trigs are >200 from a non-fasting specimen. Ordering Provider: ANA WIGGINS Report Released Date/Time: May 29, 2023 02:58 PM Reporting Lab: [facility] [address] Performing Lab: [facility] [address] TSH 1.66 u[IU]/mL 0.35-4.94 May 29, 2023 03:25 PM [facility]ER[facility]LE [facility] LIPID PANEL,NON-FASTING Specimen Type: PLASMA Comment: Elevated triglyceride result from a non-fasting specimen should be interpreted with caution. A fasting panel is recommended for accurate triglycerides when trigs are >200 from a non-fasting specimen. Ordering Provider: ANA WIGGINS Report Released Date/Time: May 29, 2023 02:58 PM Reporting Lab: [facility] [address] Performing Lab: [facility] [address] CHOLESTEROL 268 mg/dL H <199 .HDL 31 [...] May 29, 2023 02:58 PM Reporting Lab: [facility] [address] Performing Lab: [facility] [address] CREATININE 0.8 mg/dL 0.7-1.2 UREA NITROGEN 12 mg/dL 8-26 GLUCOSE 88 mg/dL 70-100 SODIUM 134 mmol/L L 136-145 POTASSIUM 4.1 mmol/L 3.5-5.1 CHLORIDE 105 mmol/L 98-107 CO2 20 mmol/L L 22-29 CALCIUM 9.8 mg/dL 8.4-10.2 MAGNESIUM 1.9 mg/dL 1.6-2.6 ANION GAP 9 mmol/L 5-15 .CREAT EGFR(CKD-EPI) >90 >60 May 29, 2023 03:25 PM [facility] CBC & DIFF Specimen Type: BLOOD Comment: Automated Differential Performed Ordering Provider: ANA WIGGINS Report Released Date/Time: May 29, 2023 02:58 PM Reporting Lab: [facility] [id number] Performing Lab: [facility] [address] WBC 8.59 10*3/uL 4.0-11.0 RBC 5.68 10*6/uL [...] and tobacco- related health factors from the [place] facility where the Encounter took place. Current Smoking Status This section includes the most current smoking, or tobacco-related health factor, from the [place] facility where the Encounter took place. Date/Time Current Smoking Status Comment Fede amaya Apr 09, 2017 08:20 AM CURRENT TOBACCO USER [facility] Tobacco Use History This section includes a history of the smoking, or tobacco-related health factors, that were collected on or before the date of the Encounter. The data comes from the [place] facility where the Encounter took place. Date/Time Smoking Status/Tobacco Use Comment F acility Aug 02, 2015 03:27 PM CURRENT TOBACCO USER [facility] Oct 15, 2013 03:00 PM CURRENT TOBACCO USER [facility] Dec 10, 2012 12:12 PM CURRENT TOBACCO USER [facility] Feb 14, 2012 01:04 PM CURRENT TOBACCO USER [facility] Sep 25, 2010 01:00 PM CURRENT TOBACCO USER [facility] Jan 05, 2008 09:13 AM PATIENT IS TOBACCO USER [facility] Apr 22, 2007 03:08 PM CURRENT TOBACCO USER [facility] June 25, 2006 01:48 PM CURRENT TOBACCO USER [facility] Advance Directives: All historical and current Section Date Range: From patient's date of to the date document was created. This section includes ALL of a patient's completed or amended [place] Advance and Rescinded Directives. The entries below indicate that a directive exists for the patient, but an actual copy is not included with this document. The data comes from all [facility]. Date Advance Directives Provider Source Jan 29, 2017 ADVANCE DIRECTIVE DISCUSSION ALEX KURTZ [facility] Radiology Reports: +/- 30 days of [...] the Encounter. The data comes from all [place] treatment facilities. Date/Time Radiology Report Provider Source June 25, 2023 02:57 PM CHEST 2 VIEWS PA A ND LAT: SALEEM CASTANEDA [id number] -[id number] M Exm Date: JUNE 25, 2023@14:57 Req Phys: NALLUSAMY,VASUMATHI Pat Loc: [facility] RN ( Img Loc: [facility] Service: [place] [address] (Case [id number] COMPLETE) CHEST 2 VIEWS PA AND LAT (RAD Detailed) CPT:88447 Reason for Study: cough - follow up pneumonia Clinical History: [place] IS NOT under investigation for COVID-19 or is COVID-19 negative follow up pneumonia Responsible provider name and phone number to notify for critical findings if other than user placing the order and pager listed below: User placing orders pager: Tu [phone] LAST CREATININE 0.8 (05/29/23) Report Status: Verified Date Reported: JUNE 25, 2023 Date Verified: JUNE 25, 2023 Automatic Pad Making Machine Operator E-Sig:/ES/HUMBERTO CR MD Report: X-RAY EXAM OF chest, PA and lateral INDICATION: Reason for Study: cough - follow up pneumonia IS NOT under investigation for COVID-19 or is COVID-19 negative follow up pneumonia Responsible provider name and phone number to notify for critical findings if other than user placing the order and pager listed below: User placing orders pager: Tu [phone] LAST CREATININE 0.8 (05/29/23) COMPARISON: 05/29/2023 Impression: [...] Primary Interpreting Staff: HUMBERTO CR MD, RADIOLOGIST (Automatic Pad Making Machine Operator) /HUMBERTO YANCEY [facility] May 29, 2023 03:22 PM CHEST 2 VIEWS PA A ND LAT: SALEEM CASTANEDA [id number] -1970 M Exm Date: MAY 29, 2023@15:22 Req Phys: NALLUSAMY,VASUMATHI Pat Loc: [facility]ED [facility]NAGER (Req'g Loc Img Loc: [facility] Service: Unknown (Case [id number] COMPLETE) CHEST 2 VIEWS PA AND LAT (RAD Detailed) CPT:41131 Reason for Study: cough Clinical History: [place] IS NOT under investigation for COVID-19 or is COVID-19 negative cough Responsible provider name and phone number to notify for critical findings if other than user placing the order and pager listed below: User placing orders pager: LAST CREATININE____ Report Status: Verified Date Reported: MAY 29, 2023 Date Verified: MAY 29, 2023 Automatic Pad Making Machine Operator E-Sig:/ES/GUDELIA HELMS MD Report: EXAMINATION: CHEST 2 VIEWS PA AND LAT 05/29/2023 3:22 PM INDICATION: cough Impression: Heart size and pulmonary vascularity within normal limits. No pulmonary infiltrate or pleural effusion. Subtle blunting of the left posterior costophrenic angle seen on the lateral view. No comparison chest x-ray. Primary Interpreting Staff: GUDELIA HELMS MD, RADIOLOGIST (Automatic Pad Making Machine Operator) /GUDELIA SINGH [facility]
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
--- OUTSIDE RECORDS SUMMARY | 2023-08-01 12:25 | XMS_ITS | Encounter Summary ---
Author Name [facility] Organization [facility] Address [address], [place] [address] Care Team Providers Care Inbound Ingredient Logistics Specialist Name Role Phone KRISTY WIGGINS Primary Care [...] (PPO) FEP BASIC PLUS ONE 2023 113 [id number] 84 Lanre CASTNAEDA PATIENT [place] FEP PREFERRED PROVIDER ORGANIZAT ION (PPO) FEP BASIC PLUS ONE 2023 113 [id number] 84 Lanre CASTANEDA PATIENT [employer] FEP RX PRESCRIPT ION FEPRX Feb 17, 2017 [id number] Lanre CASTANEDA PATIENT Selected Encounter This section includes the information on record at [place] for the Encounter. Date/Time Encounter Type Encounter Description Reason Provider Source May 29, 2023 02:54 PM OFFICE O/P EST MOD 30 MIN PRIMARY CARE/MEDICINE ICD-10-CM J01.90 Acute sinusitis, unspecified NALLUSAMY,ZACH CHARO E Encounter Template Text not used by [place] Assessments - Encounter Diagnoses This section includes the primary and secondary diagnoses documented for the Encounter. Date/Time Primary/Secondary Diagnosis Diagnosis Name Provider Source May 29, 2023 02:54 PM PRIMARY Acute sinusitis, unspecified [facility] May 29, 2023 02:54 PM SECONDARY Alcohol abuse, uncomplicated NALLUSAMY,[facility] May 29, 2023 02:54 PM SECONDARY Constipation, unspecified NALLUSAMY,[facility] May 29, 2023 02:54 PM SECONDARY Encounter for general adult medical exam w abnormal findings [facility] May 29, 2023 02:54 PM SECONDARY Gastro-esophageal reflux disease without esophagitis NALLUSAMY,[facility] May 29, 2023 02:54 PM SECONDARY Generalized anxiety disorder NALLUSAMY,[facility] May 29, 2023 02:54 PM SECONDARY Hyperlipidemia, unspecified NALLUSAMY,[facility] May 29, 2023 02:54 PM SECONDARY Major depressive disorder, recurrent, moderate NALLUSAMY,[facility] May 29, 2023 02:54 PM SECONDARY Migraine w/o aura, intractable, without status migrainosus NALLUSAMY,[facility] May 29, 2023 02:54 PM SECONDARY Obstructive sleep apnea (adult) (pediatric) NALLUSAMY,[facility] May 29, 2023 02:54 PM SECONDARY Post-traumatic stress disorder, chronic NALLUSAMY,[facility] May 29, 2023 02:54 PM SECONDARY Unspecified chronic bronchitis NALLUSAMY,[facility] Plan of Treatment: Future Appointments (+ 6 months) and Future Tests (+/- 45 days) The Plan of Treatment section includes future care activities for the [place] [facility] [place] [facility] [place] This section includes future appointments and future orders which are active, pending or scheduled. Future Appointments This section includes appointments that were scheduled to occur 6 months from the date of the Encounter, up to a maximum of 20 appointments. The data comes from all [facility]. Appointment Date/Time Appointment Type Appointme nt Facility Name Jun 05, 2023 11:30 AM AMBULATORY - MEDICINE [facility] June 25, 2023 03:00 PM AMBULATORY - NONE [facility] Nov 28, 2023 02:40 PM AMBULATORY - SURGERY [facility] Active, Pending, and Scheduled Orders This section includes a listing of several types of active, pending, and scheduled orders, including clinic medications orders, diagnostic test orders, procedure orders and consult orders; where the start date of the order is 45 days before the date of the Encounter or 45 days after the date of theEncounter. The data comes from all [place] treatment facilities. Test Date/Time Test Type Test Details Facility Name May 29, 2023 03:10 PM Consult Order ENT OUTPT Cons Con s[facility] Lab Results: +/- 30 days of the encounter This section includes the Chemistry and Hematology Lab Results on record with [place] for the patient. Radiology Reports and Pathology Reports are provided separately, in subsequent sections. Lab Results This section contains the Chemistry/Hematology Results that were resulted 30 days before or 30 daysafter the date of the Encounter. Date/Time Source Result Type Result - Unit Interpretation Reference Range Comment May 29, 2023 03:25 PM [facility] HEMOGLOBIN A1C Specimen Type: BLOOD Comment: Values [...] May 29, 2023 02:58 PM Reporting Lab: [facility] [id number] Performing Lab: [facility] [id number] HEMOGLOBIN A1C 5.2 4.0-6.0 May 29, 2023 03:25 PM CHERELLE TRIPP TSH W/REFLEX TO FREE T4 Specimen Type: PLASMA Comment: Elevated triglyceride result from a non-fasting specimen should be interpreted with caution. A fasting panel is recommended for accurate triglycerides when trigs are >200 from a non-fasting specimen. Ordering Provider: ANA WIGGINS Report Released Date/Time: May 29, 2023 02:58 PM Reporting Lab: [facility] [id number] Performing Lab: [facility] [id number] TSH 1.66 u[IU]/mL 0.35-4.94 May 29, 2023 03:25 PM CHERELLE IRVING LIPID PANEL,NON-FASTING Specimen Type: PLASMA Comment: Elevated triglyceride result from a non-fasting specimen should be interpreted with caution. A fasting panel is recommended for accurate triglycerides when trigs are >200 from a non-fasting specimen. Ordering Provider: ANA WIGGINS Report Released Date/Time: May 29, 2023 02:58 PM Reporting Lab: [facility] [id number] Performing Lab: [facility] [address] CHOLESTEROL 268 mg/dL H <199 .HDL 31 [...] May 29, 2023 02:58 PM Reporting Lab: [facility] [id number] Performing Lab: [facility] [address] CREATININE 0.8 mg/dL 0.7-1.2 UREA NITROGEN 12 mg/dL 8-26 GLUCOSE 88 mg/dL 70-100 SODIUM 134 mmol/L L 136-145 POTASSIUM 4.1 mmol/L 3.5-5.1 CHLORIDE 105 mmol/L 98-107 CO2 20 mmol/L L 22-29 CALCIUM 9.8 mg/dL 8.4-10.2 MAGNESIUM 1.9 mg/dL 1.6-2.6 ANION GAP 9 mmol/L 5-15 .CREAT EGFR(CKD-EPI) >90 >60 May 29, 2023 03:25 PM [facility] CBC & DIFF Specimen Type: BLOOD Comment: Automated Differential Performed Ordering Provider: ANA WIGGINS Report Released Date/Time: May 29, 2023 02:58 PM Reporting Lab: [facility] [phone] Performing Lab: [facility] [phone] WBC 8.59 10*3/uL 4.0-11.0 RBC 5.68 10*6/uL [...] and tobacco- related health factors from the [place] facility where the Encounter took place. Current Smoking Status This section includes the most current smoking, or tobacco-related health factor, from the [place] facility where the Encounter took place. Date/Time Current Smoking Status Comment Fede amaya Apr 09, 2017 08:20 AM CURRENT TOBACCO USER [facility] Tobacco Use History This section includes a history of the smoking, or tobacco-related health factors, that were collected on or before the date of the Encounter. The data comes from the [place] facility where the Encounter took place. Date/Time Smoking Status/Tobacco Use Comment F acility Aug 02, 2015 03:27 PM CURRENT TOBACCO USER [facility] Oct 15, 2013 03:00 PM CURRENT TOBACCO USER [facility] Dec 10, 2012 12:12 PM CURRENT TOBACCO USER [facility] Feb 14, 2012 01:04 PM CURRENT TOBACCO USER [facility] Sep 25, 2010 01:00 PM CURRENT TOBACCO USER [facility] Jan 05, 2008 09:13 AM PATIENT IS TOBACCO USER [facility] Apr 22, 2007 03:08 PM CURRENT TOBACCO USER [facility] June 25, 2006 01:48 PM CURRENT TOBACCO USER [facility] Advance Directives: All historical and current Section Date Range: From patient's date of to the date document was created. This section includes ALL of a patient's completed or amended [place] Advance and Rescinded Directives. The entries below indicate that a directive exists for the patient, but an actual copy is not included with this document. The data comes from all [facility]. Date Advance Directives Provider Source Jan 29, 2017 ADVANCE DIRECTIVE DISCUSSION ALEX KURTZ [facility] Radiology Reports: +/- 30 days of the [...] the Encounter. The data comes from all [place] treatment facilities. Date/Time Radiology Report Provider Source June 25, 2023 02:57 PM CHEST 2 VIEWS PA A ND LAT: SALEEM CASTANEDA [id number] -[id number] M Exm Date: JUNE 25, 2023@14:57 Req Phys: NALLUSAMY,VASUMATHI Pat Loc: [facility] RN ( Img Loc: [facility] RADIOLOGY Service: [place] [address] (Case [id number] COMPLETE) CHEST 2 VIEWS PA AND LAT (RAD Detailed) CPT:37065 Reason for Study: cough - follow up pneumonia Clinical History: Indiahoma IS NOT under investigation for COVID-19 or is COVID-19 negative follow up pneumonia Responsible provider name and phone number to notify for critical findings if other than user placing the order and pager listed below: User placing orders pager: Tu [phone] LAST CREATININE 0.8 (05/29/23) Report Status: Verified Date Reported: JUNE 25, 2023 Date Verified: JUNE 25, 2023 Sack Keeper E-Sig:/ES/HUMBERTO CR MD Report: X-RAY EXAM OF chest, PA and lateral INDICATION: Reason for Study: cough - follow up pneumonia Indiahoma IS NOT under investigation for COVID-19 or is COVID-19 negative follow up pneumonia Responsible provider name and phone number to notify for critical findings if other than user placing the order and pager listed below: User placing orders pager: Nallusamy [phone] LAST CREATININE 0.8 (05/29/23) COMPARISON: 05/29/2023 Impression: [...] Primary Interpreting Staff: HUMBERTO CR MD, RADIOLOGIST (Sack Keeper) /HUMBERTO YANCEY [facility] May 29, 2023 03:22 PM CHEST 2 VIEWS PA A ND LAT: SALEEM CASTANEDA [id number] -[id number] M Ex Date: MAY 29, 2023@15:22 Req Phys: ALIREZASAFREDVASUMATHI Pat Loc: [facility] 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 (Req'g Loc Img Loc: [facility] RADIOLOGY Service: Unknown (Case [id number] COMPLETE) CHEST 2 VIEWS PA AND LAT (RAD Detailed) CPT:91561 Reason for Study: cough Clinical History: [place] IS NOT under investigation for COVID-19 or is COVID-19 negative cough Responsible provider name and phone number to notify for critical findings if other than user placing the order and pager listed below: User placing orders pager: LAST CREATININE____ Report Status: Verified Date Reported: MAY 29, 2023 Date Verified: MAY 29, 2023 Sack Keeper E-Sig:/ES/GUDELIA HELMS MD Report: EXAMINATION: CHEST 2 VIEWS PA AND LAT 05/29/2023 3:22 PM INDICATION: cough Impression: Heart size and pulmonary vascularity within normal limits. No pulmonary infiltrate or pleural effusion. Subtle blunting of the left posterior costophrenic angle seen on the lateral view. No comparison chest x-ray. Primary Interpreting Staff: GUDELIA HELMS MD, RADIOLOGIST (Sack Keeper) /RTS GUDELIA HELMS [facility] Encounter Notes: All associated encounter notes This section contains the clinical notes associated to the Encounter. Date/Time Encounter Note(s) Provider Source May 29, 2023 03:01 PM H & P NOTE: LOCAL TITLE: [facility] ANNUAL VISIT STANDARD TITLE: H & P NOTE DATE OF NOTE: MAY 29, 2023@15:01 ENTRY DATE: MAY 29, 2023@15:01:57 AUTHOR: KRISTY WIGGINS COSIGNER: URGENCY: STATUS: COMPLETED [facility] ANNUAL VISIT Has ADDENDA Today's Nurse check-in note reviewed. Seen in clinic today respecting current PPE guidelines. Preferred name-Saleem Chief complaint: An established patient here for Wellness and preventive medicine visit. He has URI and cough for more than 3 weeks #Tobacco dependence-not smoking - quit - 6 months ago #Migraine-gets once per week, extra strength Tylenol and Excedrin helps as abortive treatment, he also has sumatriptan #GERD-denies any heartburn, dysphagia or sensation of globus. He takes PPI had endoscopy with GI in 2021 #IBS with constipation- on MiraLAX-symptoms stable. #Allergic rhinitis-has an exacerbation now as he got a panic attack with Claritin d he quit taking it , he is on Flonase. #HLD-on rosuvastatin Acute ------ 3 weeks of URI with cough , congestion and purulent post nasal drip . Still has a productive cough and has chest tightness Review of Systems Denies chest pain, shortness of breath, recent significant weight changes, rash, bowel or bladder changes, new joint pain or swelling, headaches, lightheadedness, vision changes, new numbness or tingling or weakness. Remainder of the ROS is negative, except as above. Past Medical History Active problems - Computerized Problem List is the source for the followin. Tobacco dependence caused by cigarettes (SNOMED CT 88840984078610364) 2. Alcohol dependence (SNOMED CT 59653958) 3. Anxiety (SNOMED CT 03493608) 4. Herniated Lumbar Disc - h/o discectomy/surgery 5. Posttraumatic stress disorder (SNOMED CT 99007178) 6. Major depressive disorder (SNOMED CT 645614532) 7. Other Malaise and Fatigue 8. Hyperlipidemia (SNOMED CT 97131195) 9. Male erectile disorder 10. Pain in joint involving ankle and foot 11. Migraine 12. Dental abscess 13. Gambling 14. Obstructive sleep apnea of adult 15. Tinea unguium 16. Tinea pedis 17. Gastroesophageal reflux disease 18. Constipation Allergies: Patient has answered NKA Medications: Active Outpatient Medications (including Supplies): Active Outpatient Medications Status 1) CETIRIZINE HCL 10MG TAB TAKE ONE TABLET BY MOUTH ACTIVE (S) EVERY DAY FOR ALLERGIES 2) FLUTICASONE PROP 50MCG 120D NASAL INHL SPRAY 1 SPRAY HOLD IN EACH NOSTRIL TWICE A DAY USE REGULARLY FOR RELIEF OF ALLERGIES/CONGESTION 3) LACTOBACILLUS ACIDOPHILUS TAB TAKE 1 TABLET BY MOUTH ACTIVE (S) TWICE A DAY FOR SUPPLEMENTATION 4) NICOTINE 21MG/24HR PATCH APPLY 1 PATCH TOPICALLY ACTIVE EVERY DAY TO QUIT TOBACCO 5) NICOTINE POLACRILEX 2MG MINI LOZENGE DISSOLVE 1 MINI ACTIVE LOZENGE IN MOUTH EVERY 2 HOURS NEEDED TO QUIT TOBACCO 6) PANTOPRAZOLE NA 40MG EC TAB TAKE ONE TABLET BY MOUTH ACTIVE (S) EVERY DAY NEEDED FOR STOMACH ACID - TAKE ON EMPTY STOMACH 7) POLYETHYLENE GLYCOL 3350 ORAL PWDR TAKE 17 GRAMS BY ACTIVE (S) MOUTH EVERY DAY NEEDED FOR CONSTIPATION *MIX IN 4 TO 8 OUNCES OF LIQUID DIRECTED*USE COVER TO MEASURE POWDER* 8) ROSUVASTATIN CA 10MG TAB TAKE ONE TABLET BY MOUTH AT ACTIVE (S) BEDTIME 9) SUMATRIPTAN SUCCINATE 50MG TAB TAKE ONE TABLET BY ACTIVE (S) MOUTH EVERY DAY NEEDED FOR HEADACHE - MAY REPEAT ONCE AFTER 2 HOURS IF NEEDED. MAXIMUM OF 4 TABLETS (200MG) WITHIN 24 HOURS. Active Non-VA Medications Status 1) Non-VA ALBUTEROL 90MCG (CFC-F) 200D ORAL INHL 2 PUFFS ACTIVE MOUTH FOUR TIMES A DAY NEEDED 2) Non-VA DOXYCYCLINE HYCLATE 50MG CAP 100MG MOUTH TWICE ACTIVE A DAY 3) Non-VA IBUPROFEN 200MG TAB 200 MG THREE TIMES A DAY ACTIVE NEEDED 12 Total Medications MEDICATION RECONCILIATION Outpatient At this visit I have reviewed the medication list, and discussed relevant medications with the patient/surrogate. An updated patient medication list was given to the participant(s). Change/New: I have noted this on the patient's copy of the medication list. Education on NEW Medication: I have reviewed the medication list for possible drug: drug interactions or contraindications prior to ordering NEW medications during this visit. Patient indicated readiness to learn and has been instructed on action, dose, frequency and side effects of the new medication and I noted new medication on participant's copy of the medication list. Verbalizes understanding Physical Exam: Vitals: BP: 125/83 (05/29/2023 14:38) P: 86 (05/29/2023 14:38) R: 14 (05/29/2023 14:38) T: 98 F [36.7 C] (05/29/2023 14:38) WT: 225 lb. [102.06 kg] (05/29/2023 14:38) BMI: 30.6 Pain: 0 (05/29/2023 14:38) O2 Sat: 96% (05/29/2023 14:38) General: Alert, well dressed and groomed, no apparent distress HEENT: Normocephalic, atraumatic, ear canals clear, TMs normal, OP clear, neck supple without mass, adenopathy or thyromegaly Lungs: scattered wheeze on the right side , coarse lung sounds ; no rhonchi or rales CV: RRR without murmur, rub or gallop GI: Abdomen non distended, soft, non-tender, normal bowel sounds, no mass or HSM Skin: Warm and moist, no rash or erythema MS: No joint swelling, ambulates without difficulty Psych: Good eye contact, speech normal rate and rhythm, affect full range Assessment/Plan: Wellness/screening visit completed. #Cough and congestion for more than 3 weeks - consistent with sinusitis and bronchitis . Will treat with doxy and albuterol . RN to follow up to see response. #Migraine, IBS, allergic rhinitis-will change him to Zyrtec , continue Flonase Placed ENT consult for deviated septum #Mental health- continue with MH #Annual Vested exam - meds: reviewed, updated and renewed - the ACTIVE PROBLEM LIST problem list above is considered to be the Past Medical History for the purposes of this note; it was reviewed at the time of this visit and no changes unless otherwise noted above #Health Maintenance/Wellness -Exercise: None -Diet: well balanced -Dental: no concerns -Hearing: no concerns -Eye Exam: no concerns - Cancer screening: ---> Prostate: Ordered PSA ---> FIT ordered I will follow up with the on labs. If all is well we can see back in a year. Indiahoma understands and agrees to the plan. Follow up as discussed. Sooner if questions or concerns. Disclaimer: This note consists of symbols derived from keyboarding, dictation and/or voice recognition software. As a result, there may be errors in the script that have gone undetected. Please consider this when interpreting information found in this chart. Follow-Up Pos PTSD/Depression: I have reviewed the results of the Mental Health screens and have evaluated the patient. Based on the evaluation, the following disposition plan will be implemented: Already receiving needed treatment. Contact information and instructions for accessing emergency services provided. Avg Risk Colorectal Cancer Screen: AVERAGE RISK colorectal cancer screening is due based on information available to this clinical reminder FOBT/FIT (Fecal Immunochemical Testing) has been ordered. See order tab for details. Request e-consult for assistance or recommendations /KIMO Mack DNP Signed: 05/29/2023 16:06 07/30/2023 ADDENDUM STATUS: COMPLETED FIT positive - called and ordered colonoscopy /KIMO Mack DNP Signed: 07/30/2023 11:48 [facility]
--- OUTSIDE RECORDS SUMMARY | 2023-08-01 12:26 | XMS_ITS | Encounter Summary ---
Author Name [facility] Organization [facility] Address [address], [place] [address] Care Team Providers Care Hands Parter Name Role Phone KRISTY WIGGINS Primary Care [...] (PPO) FEP BASIC PLUS ONE 2023 113 [id number] Lanre CASTANEDA PATIENT [place] FEP PREFERRED PROVIDER ORGANIZAT ION (PPO) FEP BASIC PLUS ONE 2023 113 [id number] Lanre CASTANEDA PATIENT [employer] FEP RX PRESCRIPT ION FEPRX Feb 17, 2017 [id number] [phone] Lanre CASTANEDA PATIENT Selected Encounter This section includes the information on record at [place] for the Encounter. Date/Time Encounter Type Encounter Description Reason Provider Source Jun 05, 2023 11:30 AM HC PRO PHONE CALL 5-10 MIN TELEPHONE PRIMARY CARE ICD-10-CM Z71.89 Other specified counseling SERGE ORTIZ Encounter Template Text not used by [place] Assessments - Encounter Diagnoses This section includes the primary and secondary diagnoses documented for the Encounter. Date/Time Primary/Secondary Diagnosis Diagnosis Name Provider Source Jun 05, 2023 11:30 AM PRIMARY Other specified counseling SERGE ORTIZ Plan of Treatment: Future Appointments (+ 6 months) and Future Tests (+/- 45 days) The Plan of Treatment section includes [facility] care [facility] for the [facility] This section includes future appointments and future orders which are active, pending or scheduled. Future Appointments This section includes appointments that were scheduled to occur 6 months from the date of the Encounter, up to a maximum of 20 appointments. The data comes from all [place] treatment facilities. Appointment Date/Time Appointment Type Appointme nt Facility Name June 25, 2023 03:00 PM [facility]ATORY - NONE [facility] Nov 28, 2023 02:40 PM AMBULATORY - SURGERY [facility] Active, Pending, and Scheduled Orders This section includes a listing of several types of active, pending, and scheduled orders, including clinic medications orders, diagnostic test orders, procedure orders and consult orders; where the start date of the order is 45 days before the date of the Encounter or 45 days after the date of theEncounter. The data comes from all [place] treatment facilities. Test Date/Time Test Type Test Details Facility Name May 29, 2023 03:10 PM Consult Order ENT OUTPT Cons Con sultant's Choice [facility] Lab Results: +/- 30 days of the encounter This section includes the Chemistry and Hematology Lab Results on record with [place] for the patient. Radiology Reports and Pathology Reports are provided separately, in subsequent sections. Lab Results This section contains the Chemistry/Hematology Results that were resulted 30 days before or 30 daysafter the date of the Encounter. Date/Time Source Result Type Result - Unit Interpretation Reference Range Comment May 29, 2023 03:25 PM [facility] HEMOGLOBIN A1C Specimen Type: BLOOD Comment: Values [...] May 29, 2023 02:58 PM Reporting Lab: [facility] [id number] Performing Lab: [facility] [id number] HEMOGLOBIN A1C 5.2 4.0-6.0 May 29, 2023 03:25 PM [facility] TSH W/REFLEX TO FREE T4 Specimen Type: PLASMA Comment: Elevated triglyceride result from a non-fasting specimen should be interpreted with caution. A fasting panel is recommended for accurate triglycerides when trigs are >200 from a non-fasting specimen. Ordering Provider: ANA WIGGINS Report Released Date/Time: May 29, 2023 02:58 PM Reporting Lab: [facility] [id number] Performing Lab: [place] [id number] TSH 1.66 u[IU]/mL 0.35-4.94 May 29, 2023 03:25 PM [facility] LIPID PANEL,NON-FASTING Specimen Type: PLASMA Comment: Elevated triglyceride result from a non-fasting specimen should be interpreted with caution. A fasting panel is recommended for accurate triglycerides when trigs are >200 from a non-fasting specimen. Ordering Provider: ANA WIGGINS Report Released Date/Time: May 29, 2023 02:58 PM Reporting Lab: [facility] [id number] Performing Lab: [facility] [id number] CHOLESTEROL 268 mg/dL H <199 .HDL 31 mg/dL L >40 LDL CALCULATION 185 mg/dL H <99 VLDL CALCULATION 52 mg/dL H <29 NON HDL CHOLESTEROL 237 mg/dL H <129 TRIG(NON FASTING) 258 mg/dL H <149 May 29, 2023 03:25 PM [facility] BASIC METABOLIC PANEL+MG Specimen Type: PLASMA Comment: Elevated triglyceride result from a non-fasting specimen should be interpreted with caution. A fasting panel is recommended for accurate triglycerides when trigs are >200 from a non-fasting specimen. Ordering Provider: ANA WIGGINS Report Released Date/Time: May 29, 2023 02:58 PM Reporting Lab: [facility] [id number] Performing Lab: [facility] [phone] CREATININE 0.8 mg/dL 0.7-1.2 UREA NITROGEN 12 mg/dL 8-26 GLUCOSE 88 mg/dL 70-100 SODIUM 134 mmol/L L 136-145 POTASSIUM 4.1 mmol/L 3.5-5.1 CHLORIDE 105 mmol/L 98-107 CO2 20 mmol/L L 22-29 CALCIUM 9.8 mg/dL 8.4-10.2 MAGNESIUM 1.9 mg/dL 1.6-2.6 ANION GAP 9 mmol/L 5-15 .CREAT EGFR(CKD-EPI) >90 >60 May 29, 2023 03:25 PM [facility] CBC & DIFF Specimen Type: BLOOD Comment: Automated Differential Performed Ordering Provider: ANA WIGGINS Report Released Date/Time: May 29, 2023 02:58 PM Reporting Lab: [facility] [id number] Performing Lab: [facility] [phone] WBC 8.59 10*3/uL 4.0-11.0 RBC 5.68 10*6/uL [...] and tobacco- related health factors from the [place] facility where the Encounter took place. Current Smoking Status This section includes the most current smoking, or tobacco-related health factor, from the [place] facility where the Encounter took place. Date/Time Current Smoking Status Comment Facil ity May 29, 2023 02:30 PM VA-TOBACCO FORMER USER [facility] Tobacco Use History This section includes a history of the smoking, or tobacco-related health factors, that were collected on or before the date of the Encounter. The data comes from the [place] facility where the Encounter took place. Date/Time Smoking Status/Tobacco Use Comment F acility May 29, 2023 02:30 PM VA-TOBACCO QUIT < 1 YEAR [facility] May 16, 2022 02:30 PM VA-TOBACCO USE 30 YEARS OR MORE [facility] May 16, 2022 02:30 PM VA-TOBACCO USE ADVICE [facility] May 16, 2022 02:30 PM VA-TOBACCO USE ROPE TIER YES [facility] May 16, 2022 02:30 PM VA-TOBACCO USE MED YES [facility] May 16, 2022 02:30 PM VA-TOBACCO USE [place] 30 MIN OF WAKE UP [facility] May 16, 2022 02:30 PM VA-TOBACCO USER EVERY DAY [facility] Jan 11, 2021 02:30 PM VA-TOBACCO USE 30 YEARS OR MORE [facility] Jan 11, 2021 02:30 PM VA-TOBACCO USE ADVICE [facility] Jan 11, 2021 02:30 PM VA-TOBACCO USE ROPE TIER YES [facility] Jan 11, 2021 02:30 PM VA-TOBACCO USE MED YES [facility] Jan 11, 2021 02:30 PM VA-TOBACCO USE [place] 30 MIN OF WAKE UP [facility] Jan 11, 2021 02:30 PM VA-TOBACCO USER EVERY DAY [facility] Apr 01, 2019 10:33 AM VA-TOBACCO USE 30 YEARS OR MORE [facility] Apr 01, 2019 10:33 AM VA-TOBACCO USE ADVICE [facility] Apr 01, 2019 10:33 AM VA-TOBACCO USE ROPE TIER YES [facility] Apr 01, 2019 10:33 AM VA-TOBACCO USE MED YES [facility] Apr 01, 2019 10:33 AM VA-TOBACCO USE [place] 30 MIN OF WAKE UP [facility] Apr 01, 2019 10:33 AM VA-TOBACCO USER EVERY DAY [facility] Jan 05, 2008 09:13 AM PATIENT IS TOBACCO USER [facility] Advance Directives: All historical and current Section Date Range: From patient's date of to the date document was created. This section includes ALL of a patient's completed or amended [place] Advance and Rescinded Directives. The entries below indicate that a directive exists for the patient, but an actual copy is not included with this document. The data comes from all [place] facilities. Date Advance Directives Provider Source Jan 29, 2017 ADVANCE DIRECTIVE DISCUSSION ALEX KURTZ [facility] Radiology Reports: +/- 30 days of [...] the Encounter. The data comes from all [place] treatment facilities. Date/Time Radiology Report Provider Source June 25, 2023 02:57 PM CHEST 2 VIEWS PA A ND LAT: SALEEM CASTANEDA [id number] -[id number] M Exm Date: JUNE 25, 2023@14:57 Req Phys: KRISTY WIGGINS Pat Loc: [facility] RN ( Img Loc: [facility] Service: [place] [address] (Case [id number] COMPLETE) CHEST 2 VIEWS PA AND LAT (RAD Detailed) CPT:84739 Reason for Study: cough - follow up pneumonia Clinical History: Roca IS NOT under investigation for COVID-19 or is COVID-19 negative follow up pneumonia Responsible provider name and phone number to notify for critical findings if other than user placing the order and pager listed below: User placing orders pager: Tu [phone] LAST CREATININE 0.8 (05/29/23) Report Status: Verified Date Reported: JUNE 25, 2023 Date Verified: JUNE 25, [address] Clearer E-Sig:/MICHELLE/HUMBERTO CR MD Report: X-RAY EXAM OF chest, PA and lateral INDICATION: Reason for Study: cough - follow up pneumonia Roca IS NOT under investigation for COVID-19 or is COVID-19 negative follow up pneumonia Responsible provider name and phone number to notify for critical findings if other than user placing the order and pager listed below: User placing orders pager: Nallusamy [phone] LAST CREATININE 0.8 (05/29/23) COMPARISON: 05/29/2023 Impression: [...] Primary Interpreting Staff: HUMBERTO CR MD, RADIOLOGIST (Teto) /HUMBERTO YANCEY [facility] May 29, 2023 03:22 PM CHEST 2 VIEWS PA A ND LAT: SALEEM ARIC [id number] -[id number] M Exm Date: MAY 29, 2023@15:22 Req Phys: LEO WIGGINSTHI Pat 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 (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'g Loc Img Loc: [facility] Service: Unknown (Case [id number] COMPLETE) CHEST 2 VIEWS PA AND LAT (RAD Detailed) CPT:15263 Reason for Study: cough Clinical History: Roca IS NOT under investigation for COVID-19 or is COVID-19 negative cough Responsible provider name and phone number to notify for critical findings if other than user placing the order and pager listed below: User placing orders pager: LAST CREATININE____ Report Status: Verified Date Reported: MAY 29, 2023 Date Verified: MAY 29, [address] Clearer E-Sig:/MICHELLE/GUDELIA HELMS MD Report: EXAMINATION: CHEST 2 VIEWS PA AND LAT 05/29/2023 3:22 PM INDICATION: cough Impression: Heart size and pulmonary vascularity within normal limits. No pulmonary infiltrate or pleural effusion. Subtle blunting of the left posterior costophrenic angle seen on the lateral view. No comparison chest x-ray. Primary Interpreting Staff: GUDELIA HELMS MD, RADIOLOGIST (Right Of Way Clearer) /RTS GUDELIA HELMS [facility] Encounter Notes: All associated encounter notes This section contains the clinical notes associated to the Encounter. Date/Time Encounter Note(s) Provider Source June 26, 2023 03:52 PM ADDENDUM: LOCAL TITLE: Addendum STANDARD TITLE: ADDENDUM DATE OF NOTE: JUNE 26, 2023@15:52 ENTRY DATE: JUNE 26, 2023@15:52:02 AUTHOR: KRISTY WIGGINS COSIGNER: URGENCY: STATUS: COMPLETED xray shows improvement Impression: FINDINGS/IMPRESSION: Heart size and pulmonary vascularity are within normal limits. The appearance of the posterior costophrenic angles is unchanged compared with 05/29/2023. There may be some minimal blunting of the left posterior costophrenic angle, not significantly changed compared with the abdomen pelvis CT dated 02/21/2021. There are no other pulmonary opacities identified. Moderate degenerative changes are seen in the thoracic spine. /michelle/ KIMO ROSENBERG DNP Signed: 06/26/2023 15:52 Receipt Acknowledged By: 06/27/2023 12:26 /es/ SERGE ORTIZ RN REGISTERED NURSE --- Original Document --- 06/05/23 [facility] NURSING RN NOTE: TYPE OF VISIT: Telephone REASON FOR VISIT: follow up bronchitis/pneumonia Spoke with . Roca reports he finished his antibiotic and he is gradually improving/feeling better. He states he is able to take more of a deep breath now vs a week ago. states he still has a productive cough at night though. He is using the albuterol prn, but much less often. states he felt feverish, noting his neck and forehead felt hot, but he did not actually check his temperature. He denies any headache, body aches or chills. Discussed elevated cholesterol results and provider recommendation to take rosuvastatin. Roca states he received his lab results letter and the medication in the mail. He remains reluctant to start a statin medication because of all the negative information he has heard. Reviewed the possibility of muscle soreness ADR, but noted a decreased incidence with rosuvastatin compared to other statin medication. Noted should be weighing the risk for medication side effects (which are minimal) vs the risk for cardiovascular complication or event (which is much more serious). states he understands and will consider starting the medication after doing more research. PLAN: Continue to take deep breaths and use albuterol, prn. Call back if sx do not continue to improve or worsen. Scheduled follow up CXR on 06/25/23. Send secure message regarding starting cholesterol medication. /michelle/ SERGE ORTIZ RN REGISTERED NURSE Signed: 06/05/2023 15:02 06/27/2023 ADDENDUM STATUS: UNSIGNED You may not VIEW this UNSIGNED Addendum. KRISTY WIGGINS [facility] Jun 05, 2023 11:30 AM NURSING OUTPATIENT NOTE: LOCAL TITLE: [facility] NURSING RN NOTE STANDARD TITLE: NURSING OUTPATIENT NOTE DATE OF NOTE: JUN 05, 2023@11:30 ENTRY DATE: JUN 05, 2023@11:50:45 AUTHOR: SERGE ORTIZ EXP COSIGNER: URGENCY: STATUS: COMPLETED [facility] NURSING RN NOTE Has ADDENDA TYPE OF VISIT: Telephone REASON FOR VISIT: follow up bronchitis/pneumonia Spoke with . Roca reports he finished his antibiotic and he is gradually improving/feeling better. He states he is able to take more of a deep breath now vs a week ago. Roca states he still has a productive cough at night though. He is using the albuterol prn, but much less often. Roca states he felt feverish, noting his neck and forehead felt hot, but he did not actually check his temperature. He denies any headache, body aches or chills. Discussed elevated cholesterol results and provider recommendation to take rosuvastatin. states he received his lab results letter and the medication in the mail. He remains reluctant to start a statin medication because of all the negative information he has heard. Reviewed the possibility of muscle soreness ADR, but noted a decreased incidence with rosuvastatin compared to other statin medication. Noted should be weighing the risk for medication side effects (which are minimal) vs the risk for cardiovascular complication or event (which is much more serious). states he understands and will consider starting the medication after doing more research. PLAN: Continue to take deep breaths and use albuterol, prn. Call back if sx do not continue to improve or worsen. Scheduled follow up CXR on 06/25/23. Send secure message regarding starting cholesterol medication. /michelle/ SERGE ORTIZ RN REGISTERED NURSE Signed: 06/05/2023 15:02 06/26/2023 ADDENDUM STATUS: COMPLETED xray shows improvement Impression: FINDINGS/IMPRESSION: Heart size and pulmonary vascularity are within normal limits. The appearance of the posterior costophrenic angles is unchanged compared with 05/29/2023. There may be some minimal blunting of the left posterior costophrenic angle, not significantly changed compared with the abdomen pelvis CT dated 02/21/2021. There are no other pulmonary opacities identified. Moderate degenerative changes are seen in the thoracic spine. /michelle/ KIMO ROSENBERG DNP Signed: 06/26/2023 15:52 Receipt Acknowledged By: 06/27/2023 12:26 /michelle/ SERGE ORTIZ RN REGISTERED NURSE 06/27/2023 ADDENDUM STATUS: COMPLETED Informed of x-ray results, per provider, via secure messaging in [facility]. /michelle/ SERGE ORTIZ RN REGISTERED NURSE Signed: 06/27/2023 12:27 SERGE ORTIZ [facility]
--- OUTSIDE RECORDS SUMMARY | 2023-08-01 12:26 | XMS_ITS | Encounter Summary ---
Author Name [facility] Organization [facility] Address [address] [facility], [place] [address] Care Team Providers Care Mule Packer Name Role Phone KRISTY WIGGINS Primary Care [...] (PPO) FEP BASIC PLUS ONE 2023 113 [id number] [phone] Lanre CASTANEDA PATIENT [place] FEP PREFERRED PROVIDER ORGANIZAT ION (PPO) FEP BASIC PLUS ONE 2023 113 [id number] Lanre CASTANEDA PATIENT [employer] FEP RX PRESCRIPT ION FEPRX Feb 17, 2017 [id number] Lanre CASTANEDA PATIENT Selected Encounter This section includes the information on record at [facility] for the Encounter. Date/Time Encounter Type Encounter Description Reason Pro vider Source May 30, 2023 10:46 AM Outpatient Encounter PRIMARY CARE/MEDICINE IHE Encounter Template Text not used by [facility] Plan of Treatment: Future Appointments (+ 6 months) and Future Tests (+/- 45 days) The Plan of Treatment section includes future care activities for the patient from all [facility] This section includes future appointments and future orders which are active, pending or scheduled. Future Appointments This section includes appointments that were scheduled to occur 6 months from the date of the Encounter, up to a maximum of 20 appointments. The data comes from all [facility] facilities. Appointment Date/Time Appointment Type Appointme nt Facility Name Jun 05, 2023 11:30 AM AMBULATORY - MEDICINE [facility] June 25, 2023 03:00 PM AMBULATORY - NONE [facility] Nov 28, 2023 02:40 PM AMBULATORY - SURGERY [facility] Active, Pending, and Scheduled Orders This section includes a listing of several types of active, pending, and scheduled orders, including clinic medications orders, diagnostic test orders, procedure orders and consult orders; where the start date of the order is 45 days before the date of the Encounter or 45 days after the date of theEncounter. The data comes from all [facility]. Test Date/Time Test Type Test Details Facility Name May 29, 2023 03:10 PM Consult Order ENT OUTPT Cons Con sultant's Choice [facility] Lab Results: +/- 30 days of the encounter This section includes the Chemistry and Hematology Lab Results on record with [facility] for the patient. Radiology Reports and Pathology Reports are provided separately, in subsequent sections. Lab Results This section contains the Chemistry/Hematology Results that were resulted 30 days before or 30 daysafter the date of the Encounter. Date/Time Source Result Type Result - Unit Interpretation Reference Range Comment May 29, 2023 03:25 PM [facility] HEMOGLOBIN A1C Specimen Type: BLOOD Comment: Values [...] May 29, 2023 02:58 PM Reporting Lab: [facility] [id number] Performing Lab: [facility] [id number] HEMOGLOBIN A1C 5.2 4.0-6.0 May 29, 2023 03:25 PM CHERELLE IRVING TSH W/REFLEX TO FREE T4 Specimen Type: PLASMA Comment: Elevated triglyceride result from a non-fasting specimen should be interpreted with caution. A fasting panel is recommended for accurate triglycerides when trigs are >200 from a non-fasting specimen. Ordering Provider: ANA WIGGINS Report Released Date/Time: May 29, 2023 02:58 PM Reporting Lab: [facility] [id number] Performing Lab: [facility] [id number] TSH 1.66 u[IU]/mL 0.35-4.94 May 29, 2023 03:25 PM CHERELLE IRVING LIPID PANEL,NON-FASTING Specimen Type: PLASMA Comment: Elevated triglyceride result from a non-fasting specimen should be interpreted with caution. A fasting panel is recommended for accurate triglycerides when trigs are >200 from a non-fasting specimen. Ordering Provider: ANA WIGGINS Report Released Date/Time: May 29, 2023 02:58 PM Reporting Lab: [facility] [id number] Performing Lab: [facility] [id number] CHOLESTEROL 268 mg/dL H <199 .HDL 31 [...] May 29, 2023 02:58 PM Reporting Lab: [facility] [id number] Performing Lab: [facility] [id number] CREATININE 0.8 mg/dL 0.7-1.2 UREA NITROGEN 12 [...] May 29, 2023 02:58 PM Reporting Lab: [facility] [id number] Performing Lab: [facility] [address] WBC 8.59 10*3/uL 4.0-11.0 RBC 5.68 10*6/uL [...] and tobacco- related health factors from the [facility] facility where the Encounter took place. Current Smoking Status This section includes the most current smoking, or tobacco-related health factor, from the [facility] facility where the Encounter took place. Date/Time Current Smoking Status Comment Fede amaya Apr 09, 2017 08:20 AM CURRENT TOBACCO USER [facility] Tobacco Use History This section includes a history of the smoking, or tobacco-related health factors, that were collected on or before the date of the Encounter. The data comes from the [facility] facility where the Encounter took place. Date/Time Smoking Status/Tobacco Use Comment F acility Aug 02, 2015 03:27 PM CURRENT TOBACCO USER [facility] Oct 15, 2013 03:00 PM CURRENT TOBACCO USER [facility] Dec 10, 2012 12:12 PM CURRENT TOBACCO USER [facility] Feb 14, 2012 01:04 PM CURRENT TOBACCO USER [facility] Sep 25, 2010 01:00 PM CURRENT TOBACCO USER [facility] Jan 05, 2008 09:13 AM PATIENT IS TOBACCO USER [facility] Apr 22, 2007 03:08 PM CURRENT TOBACCO USER [facility] June 25, 2006 01:48 PM CURRENT TOBACCO USER [facility] Advance Directives: All historical and current Section Date Range: From patient's date of to the date document was created. This section includes ALL of a patient's completed or amended [facility] Advance and Rescinded Directives. The entries below indicate that a directive exists for the patient, but an actual copy is not included with this document. The data comes from all [facility]. Date Advance Directives Provider Source Jan 29, 2017 ADVANCE DIRECTIVE DISCUSSION ALEX KURTZ [facility] Radiology Reports: +/- 30 days of [...] the Encounter. The data comes from all [facility] treatment facilities. Date/Time Radiology Report Provider Source June 25, 2023 02:57 PM CHEST 2 VIEWS PA A ND LAT: SALEEM CASTANEDA [id number] -1970 M Exm Date: JUNE 25, 2023@14:57 Req Phys: NALLUSAMY,VASUMATHI Pat Loc: [facility] PACT TELEPHONE HEARTS RN ( Img Loc: [facility] RADIOLOG[facility] Service: [place] [address] (Case [id number] COMPLETE) CHEST 2 VIEWS PA AND LAT (RAD Detailed) CPT:69893 Reason for Study: cough - follow up pneumonia Clinical History: Lula IS NOT under investigation for COVID-19 or is COVID-19 negative follow up pneumonia Responsible provider name and phone number to notify for critical findings if other than user placing the order and pager listed below: User placing orders pager: Tu [phone] LAST CREATININE 0.8 (05/29/23) Report Status: Verified Date Reported: JUNE 25, 2023 Date Verified: JUNE 25, 2023 Medical Sales Specialist E-Sig:/ES/HUMBERTO CR MD Report: X-RAY EXAM OF chest, PA and lateral INDICATION: Reason for Study: cough - follow up pneumonia Lula IS NOT under investigation for COVID-19 or is COVID-19 negative follow up pneumonia Responsible provider name and phone number to notify for critical findings if other than user placing the order and pager listed below: User placing orders pager: Tu [phone] LAST CREATININE 0.8 (05/29/23) COMPARISON: 05/29/2023 Impression: [...] Primary Interpreting Staff: HUMBERTO CR MD, RADIOLOGIST (Medical Sales Specialist) /HUMBERTO YANCEY [facility] May 29, 2023 03:22 PM CHEST 2 VIEWS PA A ND LAT: SALEEM CASTANEDA [id number] -1970 M Exm Date: MAY 29, 2023@15:22 Req Phys: NALLUSAMY,VASUMATHI Pat Loc: [facility] (Req'g Loc Img Loc: [facility] Service: Unknown (Case [id number] COMPLETE) CHEST 2 VIEWS PA AND LAT (RAD Detailed) CPT:49916 Reason for Study: cough Clinical History: IS NOT under investigation for COVID-19 or is COVID-19 negative cough Responsible provider name and phone number to notify for critical findings if other than user placing the order and pager listed below: User placing orders pager: LAST CREATININE____ Report Status: Verified Date Reported: MAY 29, 2023 Date Verified: MAY 29, 2023 Medical Sales Specialist E-Sig:/ES/GUDELIA HELMS MD Report: EXAMINATION: CHEST 2 VIEWS PA AND LAT 05/29/2023 3:22 PM INDICATION: cough Impression: Heart size and pulmonary vascularity within normal limits. No pulmonary infiltrate or pleural effusion. Subtle blunting of the left posterior costophrenic angle seen on the lateral view. No comparison chest x-ray. Primary Interpreting Staff: GUDELIA HELMS MD, RADIOLOGIST (Medical Sales Specialist) /GUDELIA SINGH [facility] Encounter Notes: All associated encounter notes This section contains the clinical notes associated to the Encounter. Date/Time Encounter Note(s) Provider Source May 30, 2023 10:46 AM LETTERS: LOCAL TITLE: FOLLOW UP RESULTS LETTER STANDARD TITLE: LETTERS DATE OF NOTE: MAY 30, 2023@10:46 ENTRY DATE: MAY 30, 2023@10:46:11 AUTHOR: KRISTY WIGGINS EXP COSIGNER: URGENCY: STATUS: COMPLETED [facility] [address] [place] [address] May SALEEM CASTANEDA [address] [place] [id number] Dear : You should be receiving another letter with the results of the tests you had done through the [facility]. I have reviewed the results and overall they looked fine except your cholesterol ,I do recommend you start the prescription medication-rosuvastatin that was given to you, if you are taking it already I need to increase the dose. I renewed the prescription and send it to you if you have any questions regarding the medication please call the clinic. Otherwise all other labs looks normal and are at baseline If you have any further questions or problems, please contact the call center at [phone] to speak with a nurse or leave me a message. Sincerely, KRISTY WIGGINS DNP,KIMO WIGGINS,KRISTY VILLARREAL OC
[2023-08-01 12:32] LABS: Chloride* 104 mmol/L (96-114); Potassium* 4.1 mmol/L (3.6-5.1); Sodium* 136 mmol/L (135-149)
[2023-08-01 12:35] LABS: Anion Gap 16 mEq/L (7-15); Blood Urea Nitrogen* 9 mg/dL (7-30); Carbon Dioxide* 16 mmol/L (20-32); Creatinine* 0.8 mg/dL (0.5-1.5); Est. Creatinine Clearance* 116.35; Estimated Glomerular Filt Rate 107 ml/min; Glucose* 65 mg/dL (60-115)
[2023-08-01 12:36] LABS: Calcium* 9.2 mg/dL (8.4-10.6)
== END 2023-08-01 13:46 | disposition home or self-care (01) ==
PROVIDERS: Emergency Provider Emergency Medicine Emergency Medical Services
DX: R10.9 Unspecified abdominal pain (principal)
CPT/HCPCS: 36415; 74177; 80048; 85025; 99284; 99285; Q9967

== ENCOUNTER 2025-02-10 11:58 | Outpatient (CLI) | payer BC, OTHER, SELFPAY | END 2025-02-10 11:59 | disposition home or self-care (01) | LOC: AMB 02-15 14:32 | PROVIDERS: Visit Provider Student in an Organized Health Care Education/Training Program | DX: I46.9 Cardiac arrest, cause unspecified (principal) | CPT/HCPCS: A0425; A0433 ==

== ENCOUNTER 2025-02-10 12:57 | Emergency (ER) | payer BC, OTHER, SELFPAY ==
[2025-02-10] VITALS (18 sets, daily range): BP systolic 85–176; BP diastolic 21–89; PULSE 99–174; RESP 14–103; TEMP 34.2; O2SAT 37–78; BMI 24.4
[2025-02-10] MEDS: EPINEPHrine 0.1 MG/ML SYRINGE 1 MG IVP ×4 (13:00→13:40)
--- OUTSIDE RECORDS SUMMARY | 2025-02-10 13:00 | XMS_ITS | Clinical Summary ---
Author Organization [facility] Address [address] [place] [address] Care Team Providers Care Assistant Education Director Name Role Phone None Reported, Pcp Primary Care Provider Unavail able Source Comments Patient records contain information from all sites at [facility]. For routine questions regarding patient records, call [phone] during business hours, M-F 8:00 AM - 5:00 PM Central Time. Record requests for emergency care only can be directed to [phone] at any time.[facility] Allergies Active AllergyReactionsCriticalityNoted YtmmHjdkyufhSroraxzkxfZlbbuwg84/17/2024 Medications MedicationSigDispense QuantityRefillsLast FilledStart DateEnd DateStatus psyllium husk, bulk, 100 % powder TAKE 1 TEASPOONFUL BY MOUTH EVERY MORNING MIXED IN JUICE OR WATER DIRECTED *CAN INCREASE TO 2 TEASPOONS DAILY IF NEEDED*02/20/2021ctive fluticasone propionate (FLONASE) 50 mcg/actuation nasal spray SPRAY 1 SPRAY IN EACH NOSTRIL TWICE A DAY USE REGULARLY FOR RELIEF OF ALLERGIES/CONGESTION02/20/2021ctive ibuprofen (ADVIL,MOTRIN) 200 mg tablet 200 mg.06/25/2006ctive nicotine polacrilex (COMMIT) 4 mg lozenge Has not started yet01/11/2021ctive naproxen sodium (ALEVE/ANAPROX) 220 mg tablet Take 220 mg by mouth as needed for pain.Active Active Problems ProblemNoted DateDiagnosed DatePost Traumatic Stress Disorder Knffpbi7909/30/2021 Alcohol Moderate Or Severe Use Disorder (Dependence) Ldiayadfhrbag96/21/2022 Hrsoeyg2706/01/2021pnea Sleep Mzjlwwcucyp29/21/2022Gastroesophageal Reflux Fxurzvo1206/01/20211475Iyicsyzflhljlk92/21/2022Major Depressive Disorder Single Episode Wscnsqcqbzq24/21/2022Migraine Ihgraimf23/21/2022Unilateral Inguinal Hernia Without Obstruction Or Gangrene Not Specified As Ahnzxwtpd65/21/2022 Immunizations ImmunizationAdministration DatesNext DueHepB Adult04/08/2009,02/23/1997, 01/05/1997Influenza TIV (IM)01/24/2010,11/28/2006Influenza, Seasonal, Injectable 01/24/2010Influenza, Goahcorxgbs10/30/2013,11/28/2006Td (Adult), adsorbed 11/25/2001Td, (Adult) Svricsvtcky88/01/2006,02/11/2001Tdap103/05/2023,08/11/2015, 04/08/2009 Social History Tobacco UseTypesPacks/DayYears UsedDateSmoking Tobacco: Every DayCigarettes Tobacco Cessation:Ready to Q uit: Not Asked; Counseling Given: Not Answered Alcohol UseStandard Drinks/WeekCommentsNot Currently0 (1 standard drink = 0.6 oz pure alcohol)varies from week to week based on anxiety levelSex and Gender InformationValueDate RecordedSex Assigned at BirthNot on fileLegal SexMale 03/15/2016 8:43 AM CSTGender IdentityNot on fileSexual OrientationNot on file Last Filed Vital Signs Vital SignReadingTime TakenCommentsBlood Ccywuyjh647/9103 10:55 AM CDT Vtrcm570904/21/2024 10:55 AM SBOPngoxnfgdlz68 ??C (98.6 ??F)04/21/2024 10:55 AM CDTRespiratory Tsgm673104/21/2024 10:55 AM CDTOxygen Egwbllvmix47%04/21/2024 10:55 AM CDTInhaled Oxygen Concentration--Rknarn49.7 kg (173 lb 9.6 oz)04/21/2024 9:19 AM DDTGxndei716.9 cm (6')04/21/2024 9:19 AM CDTBody Mass Index23.54004/21/2024 9:19 AM CDT Plan of Treatment Health MaintenanceDue DateLast DoneCommentsCT Vfjzlwwrvmim38/13/1973Cologuard 1970 2221Foxzcfxotkx52/13/1973Colorectal Cancer Eiralzgzc11/13/1973Depression Monitoring (PHQ-9)1972FIT1972HIV Zsncxjomk08/13/1973Hepatitis C Bfexnhqqu48/13/1973Lipid (Cholesterol) Iomxbsvdo31/13/1973Pneumococcal vaccine (50+ years) (1 of 2 - PCV)02/23/1991Zoster Vaccines (1 of 2)3Depression Monitoring (PHQ-9 for quality tracking)5COVID-19 Vaccine (1 - 2024- season)2024Influenza Vaccine (#1)51, 01/24/2010, 01/24/2010, Additional history existsFasting Glucose for Diabetes Screening 803/12/2024, 2DTaP,Tdap,and Td Vaccines (4 - Td or Tdap) 411/, 08/11/2015, 04/08/2009, Additional history existsHepatitis B YxngxkcxLhwxhcose98/26/2010, 02/23/1997, 01/05/1997IPV VaccinesAged OutNo longer eligible based on patient's age to complete this topic Medical Devices ImplantedTypeAreaManufacturerDevice IdentifierShelf Expiration DateModel / Serial / LotMesh Or PatchMesh or PatchAbdomen Procedures Procedure NamePriorityDate/TimeAssociated DiagnosisCommentsBASIC METABOLIC PANEL, S/PSTAT04/21/2024 9:34 AM CDT from Last 3 Months or Most Recently Relevant to Health Maintenance Results * (ABNORMAL) Basic Metabolic Panel (04/21/2024 9:34 AM CDT)ComponentValueRef RangeTest MethodAnalysis TimePerformed AtPathologist SignaturePotassium, P4.0 3.6 - 5.2 mmol/L04/21/2024 9:54 AM CDTNPRGSodium, Q183393 - 145 mmol/L 04/21/2024 9:54 AM CDTNPRGChloride, L41486 - 107 mmol/L04/21/2024 9:54 AM CDT NPRGBicarbonate, P2222 - 29 mmol/L04/21/2024 9:54 AM CDTNPRGAnion Gap, P137 - 15004/21/2024 9:54 AM CDTNPRGBUN (Blood Urea Nitrogen), P148 - 24 mg/dL 04/21/2024 9:54 AM CDTNPRGCreatinine0.67(L)0.74 - 1.35 mg/dL04/21/2024 9:54 AM CDTNPRGEstimated GFR (eGFR)>90>=60 mL/min/BSA04/21/2024 9:54 AM CDTNPRG Comment: Estimated GFR calculated using the 2020 CKD_EPI creatinine equation. Calcium, Total, P9.18.6 - 10.0 mg/dL04/21/2024 9:54 AM CDTNPRGGlucose, P9070 - 140 mg/dL04/21/2024 9:54 AM CDTNPRGSpecimen (Source)Anatomical Location / LateralityCollection Method / VolumeCollection TimeReceived TimeBlood (Blood, Venous)04/21/2024 9:34 AM CDT04/21/2024 9:36 AM CDT Narrative Authorizing ProviderResult TypeResult StatusBenandre Knight M.D.LAB BLOOD ADD-ONFinal ResultPerforming OrganizationAddressCity/State/ZIP CodePhone Number [facility] [address] [place] [address], [facility] NPR[facility] [address] [place] [address] from Last 3 Months or Most Recently Relevant to Health Maintenance Insurance Care Teams Team MemberRelationshipSpecialtyStart DateEnd Date None Reported, Pcp PCP - GeneralFamily Medicine09/30/21
--- OUTSIDE RECORDS SUMMARY | 2025-02-10 13:00 | XMS_ITS | Clinical Summary ---
Author Organization [facility] Address [address] [place] [address] Care Team Providers Care Media Aid Name Role Phone Paris Raymond Primary Care Provider Unav ailable Allergies No known active allergies Medications MedicationSigDispense QuantityRefillsLast FilledStart DateEnd DateStatus fluticasone (50 mcg per actuation) nasal solution (FLONASE) Inhale 1 [place] into affected nostril(s) once daily.02/20/2021ctive hydrOXYzine pamoate (VISTARIL) 25 mg capsule Take 25 mg by mouth once daily.01/11/2021ctive pantoprazole (PROTONIX) 40 mg delayed-release tablet Take 40 mg by mouth once daily.02/20/2021ctive psyllium husk (MetamuciL) 3.4 gram/5.4 gram powd TAKE 1 TEASPOONFUL BY MOUTH EVERY MORNING MIXED IN JUICE OR WATER DIRECTED *CAN INCREASE TO 2 TEASPOONS DAILY IF NEEDED*02/20/2021ctive rosuvastatin (CRESTOR) 20 mg tablet Take 0.5 Tablets by mouth at bedtime.02/21/2021ctive SUMAtriptan (IMITREX) 50 mg tablet Take 50 mg by mouth.02/20/2021ctive oxyCODONE-acetaminophen (PERCOCET) 5-325 mg per tablet Indications:Inguinal hernia, rightTake 1 Tablet by mouth every 4 hours if needed for Pain. Max acetaminophen dose: 4000mg in 24 hrs. 15 Tablet 06/06/2021 4:13 PM CDT06/06/2021ctive Active Problems ProblemNoted DateDiagnosed DateTinnitus, uudtzmraj29/20/2025Tobacco dependence due to dyafpxhcdo46/21/8381Ifrtesyh63/21/2022bstructive sleep apnea of adult 06/01/20210263Popkcpdsyxaygq25/21/2022Herniation of lumbar intervertebral disc without sdsjoosmua93/21/2022 Overview (06/01/2021): Sep 25, 2010 Entered By: KEANU SHANNON Comment: h/o discectomy/surgery Gastroesophageal reflux yyloztt2606/01/20210151Tvfojtfe55/21/2022lcohol dependence 06/01/20213579Lrvpuli18/21/2022Major depressive gzvliaws96/21/2022onstipation 06/01/2021Inguinal hernia, right06/01/2021 Encounters DateTypeDepartmentCare EiqdDplnexcibhy30/31/2025 12:49 PM CDT - 12/11/2024 11:59 PM CDTHospital Encounter [facility] [address] [place] [address] Dani Martin MD Migraine with aura, not intractable, without status icjaewwjnkn87/31/2025Travel 11/26/2024 1:30 PM CDTOffice Visit [address] [phone] Dani Martin MD Consult (Other disorders of vestibular function, bilateral)11/26/2024 1:00 PM CDTOffice Visit [address] [phone] Billie Mccoy AuD Hearing Problem (Hearing test )11/25/2024Travelfrom Last 3 Months Immunizations ImmunizationAdministration DatesNext DueHepatitis B (Adult)04/08/2009,02/23/1997 ,01/05/1997Influenza Virus, Toscbeivbie36/30/2013,11/28/2006Influenza, IIV3 (Age >=3 years)01/24/2010TD, KUQWSSJNKML89/01/2006,02/11/2001Td (Age >=7 Years) 11/25/2001Tdap08/11/2015,04/08/2009 Family History Medical HistoryRelationNameCommentsAnesthesia ProblemNo Family History Social History Tobacco UseTypesPacks/DayYears UsedDateSmoking Tobacco: XlpdjxHbyrnysgcw7Lxav: 04/30/2023Smokeless Tobacco: Never Tobacco Cessation:Counseling Given: Not Answered Alcohol UseStandard Drinks/WeekCommentsYes0 (1 standard drink = 0.6 oz pure alcohol)whiskey. 1/4 bottle of 3.75 ml per episodeSocial ConnectionsAnswerDate RecordedFrequency of Communication with Friends and FamilyNot on file02/11/2021 Financial Resource StrainAnswerDate RecordedDifficulty of Paying Living Expenses Not on file2Difficulty of Paying Living ExpensesNot on file02/11/2021 Sex and Gender InformationValueDate RecordedSex Assigned at BirthNot on file Legal CaxSfsb0402/25/2012 6:52 AM CSTGender IdentityNot on fileSexual Orientation Not on file Last Filed Vital Signs Vital SignReadingTime TakenCommentsBlood Ysfrxyrm022/7205 4:09 PM CDT Czoin598406/06/2021 5:15 PM XUWMrknyyofhlk41.1 ??C (97 ??F)06/06/2021 3:35 PM CDT Respiratory Ldvv629206/06/2021 5:00 PM CDTOxygen Njhybgqeqo18%06/06/2021 5:15 PM CDTInhaled Oxygen Concentration--Ikovkf295.8 kg (228 lb 12.8 oz)06/19/2021 4:09 PM OGSKggnlu381.2 cm (5' 11.75)06/06/2021 1:06 PM CDTBody Mass Index31.25 06/06/2021 1:06 PM CDT Plan of Treatment Health MaintenanceDue DateLast DoneCommentsDepression screening for age 12+ 1984HIV for age 15-65002/23/1987Hepatitis C screening for age 18-79 02/23/1990Pneumococcal series for age 50+ (1 of 2 - PCV)02/23/1991Colonoscopy through age Lipids for age 45-Zoster (shingles) series for age 50+ (1 of 2)02/23/2022MI (ht and wt on same day) for age 18+06/01/2022 06/01/2021, 05/10/2021OVID-19 vaccine series ( - 2024- season)2024 Influenza Vaccine (#1), 01/24/2010, 11/28/2006Tetanus ovtnepg57, 04/08/2009, 02/11/2005, Additional history exists RSV vaccine for adults or (1 - 1-dose 75+ series)02/23/2047Hepatitis B series for 19+Shcditaxe11/26/2010, 02/23/1997, 01/05/1997 Medical Devices ImplantedTypeAreaManufacturerDevice IdentifierShelf Expiration DateModel / Serial / LotMesh Inguinal 3x6in Marlex - [id number] Implanted:Qty: 1 on 06/06/2021 by [facility] SystemDavol [id number] / / [id number] Procedures Procedure NamePriorityDate/TimeAssociated DiagnosisCommentsMR HEAD BRAIN WWO Nuorxuv7712/11/2024 1:39 PM CDT Migraine with aura, not intractable, without status migrainosus from Last 3 Months Results * MR HEAD BRAIN WWO (12/11/2024 1:39 PM CDT)Anatomical RegionLateralityModality BRAIN, HEADMagnetic ResonanceSpecimen (Source)Anatomical Location / Laterality Collection Method / VolumeCollection TimeReceived Time12/11/2024 2:18 PM CDT Impressions 12/11/2024 2:18 PM CDT 1. No acute intracranial abnormality 2. Exwa-ey-gkclyfvd generalized cerebral volume loss. Scattered foci of T2 signal within the white matter of both cerebral hemispheres are nonspecific and may represent chronic deep white matter small vessel ischemic changes or sequela migraine headache 3. No abnormal enhancement or enhancing lesions. Dictated by Rudi Vo MD @ 12/11/2024 2:18:29 PM (Electronically Signed) Narrative 12/11/2024 2:18 PM CDT For Patients: As a result of the Cures Act, medical imaging exams and procedure reports are released immediately into your electronic medical record. You may view this report before your referring provider. If you have questions, please contact your health care provider. INDICATION: Migraine headaches. COMPARISON: None. TECHNIQUE: Multiplanar T1, T2, FLAIR and diffusion-weighted imaging. Post gadolinium T1 weighted sequences. Gadolinium 15 cc IV. FINDINGS: Nctl-en-zxvfqpoo generalized volume loss. Scattered foci of T2/FLAIR signal hyperintensity within the white matter of both cerebral hemispheres are nonspecific and may represent chronic deep white matter small ischemic changes or sequela of migraine headache. No intracranial hemorrhage. No abnormal ventricular dilatation. Intracranial vascular flow voids are preserved. No mass effect. No midline shift. No restricted diffusion to suggest acute ischemia. Tiny old lacunar infarcts cerebellar hemispheres. No abnormal enhancement or enhancing lesions. Orbits are unremarkable. Normal appearing sella. Small mucous retention cyst within the bilateral maxillary sinuses. Remaining visualized paranasal sinuses and mastoid air cells are unremarkable. Procedure Note Rudi Vo MD, PhD - 12/11/2024 For Patients: As a result of the Cures Act, medical imagingexams and procedure reports are released immediately into your electronicmedical record. You may view this report before your referring provider.If you have questions, please contact your health care provider. INDICATION: Migraine headaches. COMPARISON: None. TECHNIQUE: Multiplanar T1, T2, FLAIR and diffusion-weighted imaging. Post gadoliniumT1 weighted sequences. Gadolinium 15 cc IV. FINDINGS: Jvix-ur-xldsekgp generalized volume loss. Scattered foci of T2/FLAIRsignal hyperintensity within the white matter of both cerebral hemispheresare nonspecific and may represent chronic deep white matter small ischemicchanges or sequela of migraine headache. No intracranial hemorrhage. No abnormal ventricular dilatation.Intracranial vascular flow voids are preserved. No mass effect. No midline shift. No restricted diffusion to suggest acute ischemia. Tiny old lacunarinfarcts cerebellar hemispheres. No abnormal enhancement or enhancing lesions. Orbits are unremarkable. Normal appearing sella. Small mucous retention cyst within the bilateral maxillary sinuses. Remaining visualized paranasal sinuses and mastoid air cells areunremarkable. IMPRESSION: 1. No acute intracranial abnormality 2. Fajt-zv-wreooyxa generalized cerebral volume loss. Scattered foci of J7glzmji within the white matter of both cerebral hemispheres arenonspecific and may represent chronic deep white matter small vesselischemic changes or sequela migraine headache 3. No abnormal enhancement or enhancing lesions. Dictated by Rudi Vo MD @ 12/11/2024 2:18:29 PM (Electronically Signed) Authorizing ProviderResult TypeResult StatusIan-Ankush Martin MDMRFinal Result from Last 3 Months Insurance * Guarantor: Alejandro Barahona TypeRelation to PatientDate of BirthPhone Billing AddressWorkers IixgYmra92/[birth year]/[address] [place] [address] on file * Guarantor: MARCO ANTONIO Conroy TypeRelation to PatientDate of PhoneBilling AddressJ.W. [facility]/SsbdHlytkrlk80/29/1967 [place] [address] Advance Directives * Full Code (Latest Code Status on File) Date ActivatedDate InactivatedComments06/06/2021 12:43 PM06/06/2021 7:39 PM QuestionAnswerCommentsCode Status Discussion:* Not Discussed Care Teams Team MemberRelationshipSpecialtyStart DateEnd Date Paris Raymond PCP - General05/30/07
--- OUTSIDE RECORDS SUMMARY | 2025-02-10 13:00 | XMS_ITS | Clinical Summary ---
Author Organization [facility] Address [address] [place] [address] Care Team Providers Care Paint Roller Winder Name Role Phone Rosa Rosas PA-C Primary Care Provider Source Comments You are receiving this document as you are listed as the primary care provider,follow-up provider, or the patient has been referred to you for consultation.This is in compliance with the Medicare andUniversity Hospitals Lake West Medical Centercaid EHR Incentive Program,which states Providers who transition their patient to another setting of careor provider of care or refers their patient to another provider of care shouldprovide summary care record for each transition of care or referral. [employer] Allergies No known active allergies Medications MedicationSigDispense QuantityRefillsLast FilledStart DateEnd DateStatus nortriptyline (PAMELOR) 25 MG capsule 25 mg daily at bedtime.01/31/2016Active SUMAtriptan (IMITREX) 25 MG tablet 25 mg daily as needed.02/18/2016Active omeprazole (PRILOSEC) 20 MG capsule Take 1 Cap by mouth daily. Take 1 hour before a meal. 30 Cap 11003/07/2016Active Active Problems ProblemNoted DateDiagnosed DateBack pain11/08/20064319Mgskqsc65/28/2007nkle injury 11/08/2006 Immunizations ImmunizationAdministration DatesNext DueFlu Vac (3+ yrs)01/24/2010,11/28/2006 HepB Adult (Engerix-B, 20+ yrs, 3 dose series)04/08/2009,02/23/1997,02/23/1997, 01/05/1997,01/05/1997Td1,11/25/2001Tdap04/08/2009 Social History Tobacco UseTypesPacks/DayYears UsedDateSmoking Tobacco: Every DqlVdqgzwtvsq230 Smokeless Tobacco: NeverAlcohol UseStandard Drinks/WeekCommentsYes0 (1 standard drink = 0.6 oz pure alcohol)Sex and Gender InformationValueDate RecordedSex Assigned at BirthNot on fileLegal RauTpfx00/10/2012 4:29 AM CDTGender Identity Not on fileSexual OrientationNot on fileOccupationIndustryJob Start DateJob End DateNot on fileNot on fileNot on fileNot on file Last Filed Vital Signs Vital SignReadingTime TakenCommentsBlood Etdcqhzw980/71003/07/2016 4:04 PM CHARGE MASTER SPECIALIST Dpzvb7595 4:04 PM YGVIxyloadpcze34.3 ??C (99.1 ??F)03/07/2016 4:04 PM CSTRespiratory Ohjs828303/07/2016 4:04 PM CSTOxygen Faxdfpnoya59%05/21/2007 9:14 AM CDTInhaled Oxygen Concentration--Feyjjq58.4 kg (217 lb)03/07/2016 4:04 PM CHARGE MASTER SPECIALIST Surwsy916.3 cm (5' 11)03/07/2016 4:04 PM CSTBody Mass Index30.27003/07/2016 4:04 PM CHARGE MASTER SPECIALIST Plan of Treatment Health MaintenanceDue DateLast DoneCommentsColon Cancer Screening Plan Due 1972Hep C Screening (Preventive Services)1972PSA Screening Vrtjcutkkj14/13/1973HIV Screening (Preventive Services)1988Adult Preventive Visit04/08/, 05/14/2007, 11/08/2006Cholesterol , 05/21/2007, 11/09/2006DTaP/Tdap/Td Vaccine (2 - Tdap) , 11/25/2001, 11/25/2001Pneumococcal Vaccine 50+ Yrs (1 of 1 - PCV)02/23/2022Zoster/Shingles Vaccine (1 of 2)02/23/2022OVID-19 Vaccine (1 - season)2024Influenza Vaccine (#1), 11/28/2006 RSV Vaccine (1 - 1-dose 75+ series)02/23/2047HepB TnrklkpVdezzeajv63/26/2010, 02/23/1997, 02/23/1997, Additional history existsHepA VaccineAged OutNo longer eligible based on patient's age to complete this topicHib VaccineAged OutNo longer eligible based on patient's age to complete this topicIPV (Polio) Vaccine Aged OutNo longer eligible based on patient's age to complete this topicMCV4 VaccineAged OutNo longer eligible based on patient's age to complete this topic Meningococcal B VaccineAged OutNo longer eligible based on patient's age to complete this topic Procedures Procedure NamePriorityDate/TimeAssociated DiagnosisCommentsLIPID PANEL & DIRECT LDL (IF NEEDED)Thcefgc1804/08/2009 11:22 AM CHARGE MASTER SPECIALIST Lipid Screening from Last 3 Months or Most Recently Relevant to Health Maintenance Results * (ABNORMAL) LIPID PANEL AND DIRECT LDL(IF NEEDED) (04/08/2009 11:22 AM CHARGE MASTER SPECIALIST) ComponentValueRef RangeTest MethodAnalysis TimePerformed AtPathologist YwvlzcjkmMvmiokeanrh0862 - 199 mg/huHQGFHFOHHXVFFPTjqzdbgxvkik427(H)0 - 149 mg/sjTUNPVPKGFTSWOKEAW52(L)>40 mg/dlHEALTHPARTNERSLDL, Calc.1230 - 129 mg/dl HEALTHPARTNERSHours Fuwyspi16qxzgcFZXCTAXXQKPJQXRccaaybi (Source)Anatomical Location / LateralityCollection Method / VolumeCollection TimeReceived Time 04/08/2009 11:22 AM CST04/08/2009 11:35 AM CHARGE MASTER SPECIALIST Narrative Authorizing ProviderResult TypeResult StatusSamuel Beauchamp MDLAB_1Final Result Performing OrganizationAddressCity/State/ZIP CodePhone Number [facility] [address] [phone] from Last 3 Months or Most Recently Relevant to Health Maintenance Insurance * Guarantor: Yasir Barahona TypeRelation to PatientDate of BirthPhone Billing AddressPersonal/XfwevxVxge[birth year][id number] [place], [place] [id number] * Guarantor: Yasir Barahona TypeRelation to PatientDate of BirthPhone Billing AddressPersonal/TihnxqSgtr39/[birth year]/[id number] [place], [place] [id number] Care Teams Team MemberRelationshipSpecialtyStart DateEnd Date Rosa Rosas PA-C [facility] - General04/12/09
[2025-02-10 13:14] LABS: HCO3 VBG 11 mmol/L (21-28); PO2 VBG 37.7 mmHG (25-47)
[2025-02-10 13:17] LABS: Hematocrit* 47.9 % (37.0-53.0); Hemoglobin* 14.7 gm/dL (13.5-17.5); Immature Granulocytes Abs Auto 0.94 K/uL (0.00-0.30); Immature Granulocytes Pct Auto 9.3 %; Mean Corpuscular HGB Conc 31 gm/dL (32-36); Mean Corpuscular Hemoglobin 29 pg (26-34); Mean Corpuscular Volume 95 fL (80-100); RDW Coefficient of Variation % 15.4 % (11.5-15.5); Red Blood Count* 5.07 m/uL (4.30-5.90); White Blood Count* 10.10 K/uL (4.50-11.00)
[2025-02-10] MEDS: ATROPINE 1 mg/10 ml IVP (13:18)
[2025-02-10 13:19] LABS: PCO2 VBG 65 mmHG (40-50); pH VBG 6.827 (7.32-7.43)
[2025-02-10 13:22] LABS: Lymphocytes Absolute Auto 5.70 K/uL (0.90-2.90); Slide Review Reflex Yes
[2025-02-10 13:33] LABS: Albumin* 3.0 g/dL (3.3-5.0); Chloride* 106 mmol/L (96-114); Potassium* 3.8 mmol/L (3.6-5.1); Sodium* 134 mmol/L (135-149)
[2025-02-10 13:36] LABS: Alanine Aminotransferase* 241 U/L (4-50); Alkaline Phosphatase* 94 U/L (40-150); Anion Gap 19 mEq/L (7-15); Aspartate Amino Transferase* 190 U/L (12-35); Bilirubin Total* 0.6 mg/dL (0.1-1.5); Blood Urea Nitrogen* 12 mg/dL (7-30); Calcium* 8.2 mg/dL (8.4-10.6); Creatinine* 1.0 mg/dL (0.5-1.5); Estimated Glomerular Filt Rate 91 ml/min; Glucose* 326 mg/dL (60-115); Total Protein* 5.6 g/dL (6.0-8.3)
[2025-02-10] MEDS: TENECTEPLASE 5 MG/ML inj 45 MG IVP (13:36)
[2025-02-10 13:41] LABS: Carbon Dioxide* 9 mmol/L (20-32)
[2025-02-10 13:48] LABS: Slide Review Acceptable Review (Acceptable)
--- NOTE | 2025-02-10 14:33 | RESP.RT ---
Code blue airway management, cpr, vent management x 1 hour.
--- NOTE | 2025-02-10 14:49 | ED_ITS ---
HPI - General Adult General Date Seen: 02/10/25 Chief complaint: Cardiac Arrest/CPR Stated complaint: cardiac Time Seen by Provider: 02/10/25 13:52 Source: EMS Mode of arrival: EMS History of Present Illness HPI narrative: Patient is a 54-year-old male with no medical issues brought in by EMS in cardiac arrest. Per EMS he called the emergency line due to chest pain. While he was on the triage line he became unresponsive and EMS was sent immediately. They state they were there probably within 6 minutes of him losing consciousness. When they arrived he was sitting in his chair and was unresponsive. CPR was started at that time. He and that time was initially PE a. Did have 2 episodes of VFib which was shocked. He was also given 4 rounds of epi. They states he has had these occasional episodes will heal look like he is moving his arm or his head. He is intubated. Related Data Previous Rx's ?Medication ?Instructions ?Recorded ketorolac 10 mg tablet 10 mg PO Q8H 5 days #15 tabs 08/01/23 Allergies Allergy/AdvReac Type Severity Reaction Status Date / Time No Known Drug Allergies Allergy Verified 08/01/23 11:18 Review of Systems Status of ROS: Reports: unobtainable due to medical condition Exam Narrative: Exam Narrative: Const: Well-nourished, Well-developed, intubated and unresponsive Eyes: no conjunctival injection, and symmetrical lids HENT: Atraumatic external nose and ears. Moist mucous membranes. Neck: Symmetric, trachea midline, No thyromegaly. CVS: Pulses cannot be felt. Poor heart squeeze seen on ultrasound RESP: Intubated. Clear to auscultation bilaterally. GI: Nondistended MSK:Extremities w/o deformity Skin: Warm, Dry. No rashes or lesions. No bruising noted Neuro: Unresponsive, does occasionally have small movements of his arms and head Psych: Unresponsive Medical Decision Making MDM Narrative Medical decision making narrative: Patient is a 54-year-old male presenting in cardiac arrest via EMS. Your waiting in the room when he arrived and we moved him quickly to the bed. He was switched to our monitors. At time he was noted to be in PA on the 1st pulse check as we are using a Jarad machine. Multiple people checked and no pulses were felt. Lab work was ordered immediately. Point of care blood sugar was 142 via EMS and 176 for us. I tried to get a good view of his heart was having difficulty. The part I did see I do not see any obvious signs of tamponade or PE. Part of the heart a could see also only showed very faint if any cardiac movement when we were doing pulse checks. He had bilateral breath sounds and does not appear to be a tension pneumothorax. VBG came back quickly showed he was very acidotic and an amp of bicarb was given. Also gave calcium for possible hyperkalemia as those labs were take longer to return and we are unsure what is causing his cardiac arrest. We continued to give epinephrine throughout the code. During pulse checks he Occasionally will become bradycardic. Did try atropine which did not make any noticeable changes. We are getting good ventilation with the event and I do not believe the cause of this was hypoxia. He was hypothermic at 93? and we did put him in Jose Carlos Hugger to warm him up but also that level hypothermia should still be responsive to ACLS protocol. Did get him up to 95? with no improvement still. This is labs did come back showing he had a normal potassium. As far as we are where he had no toxins in his body. We of the speak to the family states he has no medical issues [facility] Has been [facility] and has been on the high meet diet which has been getting [facility] the [facility]. We considered getting a chest x-ray but this is difficult to do with the Jarad machine and I did believe it was important to keep compressions going rather than stopping them for extended period of time to get a chest x-ray. He does continue to have occasional episodes with looks to be some movement but these quickly go away. With nothing else helping it was decided to try T and K to see if there was a possible clot your missing either in his heart or lungs. TNK was ordered. There is side we will continue compressions for another 30 minutes to see if there is any improvements. Continue to do post checks and epinephrine without any signs of pulses. Continue to be in PEA. After another 30 minutes and now at this time 2 hours total of CPR time I spoke to his family again and it was decided to terminate ACLS. Time of 14:11. These movement episodes I believe her likely focal seizures resulting from his severe hypoxia an acidosis. They never appear to be truly purposeful. Lab Data Labs: Lab Results 02/10/25 Range/Units 13:08 WBC 10.10 (4.50-11.00) K/uL RBC 5.07 (4.30-5.90) m/uL Hgb 14.7 (13.5-17.5) gm/dL Hct 47.9 (37.0-53.0) % MCV 95 (80-100) fL MCH 29 (26-34) pg MCHC 31 L (32-36) gm/dL RDW Coeff of Carly 15.4 (11.5-15.5) % Plt Count 181 (140-440) K/uL Neut % (Auto) 28.5 L (42.0-72.0) % Lymph % (Auto) 56.7 H (20-44) % Bulloch % (Auto) 4.6 (0.0-11.0) % Eos % (Auto) 0.7 (0.0-7.0) % Baso % (Auto) 0.2 (0.0-3.0) % Neut # (Auto) 2.90 (1.7-7.0) K/uL Lymph # (Auto) 5.70 H (0.90-2.90) K/uL Bulloch # (Auto) 0.50 (0.00-0.90) K/UL Eos # (Auto) 0.07 (0.00-0.50) K/uL Baso # (Auto) 0.02 (0.00-0.30) K/uL Abs Immat Gran (auto) 0.94 H (0.00-0.30) K/uL Imm/Tot Granulo (auto) 9.3 % Diff Slide Review Acceptable Review (Acceptable) VBG pH 6.827 L* (7.32-7.43) VBG pCO2 65 H* (40-50) mmHG VBG pO2 37.7 (25-47) mmHG VBG HCO3 11 L (21-28) mmol/L Sodium 134 L (135-149) mmol/L Potassium 3.8 (3.6-5.1) mmol/L Chloride 106 (96-114) mmol/L Carbon Dioxide 9 L* (20-32) mmol/L Anion Gap 19 H (7-15) mEq/L BUN 12 (7-30) mg/dL Creatinine 1.0 (0.5-1.5) mg/dL Estimated GFR 91 ml/min Glucose 326 H (60-115) mg/dL Calcium 8.2 L (8.4-10.6) mg/dL Total Bilirubin 0.6 (0.1-1.5) mg/dL AST 190 H (12-35) U/L ALT 241 H (4-50) U/L Alkaline Phosphatase 94 (40-150) U/L Total Protein 5.6 L (6.0-8.3) g/dL Albumin 3.0 L (3.3-5.0) g/dL Critical Care Time Critical Care Time Critical Care Time: Yes Attestation: The patient required my highest level preparedness to intervene emergently and I personally spent this critical care time directly and personally managing the patient. This critical care time included: Obtaining a history; Examining the patient; Pulse oximetry; Ordering and reviewing of studies; Arranging urgent treatment with development of a management plan; Evaluation of patients response to treatment; Frequent reassessment discussions with other providers. This critical care time was performed to assess and manage the high probability of imminent life-threatening deterioration that could result in multiorgan failure. It was exclusive of separate billable procedures and treating other patients and teaching time. Total Critical Care Time in Minutes: 95 Discharge Plan Discharge Clinical Impression: Cardiac arrest Patient Disposition: Date/Time: 02/10/25 14:11 Procedures ABG Interpretation ABG Results: 02/10/25 13:08 VBG pH 6.827 L* VBG pCO2 65 H* VBG pO2 37.7 VBG HCO3 11 L
== END 2025-02-10 19:55 | disposition expired ==
PROVIDERS: Emergency Provider Student in an Organized Health Care Education/Training Program
DX: I46.9 Cardiac arrest, cause unspecified (principal)
CPT/HCPCS: 36415; 80053; 82803; 85025; 92950; 96361; 96374; 96375; 96376; 99285; 99291; 99292; J0169; J0461; J3010; J3101; J7030